=== PATIENT | male | born 1955 | race Caucasian/White ===

== ENCOUNTER → 2016-05-23 | Outpatient (CLI) | payer OTHER ==
[~2016-05-23] MED LIST: /ARTH50TA PO; /DULO30CA PO; /GLIP10TAB OR; /GLIP10TAB PO; /LOR25TA PO; ACTO15TA OR; ACTO30TA6 PO; AMLO10TA2 PO; AMRI15CA PO; AMRIX PO; ARTHROTEC PO; ASPI81TA7 PO; ASPI81TA83 OR; ASPI81TA85 PO; BUTR5DIS2 TOP; CINN500C9 PO; COLA50CA3 PO; CORE12.5 PO; CYMB60CA3 PO; DOCU10CA PO; FLECTOR1.3 TOP; FURO20TA2 PO; GEMF600T OR; GEMF600T PO; GLUC1000 OR; INSUH10VL SUBQ; LASI20TA OR; LASI20TA PO; LEVEMIR INSULIN SC; LIMBREL PO; LOPR50TA OR; LOPR50TA PO; LORTAB OR; LYRI150C OR; LYRI150C PO; LYRI200C PO; METF500T PO; MS CONTIN OR; NOVOINJ3 SC; OXYC1TAB15 PO; REGL10TA6 PO; RYZOLT PO; SENO8.6T9 OR; SIMV80TA OR; SPIR25TA2 PO; SPIR50TA2 PO; TPS CREAM TOP; ULTR300T OR; ULTR50TA PO; VITA200015 PO; VITA500046 PO; VOLT1GEL2 TOP; ZANA4CAP OR; ZANA4CAP PO; [UNRECOGNIZED DRUG - CODE] PO; [UNRECOGNIZED DRUG - CODE] PO; [UNRECOGNIZED DRUG - CODE] PO; colace PO; norco PO; vitamin b SC
--- NOTE | 2016-06-11 23:27 | ECWPNPC ---
PATIENT NAME: CASH AYERS : 1955 GENDER: MALE VISIT DATE: 05/23/2016 DISCHARGE DATE: 05/23/16 1522 VISIT LOCKED DATE TIME: PHYSICIAN: ESTELA CONNOLLY RESOURCE: ESTELA CONNOLLY HISTORY OF PRESENT ILLNESS HISTORY OF PRESENT ILLNESS: PAIN THE PATIENT DESCRIBES THE PAIN... FALL RISK SCREENING: SCREENING :NO FALLS IN THE PAST YEAR TODAY'S VISIT: CONTINUES W LBP R>L W RADIATION INTO RIGHT LEG. THIS IS A WORK RELATED INJURY DOI :Mar. VAS 9.5/10 PAIN SCORE. PAIN AGGREVATED W WALKING OR PROLONGED SITTING. REPORTS GOOD EFFECT AT REDUCING PAIN AND KEEPING FUNCTIONAL W USE OF CURRENT PAIN MEDICATION . CURRENT CHRONIC PAIN MEDICATION:PERCOCET 7.5/325 Q4 HR PRN AND CYMBALTA 60MG DAILY.DENIES ADVERSE EFFECT W MEDICATION. CURRENT MEDICATIONS TAKING ASPIR-81 81 MG TABLET DELAYED RELEASE 1 TABLET ORALLY DAILY TAKING COREG 12.5 MG TABLET ORALLY BID TAKING CHOLECALCIFEROL 5000 UNIT CAPSULE ORALLY DAILY TAKING CINNAMON 500 MG CAPSULE ORALLY BID TAKING FUROSEMIDE 20 MG TABLET 1 TABLET ORALLY DAILY TAKING INSULIN NPH (HUMAN) (ISOPHANE) 100 UNIT/ML SUSPENSION SUBCUTANEOUS 40U AM 70U PM TAKING CYMBALTA 60 MG CAPSULE DELAYED RELEASE PARTICLES 1 CAPSULE ORALLY ONCE A DAY TAKING OXYCODONE-ACETAMINOPHEN 7.5-325 MG TABLET 1-2 ORALLY TID PRN MDD 6 NOT-TAKING GLIPIZIDE 10 MG TABLET 1 TABLET ORALLY BID NOT-TAKING METFORMIN HCL 500 MG TABLET 1 TABLET WITH MEALS ORALLY TWICE A DAY NOT-TAKING COLACE 100 MG CAPSULE 1 CAPSULE NEEDED ORALLY ONCE A DAY MEDICATION LIST REVIEWED AND RECONCILED WITH THE PATIENT PAST MEDICAL HISTORY IDDM HTN CHRONIC LOW BACK PAIN DIABETIC NEUROPATHY ALLERGIES FENTANYL: NAUSEA AND VOMITING: ALLERGY SULFA (FOR ALLERGY USE ONLY): HIVES: ALLERGY ALEX INHIBITOR (FOR ALLERGIES USE ONLY): THROAT CLOSES: ALLERGY PREGABALIN: EDEMA SOB: ALLERGY BUPRENORPHINE: UPSET STOMACH: ALLERGY CELEBREX: SKIN BLISTERS: ALLERGY SOCIAL HISTORY GENERAL: TOBACCO USE ARE YOU A:NONSMOKER LEARNING BARRIERS / SPECIAL NEEDS ORIENTED TO PLAN OF CARE: PATIENT, PAIN MANAGEMENT PATIENT, ORIENTED TO PLAN OF CARE: PATIENT, PAIN MANAGEMENT PATIENT. NEW PATIENT PAIN DIARY TODAY'S VISITNOTES FROM 0-10, WHAT LEVEL IS YOUR PAIN TODAY?0 PAIN CLINIC PFS, CLERGY, PUBLIC HEALTH REFERRALS PFS REFERRAL NEEDED?NO CLERGY REFERRAL NEEDED?NO PUBLIC HEALTH REFERRAL NEEDED?NO WAS THE PROVIDER NOTIFIED OF ANY PERTINENT INFO?NO PFS REFERRAL NEEDED?NO CLERGY REFERRAL NEEDED?NO PUBLIC HEALTH REFERRAL NEEDED?NO WAS THE PROVIDER NOTIFIED OF ANY PERTINENT INFO?NO REVIEW OF SYSTEMS CONSTITUTIONAL: ANY CHANGE IN YOUR MEDICAL CONDITION? NO . CHILLS NO . FEVER NO . INFECTION: DO YOU HAVE NEW INFECTIONS? NO . DO YOU HAVE HISTORY OF MRSA? NO . MUSCULOSKELETAL: ANY NEW PATTERNS OF PAIN OR NUMBNESS? NO . GASTROENTEROLOGY: ANY NEW CHANGE IN BOWEL CONTROL? NO . GENITOURINARY: ANY NEW CHANGE IN BLADDER CONTROL? NO . IS THERE A CHANCE YOU COULD BE ? NO . HEMATOLOGY/LYMPH: DO YOU TAKE ANY BLOOD THINNERS? (FOR EXAMPLE- COUMADIN, PLAVIX, AGGRENOX, PLATEL, PRADAXA, OR XARELTO) NO . WHEN WAS YOUR LAST DOSE? DATE: TIME: . NEUROLOGY: HAVE YOU FALLEN IN THE PAST 6 MONTHS? FELL SEVERAL TIMES SINCE WE LAST SAW &QUOT;7&QUOT; . ANY NEW EXTREMITY NUMBNESS OR WEAKNESS? NO . CARDIOLOGY: DO YOU HAVE A PACEMAKER OR DEFIBRILLATOR? NO . RESPIRATORY: HAVE YOU BEEN SICK IN THE PAST WEEK? NO . FEVER NO . FLU LIKE SYMPTOMS? NO . COUGH NO . INTEGUMENTARY: DO YOU HAVE ANY RASHES OR OPEN SORES? NO . ALLERGIC/IMMUNO: ARE YOU ALLERGIC TO SHELLFISH OR IV DYE? NO . ANY NEW ALLERGIES? NO . PSYCHIATRIC: DO YOU HAVE THOUGHTS OF HURTING YOURSELF OR SOMEONE ELSE? NO . ARE YOU ABUSED, NEGLECTED, OR IN AN UNSAFE ENVIRONMENT? NO . ENDOCRINOLOGY: ARE YOU DIABETIC? NO . OTHER: DO YOU NEED ANY PRESCRIPTIONS? YES . IF YES, PLEASE LIST: ____ . ANY NEW PROBLEMS WITH YOUR MEDICATIONS? NO . WHEN DID YOU LAST EAT? ____ . WHEN DID YOU LAST DRINK? ____ . WHAT DID YOU LAST DRINK? ____ . NAME OF PERSON DRIVING YOU HOME? ____ . DO YOU HAVE ANY OTHER QUESTIONS OR CONCERNS NO . REVIEWED BY: PROVIDER: ESTELA ANGULO . VITAL SIGNS WT 232 LBS, HT 68 IN, BMI 35.27 INDEX, BP 160/98 MM HG, HR 75 /MIN, RR 18 /MIN, TEMP 96.9 F, OXYGEN SAT % 96%, NA INITIALS SC 14:13, REVIEWED BY: KG. EXAMINATION GENERAL EXAMINATION: LUNGS:LUNG SOUNDS ARE CLEAR. HEART:HEART RATE REGULAR. MUSCULOSKELETAL:*, MUSCLE STRENGTH TESTING 3/5 RIGHT LEG 2/5 LEFT, PALPATION: POSITIVE FOR PAIN OVER L/S SPINE. POSITIVE FOR PAIN OVER L/S PARSPINALS. DIAGNOSTIC: . ASSESSMENTS POST LAMINECTOMY SYNDROME - M96.1 (PRIMARY) CHRONIC PRESCRIPTION OPIATE USE - Z79.899 SACROILIAC JOINT PAIN - M53.3 TREATMENT POST LAMINECTOMY SYNDROME REFILL CYMBALTA CAPSULE DELAYED RELEASE PARTICLES, 60 MG, 1 CAPSULE, ORALLY, ONCE A DAY, 30 DAY(S), 30 CAPSULE, REFILLS 2 REFILL OXYCODONE-ACETAMINOPHEN TABLET, 7.5-325 MG, 1-2, ORALLY, TID PRN MDD 6, 30 DAY(S), 180, REFILLS 0 START CYCLOBENZAPRINE HCL TABLET, 10 MG, 1 TABLET, ORALLY, THREE TIMES A DAY, 30 DAY(S), 30, REFILLS 1 INJECTION ANESTHETIC SACROILIAC JOINT NOTES: ISTOP REGISTRY REVIEWED AND DEMNOSTRATES COMPLLIANCE. BRINGS IN MEDICATIONS WHICH IS APPROPRIATE FOR WHAT WAS DISPENSED. RECENT URINE TOXICOLOGY REVIEWED. NO UNAUTHORIZED MEDICATIONS. NO ILLICIT SUBSTANCES AND PRESCRIBED MEDICATIONS WERE PRESENT. , RISKS AND BENEFITS OF NARCOTIC/OPIOD MEDICATIONS WERE REVIEWED WITH PATIENT - THIS INCLUDES BUT IS NOT LIMITED TO RISK OF DEPENDANCE/DEVELOPMENT OF ADDICTION, MOOD DISTURBANCE AND DEPRESSION, OSTEOPOROSIS, HORMONAL AND LABIDAL CHANGES, RESPIRATORY DEPRESSION AND . PATIENT IS ADVISED NOT TO DRIVE WHILE ON THESE MEDICATIONS.URINE TOX TODAY. PROCEDURES PN WORKMANS' COMP OPINION IN YOUR OPINION, WAS THE INCIDENT THAT THE PATIENT DESCRIBED THE COMPETENT MEDICAL CAUSE OF THIS INJURY/ILLNESS? YES ARE THE PATIENT'S COMPLAINTS CONSISTENT WITH HIS/HER HISTORY OF THE INJURY/ILLNESS? YES IS THE PATIENT'S HISTORY OF THE INJURY/ILLNESS CONSISTENT WITH YOUR OBJECTIVE FINDING? YES WHAT IS THE PERCENTAGE OF TEMPORARY IMPAIRMENT? MODERATE TO MARKED = 66.7% IS THE PATIENT WORKING? NO DOCTOR ON SITE: ONUR BIRMINGHAM MD FOLLOW UP 2WK POST W DR LAFLEUR (REASON: RSIJ W/C) ELECTRONICALLY SIGNED BY ADELE DUMONT ON 06/09/2016 AT 11:36 AM EST DISCLAIMER : THIS IS A VISIT SUMMARY EXTRACTED FROM THE [employer] CHART. IT IS NOT A COPY OF THE [employer] PROGRESS NOTE. REGULO
== END ==
LOC: M PAIN 14:00
PROVIDERS: ATTEND Nurse Practitioner Family
DX: Z09 Encounter for follow-up examination after completed treatment for conditions other than malignant neoplasm (principal); G89.29 Other chronic pain; M96.1 Postlaminectomy syndrome, not elsewhere classified; M53.3 Sacrococcygeal disorders, not elsewhere classified; E11.40 Type 2 diabetes mellitus with diabetic neuropathy, unspecified; Z79.4 Long term (current) use of insulin; I10 Essential (primary) hypertension; Z79.82 Long term (current) use of aspirin; Z79.891 Long term (current) use of opiate analgesic; Z79.899 Other long term (current) drug therapy; Z88.5 Allergy status to narcotic agent; Z88.2 Allergy status to sulfonamides; Z88.8 Allergy status to other drugs, medicaments and biological substances

== ENCOUNTER → 2016-06-30 | Outpatient (CLI) | payer OTHER ==
[~2016-06-30] MED LIST changes: +BUPIVACAINE HCL 0.25% 30 ML VIAL As Ordered ONE; +ISOVUE-M 300 61% 15ML VIAL (Q9967) As Ordered ONE; +LIDOCAINE 1% SDV INJ 30 ML VIAL As Ordered ONE; +TRIAMCINOLONE ACETONIDE SUSP 40 MG/ML VIAL (J3301) As Ordered ONE
--- NOTE | 2016-06-30 12:13 | REP ---
SI joint series: Limited study five views. History: Right-sided SI joint block for pain. 18 seconds of fluoroscopy time is reported. Findings: A sequence of five fluoroscopically obtained intraprocedural spot radiographs of the right SI joint document various needle positions and contrast injections associated with right SI joint injection procedure. Signed by Todd Barrios MD 06/30/2016 01:31 P
--- NOTE | 2016-07-07 01:07 | ECWPNPC ---
PATIENT NAME: CASH AYERS : 1955 GENDER: MALE VISIT DATE: 06/30/2016 DISCHARGE DATE: 06/30/16 1056 VISIT LOCKED DATE TIME: PHYSICIAN: ONUR LAFLEUR RESOURCE: ONUR LAFLEUR REASON FOR APPOINTMENT 1. SIJ RIGHT HISTORY OF PRESENT ILLNESS HISTORY OF PRESENT ILLNESS: PAIN THE PATIENT DESCRIBES THE PAIN... FALL RISK SCREENING: SCREENING :NO FALLS IN THE PAST YEAR CURRENT MEDICATIONS TAKING ASPIR-81 81 MG TABLET DELAYED RELEASE 1 TABLET ORALLY DAILY, NOTES: 06/30/16729 TAKING COREG 12.5 MG TABLET ORALLY BID, NOTES: 06/30/16729 TAKING CHOLECALCIFEROL 5000 UNIT CAPSULE ORALLY DAILY, NOTES: 06/30/16729 TAKING CINNAMON 500 MG CAPSULE ORALLY BID, NOTES: 06/30/1606/17/729 TAKING FUROSEMIDE 20 MG TABLET 1 TABLET ORALLY DAILY, NOTES: 06/30/16729 TAKING INSULIN NPH (HUMAN) (ISOPHANE) 100 UNIT/ML SUSPENSION SUBCUTANEOUS 40U AM 70U PM, NOTES: 06/29/16 2300 TAKING CYMBALTA 60 MG CAPSULE DELAYED RELEASE PARTICLES 1 CAPSULE ORALLY ONCE A DAY, NOTES: 06/29/162099 TAKING OXYCODONE-ACETAMINOPHEN 7.5-325 MG TABLET 1-2 ORALLY TID PRN MDD 6, NOTES: 06/29/162099 TAKING CYCLOBENZAPRINE HCL 10 MG TABLET 1 TABLET ORALLY THREE TIMES A DAY, NOTES: 06/29/162099 NOT-TAKING GLIPIZIDE 10 MG TABLET 1 TABLET ORALLY BID NOT-TAKING METFORMIN HCL 500 MG TABLET 1 TABLET WITH MEALS ORALLY TWICE A DAY NOT-TAKING COLACE 100 MG CAPSULE 1 CAPSULE NEEDED ORALLY ONCE A DAY MEDICATION LIST REVIEWED AND RECONCILED WITH THE PATIENT PAST MEDICAL HISTORY IDDM HTN CHRONIC LOW BACK PAIN DIABETIC NEUROPATHY ALLERGIES FENTANYL: NAUSEA AND VOMITING: ALLERGY SULFA (FOR ALLERGY USE ONLY): HIVES: ALLERGY ALEX INHIBITOR (FOR ALLERGIES USE ONLY): THROAT CLOSES: ALLERGY PREGABALIN: EDEMA SOB: ALLERGY BUPRENORPHINE: UPSET STOMACH: ALLERGY CELEBREX: SKIN BLISTERS: ALLERGY SOCIAL HISTORY GENERAL: TOBACCO USE ARE YOU A:NONSMOKER LEARNING BARRIERS / SPECIAL NEEDS ORIENTED TO PLAN OF CARE: PATIENT, PAIN MANAGEMENT PATIENT, ORIENTED TO PLAN OF CARE: PATIENT, PAIN MANAGEMENT PATIENT. NEW PATIENT PAIN DIARY TODAY'S VISITNOTES FROM 0-10, WHAT LEVEL IS YOUR PAIN TODAY?0 PAIN CLINIC PFS, CLERGY, PUBLIC HEALTH REFERRALS PFS REFERRAL NEEDED?NO CLERGY REFERRAL NEEDED?NO PUBLIC HEALTH REFERRAL NEEDED?NO WAS THE PROVIDER NOTIFIED OF ANY PERTINENT INFO?NO PFS REFERRAL NEEDED?NO CLERGY REFERRAL NEEDED?NO PUBLIC HEALTH REFERRAL NEEDED?NO WAS THE PROVIDER NOTIFIED OF ANY PERTINENT INFO?NO REVIEW OF SYSTEMS CONSTITUTIONAL: ANY CHANGE IN YOUR MEDICAL CONDITION? NO . CHILLS NO . FEVER NO . INFECTION: DO YOU HAVE NEW INFECTIONS? NO . DO YOU HAVE HISTORY OF MRSA? NO . MUSCULOSKELETAL: ANY NEW PATTERNS OF PAIN OR NUMBNESS? NO . GASTROENTEROLOGY: ANY NEW CHANGE IN BOWEL CONTROL? NO . GENITOURINARY: ANY NEW CHANGE IN BLADDER CONTROL? NO . IS THERE A CHANCE YOU COULD BE ? NO . HEMATOLOGY/LYMPH: DO YOU TAKE ANY BLOOD THINNERS? (FOR EXAMPLE- COUMADIN, PLAVIX, AGGRENOX, PLATEL, PRADAXA, OR XARELTO) NO . WHEN WAS YOUR LAST DOSE? DATE: TIME: . NEUROLOGY: HAVE YOU FALLEN IN THE PAST 6 MONTHS? NO . ANY NEW EXTREMITY NUMBNESS OR WEAKNESS? NO . CARDIOLOGY: DO YOU HAVE A PACEMAKER OR DEFIBRILLATOR? NO . RESPIRATORY: HAVE YOU BEEN SICK IN THE PAST WEEK? NO . FEVER NO . FLU LIKE SYMPTOMS? NO . COUGH NO . INTEGUMENTARY: DO YOU HAVE ANY RASHES OR OPEN SORES? NO . ALLERGIC/IMMUNO: ARE YOU ALLERGIC TO SHELLFISH OR IV DYE? NO . ANY NEW ALLERGIES? NO . PSYCHIATRIC: DO YOU HAVE THOUGHTS OF HURTING YOURSELF OR SOMEONE ELSE? NO . ARE YOU ABUSED, NEGLECTED, OR IN AN UNSAFE ENVIRONMENT? NO . ENDOCRINOLOGY: ARE YOU DIABETIC? NO . OTHER: DO YOU NEED ANY PRESCRIPTIONS? YES CYCLOBENZAPRINE, OXYCODONE . IF YES, PLEASE LIST: ____ . ANY NEW PROBLEMS WITH YOUR MEDICATIONS? NO . WHEN DID YOU LAST EAT? ____06/29/16 1730 . WHEN DID YOU LAST DRINK? ____06/30/16 0800 . WHAT DID YOU LAST DRINK? ____BLACK COFFEE . NAME OF PERSON DRIVING YOU HOME? ____WIFE DOLORES . DO YOU HAVE ANY OTHER QUESTIONS OR CONCERNS NO . REVIEWED BY: PROVIDER: . VITAL SIGNS WT 230 LBS, HT 68 IN, BMI 34.97 INDEX, BP 130/80 MANUAL, HR 75 /MIN, RR 18 /MIN, TEMP 96.5 F, OXYGEN SAT % 96%, NA INITIALS SC 09:14, REVIEWED BY: ASSESSMENTS SACROILIITIS, NOT ELSEWHERE CLASSIFIED - M46.1 (PRIMARY) PROCEDURES PN SI PRE PROCEDURE DIAGNOSIS SACROILIITIS, SACROILIAC JOINT DYSFUNCTION POST PROCEDURE DIAGNOSIS SACROILIITIS, SACROILIAC JOINT DYSFUNCTION PROCEDURE RIGHT SACROILIAC JOINT BLOCK SURGEON DR. 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 I EVALUATED THE PATIENT AND REVIEWED THE CHART. I WENT OVER THE RISKS, ALTERNATIVES, AND BENEFITS ASSOCIATED WITH THIS PROCEDURE. THE PATIENT WOULD LIKE TO PROCEED AND GAVE CONSENT TO PERFORM THE PROCEDURE. THE PATIENT DENIES UNEXPLAINABLE WEIGHT LOSS, FEVER, CHILLS, OR NEW CHANGES IN URINARY OR BOWEL CONTROL. DESCRIPTION OF PROCEDURE THE PATIENT WAS BROUGHT TO THE PROCEDURE ROOM AND PLACED IN THE PRONE POSITION. THE LUMBOSACRAL AREA WAS CLEANED WITH CHLORAPREP SOLUTION AND DRAPED ASEPTICALLY. THE PROCEDURE WAS DONE UNDER STERILE CONDITIONS. I CHECKED LATERALITY AND THE LEVEL WHERE THE PROCEDURE WAS GOING TO BE PERFORMED WITH THE PATIENT AND THE SUPPORTING STAFF AT THE MOMENT OF THE TIME OUT IN THE PROCEDURE ROOM. UNDER FLUOROSCOPIC GUIDANCE, TARGET POINT WAS SELECTED AT THE LOWER BORDER OF THE RIGHT SACROILIAC JOINT. TARGET POINT WAS SELECTED AFTER MEDIAL ROTATION AND TILT OF THE MAGNIFIER OF THE C-ARM. LIDOCAINE WAS USED TO NUMB THE SKIN AND SUBCUTANEOUS TISSUE BELOW IT. A SPINAL NEEDLE, 22-GAUGE, WAS ADVANCED UNDER FLUOROSCOPIC GUIDANCE AND FOLLOWING PATIENT FEEDBACK UNTIL THE TARGET AREA WAS TOUCHED. THE POSITION OF THE NEEDLE WAS VERIFIED WITH AP AND LATERAL VIEWS. AFTER PROPER POSITION OF THE NEEDLE WAS ACHIEVED, ISOVUE M DYE 30%, 0.25 ML, WAS INJECTED SHOWING SPREAD OF THE DYE. THEN, A SOLUTION OF 20 MG OF KENALOG WAS INJECTED IN RIGHT JOINT WITH 3 ML OF BUPIVACAINE 0.125%. THERE WAS NO EVIDENCE OF BLOOD, PARESTHESIA OR CEREBROSPINAL FLUID DURING THE PROCEDURE. THE PATIENT WAS SENT TO THE RECOVERY ROOM. THE PATIENT WAS MOVING THE EXTREMITIES AND DOING WELL. THERE WAS NO COMPLICATION DURING THE PROCEDURE. FLUOROSCOPY TIME WAS 18 SECONDS. POST PROCEDURE NOTE THE PATIENT WILL BE SEEN IN A FOLLOW UP IN THE NEXT FEW WEEKS. INSTRUCTIONS WERE GIVEN, QUESTIONS WERE ANSWERED, AND THE PATIENT EXPRESSED UNDERSTANDING AND AGREED WITH THE PLAN. INSTRUCTIONS WERE GIVEN, QUESTIONS WERE ANSWERED, PATIENT REPORTS UNDERSTANDING AND AGREES WITH THE PLAN. I, JOSE MANUEL MORRIS, DOCUMENTED THE ABOVE INFORMATION ACTING A SCRIBE FOR DR. LAFLEUR. I HAVE REVIEWED THE ABOVE DOCUMENT, WRITTEN BY JOSE MANUEL MORRIS SCRIBE AND I VERIFY THAT IT IS ACCURATE. PN WORKMANS' COMP OPINION IN YOUR OPINION, WAS THE INCIDENT THAT THE PATIENT DESCRIBED THE COMPETENT MEDICAL CAUSE OF THIS INJURY/ILLNESS? YES ARE THE PATIENT'S COMPLAINTS CONSISTENT WITH HIS/HER HISTORY OF THE INJURY/ILLNESS? YES IS THE PATIENT'S HISTORY OF THE INJURY/ILLNESS CONSISTENT WITH YOUR OBJECTIVE FINDING? YES WHAT IS THE PERCENTAGE OF TEMPORARY IMPAIRMENT? MODERATE TO MARKED = 66.7% IS THE PATIENT WORKING? NO DOCTOR ON SITE: ONUR BIRMINGHAM MD DIAGNOSTIC IMAGING [facility] FLUORO GUIDANCE (PAIN)[id number] PROCEDURE CODES 46296 INJECT SACROILIAC JOINT 6045F RADXPS IN END [id number] PXD DISPOSITION & COMMUNICATION FOLLOW UP 3 WEEKS ELECTRONICALLY SIGNED BY ONUR LAFLEUR MD ON 07/06/2016 AT 06:50 AM EST DISCLAIMER : THIS IS A VISIT SUMMARY EXTRACTED FROM THE [employer] CHART. IT IS NOT A COPY OF THE [employer] PROGRESS NOTE. MTDD
== END ==
LOC: M PAIN 09:10
PROVIDERS: ATTEND Anesthesiology
DX: G89.29 Other chronic pain (principal); M46.1 Sacroiliitis, not elsewhere classified; M53.88 Other specified dorsopathies, sacral and sacrococcygeal region; E11.9 Type 2 diabetes mellitus without complications; I10 Essential (primary) hypertension; Z79.82 Long term (current) use of aspirin; Z79.4 Long term (current) use of insulin; Z79.891 Long term (current) use of opiate analgesic; Z79.899 Other long term (current) drug therapy
CPT/HCPCS: G0260; J3301; Q9967

== ENCOUNTER → 2016-08-03 | Outpatient (CLI) | payer OTHER ==
[~2016-08-03] MED LIST changes: -BUPIVACAINE HCL 0.25% 30 ML VIAL As Ordered ONE; -ISOVUE-M 300 61% 15ML VIAL (Q9967) As Ordered ONE; -LIDOCAINE 1% SDV INJ 30 ML VIAL As Ordered ONE; -TRIAMCINOLONE ACETONIDE SUSP 40 MG/ML VIAL (J3301) As Ordered ONE
--- NOTE | 2016-08-17 00:37 | ECWPNPC ---
PATIENT NAME: CASH AYERS : 1955 GENDER: MALE VISIT DATE: 08/03/2016 DISCHARGE DATE: 08/03/16 1513 VISIT LOCKED DATE TIME: PHYSICIAN: ONUR LAFLEUR RESOURCE: ONUR LAFLEUR REASON FOR APPOINTMENT 1. W/C POST PROCEDURE HISTORY OF PRESENT ILLNESS HISTORY OF PRESENT ILLNESS: PAIN THE PATIENT DESCRIBES THE PAIN... 61 YEAR OLD MALE PATIENT WITH HISTORY OF CHRONIC BACK AND LEG PAIN. PATIENT DESCRIBES THE PAIN ACHING, BURNING, SHARP, STABBING, TENDER, THROBBING, SORE, SHOOTING, AND HAVING IT ALL THE TIME WITH A PAIN SCORE OF 9/10 ON TODAY'S VISIT. 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 PATIENT REPORTS OF HAVING BACK SURGERY IN 2004 AND 1996. PATIENT REPORTS THAT HE HAD A DCS PUT IN 3 YEARS AGO IN NOVEMBER. PATIENT REPORTS OF HAVING TRIED PHYSICAL THERAPY IN THE PAST HE WOULD SEE AND FEEL IMPROVEMENTS IN HIS PAIN AND RANGE OF MOTION THEN COMP WOULD STOP PAYING FOR IT. PATIENT RECEIVED AN SIJ ON 06/30/2016 AND STATES THAT HE SAW OVER 50% DECREASE IN HIS PAIN FOR ABOUT 3 WEEKS, AND THEN THE PAIN STARTED TO COME BACK SLOWLY .PATIENT REPORTS OF PAIN IN BOTH LEGS BUT THE RIGHT LEG IS MORE PAINFUL THAN THE LEFT LEG. PATIENT REPORTS OF TAKING LYRICA IN THE PAST AND IT WORKED GOOD FOR HIS PAIN RELIEF, BUT IT CAUSED HIM TO GAIN WEIGHT SIGNIFICANTLY. PATIENT DENIES UNEXPLAINABLE WEIGHT LOSS, FEVER, CHILLS, NEW CHANGES ON HIS URINARY OR BOWEL CONTROL. FALL RISK SCREENING: SCREENING :NO FALLS IN THE PAST YEAR CURRENT MEDICATIONS TAKING ASPIR-81 81 MG TABLET DELAYED RELEASE 1 TABLET ORALLY DAILY, NOTES: 06/30/16729 TAKING COREG 12.5 MG TABLET ORALLY BID, NOTES: 06/30/16729 TAKING CHOLECALCIFEROL 5000 UNIT CAPSULE ORALLY DAILY, NOTES: 06/30/16729 TAKING CINNAMON 500 MG CAPSULE ORALLY BID, NOTES: 06/30/1606/17/729 TAKING FUROSEMIDE 20 MG TABLET 1 TABLET ORALLY DAILY, NOTES: 06/30/16729 TAKING INSULIN NPH (HUMAN) (ISOPHANE) 100 UNIT/ML SUSPENSION SUBCUTANEOUS 70U AM 70U PM, NOTES: 06/29/16 2300 TAKING CYMBALTA 60 MG CAPSULE DELAYED RELEASE PARTICLES 1 CAPSULE ORALLY ONCE A DAY, NOTES: 06/29/16 2100 TAKING OXYCODONE-ACETAMINOPHEN 7.5-325 MG TABLET 1-2 ORALLY TID PRN MDD 6, NOTES: 06/29/162099 TAKING CYCLOBENZAPRINE HCL 10 MG TABLET 1 TABLET ORALLY THREE TIMES A DAY, NOTES: 06/29/162099 TAKING NOVOLOG FLEXPEN 100 UNIT/ML SOLUTION SUBCUTANEOUS SLIDING SCALE WITH MEALS NOT-TAKING COLACE 100 MG CAPSULE 1 CAPSULE NEEDED ORALLY ONCE A DAY DISCONTINUED GLIPIZIDE 10 MG TABLET 1 TABLET ORALLY BID DISCONTINUED METFORMIN HCL 500 MG TABLET 1 TABLET WITH MEALS ORALLY TWICE A DAY MEDICATION LIST REVIEWED AND RECONCILED WITH THE PATIENT PAST MEDICAL HISTORY IDDM HTN CHRONIC LOW BACK PAIN DIABETIC NEUROPATHY ALLERGIES FENTANYL: NAUSEA AND VOMITING: ALLERGY SULFA (FOR ALLERGY USE ONLY): HIVES: ALLERGY ALEX INHIBITOR (FOR ALLERGIES USE ONLY): THROAT CLOSES: ALLERGY PREGABALIN: EDEMA SOB: ALLERGY BUPRENORPHINE: UPSET STOMACH: ALLERGY CELEBREX: SKIN BLISTERS: ALLERGY SURGICAL HISTORY DOUBLE INGUINAL HERNIA 1984 EYE SURGERY 1960 EYE SURGERY 1985 BILATERAL CATERACATS 2014 BACK SURGERY 1996 BACK SURGERY 2004 DCS 2012 FAMILY HISTORY NO FAMILY HISTORY DOCUMENTED. SOCIAL HISTORY GENERAL: PAIN CLINIC PFS, CLERGY, PUBLIC HEALTH REFERRALS CLERGY REFERRAL NEEDED?NO WAS THE PROVIDER NOTIFIED OF ANY PERTINENT INFO?NO PFS REFERRAL NEEDED?NO PUBLIC HEALTH REFERRAL NEEDED?NO PATIENT: ____. HOSPITALIZATION/MAJOR DIAGNOSTIC PROCEDURE NO HOSPITALIZATION HISTORY. REVIEW OF SYSTEMS CONSTITUTIONAL: ANY CHANGE IN YOUR MEDICAL CONDITION? NO . CHILLS NO . FEVER NO . INFECTION: DO YOU HAVE NEW INFECTIONS? NO . DO YOU HAVE HISTORY OF MRSA? NO . MUSCULOSKELETAL: ANY NEW PATTERNS OF PAIN OR NUMBNESS? NO . GASTROENTEROLOGY: ANY NEW CHANGE IN BOWEL CONTROL? NO . GENITOURINARY: ANY NEW CHANGE IN BLADDER CONTROL? NO . IS THERE A CHANCE YOU COULD BE ? NO . HEMATOLOGY/LYMPH: DO YOU TAKE ANY BLOOD THINNERS? (FOR EXAMPLE- COUMADIN, PLAVIX, AGGRENOX, PLATEL, PRADAXA, OR XARELTO) NO . WHEN WAS YOUR LAST DOSE? DATE: TIME: . NEUROLOGY: HAVE YOU FALLEN IN THE PAST 6 MONTHS? NO . ANY NEW EXTREMITY NUMBNESS OR WEAKNESS? NO . CARDIOLOGY: DO YOU HAVE A PACEMAKER OR DEFIBRILLATOR? NO . RESPIRATORY: HAVE YOU BEEN SICK IN THE PAST WEEK? NO . FEVER NO . FLU LIKE SYMPTOMS? NO . COUGH NO . INTEGUMENTARY: DO YOU HAVE ANY RASHES OR OPEN SORES? NO . ALLERGIC/IMMUNO: ARE YOU ALLERGIC TO SHELLFISH OR IV DYE? NO . ANY NEW ALLERGIES? NO . PSYCHIATRIC: DO YOU HAVE THOUGHTS OF HURTING YOURSELF OR SOMEONE ELSE? NO . ARE YOU ABUSED, NEGLECTED, OR IN AN UNSAFE ENVIRONMENT? NO . ENDOCRINOLOGY: ARE YOU DIABETIC? YES . OTHER: DO YOU NEED ANY PRESCRIPTIONS? YES . IF YES, PLEASE LIST: OXYCODONE . ANY NEW PROBLEMS WITH YOUR MEDICATIONS? NO . WHEN DID YOU LAST EAT? ____ . WHEN DID YOU LAST DRINK? ____ . WHAT DID YOU LAST DRINK? ____ . NAME OF PERSON DRIVING YOU HOME? ____ . DO YOU HAVE ANY OTHER QUESTIONS OR CONCERNS NO . REVIEWED BY: PROVIDER: ONUR LAFLEUR MD . VITAL SIGNS WT 228.0 LBS, HT 68 IN, BMI 34.66 INDEX, BP 146/80 MANUAL, HR 98 /MIN, RR 18 /MIN, TEMP 98.8 F, OXYGEN SAT % 96%, NA INITIALS TL 1324, REVIEWED BY: CM. EXAMINATION : PATIENT IS ALERT O X 3 AND COOPERATIVE. PATIENT AMBULATES WITH HOLDING A CANE ON THE LEFT HAND. PATIENT LEFT LEG IS WEAKER AT FLEXION AND EXTENSION THAN THE RIGHT LEG. THERE IS TENDERNESS IN THE LOW BACK PARASPINAL MUSCLE GROUP ESPECIALLY WITH TENDERNESS IN THE FACET JOINTS. CT OF THE LUMBAR SPINE DONE ON 06/25/2012 SHOWS FACET ARTHROPATHY CHANGES AND DISC BULGES AT MULTIPLE LEVELS. 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, LUMBAR REGION - M47.816 SPONDYLOSIS WITHOUT MYELOPATHY OR RADICULOPATHY, LUMBOSACRAL REGION - M47.817 TREATMENT POST LAMINECTOMY SYNDROME REFILL CYMBALTA CAPSULE DELAYED RELEASE PARTICLES, 60 MG, 1 CAPSULE, ORALLY, BID FOR PAIN, 30 DAY(S), 60, REFILLS 2, NOTES: 06/29/16 2100 REFILL OXYCODONE-ACETAMINOPHEN TABLET, 7.5-325 MG, 1-2, ORALLY, TID PRN MDD 6, 30 DAY(S), 180, REFILLS 0, NOTES: 06/29/162099 REFILL CYCLOBENZAPRINE HCL TABLET, 10 MG, 1 TABLET, ORALLY FOR SPASMS, THREE TIMES A DAY NEEDED, 30 DAY(S), 75, REFILLS 1, NOTES: 06/29/162099 NOTES: FACET JOINT INJECTION MATERIAL WAS PRINTED,FACET JOINT INJECTION: YOUR EXPERIENCE MATERIAL WAS PRINTED. CLINICAL NOTES: WE DISCUSSED SEVERAL ISSUES WITH MR. AYERS'S PAIN MANAGEMENT CASE. AT THIS TIME THE PATIENT WILL CONTINUE WITH THE SAME MEDICATION REGIMEN BEFORE WITH THE EXCEPTION OF CYMBALTA I WILL HAVE THE PATIENT INCREASE TO TAKING IT TWICE A DAY.. I ADVISED THE PATIENT TO CONTACT GITA ODELL FOR REPROGRAMMING OF HIS DCS. AFTER REVIEWING THE CT AND EXAMINING THE PATIENT HE IS A GOOD CANDIDATE FOR A RIGHT LFBT AT L4-S1. WE DISCUSSED THE RISK, BENEFITS, AND ALTERNATIVES AND THE PATIENT WOULD LIKE TO PROCEED. PATIENT WILL BE BOOKED PENDING APPROVAL. I DISCUSSED WITH THE PATIENT ABOUT THE POSSIBILITY OF DECREASING HIS OXYCODONE INTAKE AFTER A PROCEDURE TO HELP GIVE HIS BODY A BREAK. INSTRUCTIONS WERE GIVEN, QUESTIONS WERE ANSWERED, PATIENT REPORTS UNDERSTANDING AND AGREES WITH THE PLAN. I, JOSE MANUEL MORRIS, DOCUMENTED THE ABOVE INFORMATION ACTING A SCRIBE FOR DR. LAFLEUR. I HAVE REVIEWED THE ABOVE DOCUMENT, WRITTEN BY JOSE MANUEL ALEMAN AND I VERIFY THAT IT IS ACCURATE. PROCEDURES PN WORKMANS' COMP OPINION IN YOUR OPINION, WAS THE INCIDENT THAT THE PATIENT DESCRIBED THE COMPETENT MEDICAL CAUSE OF THIS INJURY/ILLNESS? YES ARE THE PATIENT'S COMPLAINTS CONSISTENT WITH HIS/HER HISTORY OF THE INJURY/ILLNESS? YES IS THE PATIENT'S HISTORY OF THE INJURY/ILLNESS CONSISTENT WITH YOUR OBJECTIVE FINDING? YES WHAT IS THE PERCENTAGE OF TEMPORARY IMPAIRMENT? MODERATE TO MARKED = 66.7% IS THE PATIENT WORKING? NO DOCTOR ON SITE: ONUR [place] MD PROCEDURE CODES FA211 ESTABILISHED PATIENT [facility] CHARGE G8730 PAIN ASSESS POS TOOL F/U PLAN DOC G8427 DOC MEDS VERIFIED W/PT OR RE DISPOSITION & COMMUNICATION FOLLOW UP LFBT PENDING APPROVAL ELECTRONICALLY SIGNED BY ONUR LAFLEUR MD ON 08/15/2016 AT 08:14 AM EDT DISCLAIMER : THIS IS A VISIT SUMMARY EXTRACTED FROM THE [employer] CHART. IT IS NOT A COPY OF THE [employer] PROGRESS NOTE. MTDD
== END ==
LOC: M PAIN 13:20
PROVIDERS: ATTEND Anesthesiology
DX: Z09 Encounter for follow-up examination after completed treatment for conditions other than malignant neoplasm (principal); M96.1 Postlaminectomy syndrome, not elsewhere classified; G89.29 Other chronic pain; M47.816 Spondylosis without myelopathy or radiculopathy, lumbar region; M47.817 Spondylosis without myelopathy or radiculopathy, lumbosacral region; E11.40 Type 2 diabetes mellitus with diabetic neuropathy, unspecified; I10 Essential (primary) hypertension; Z88.5 Allergy status to narcotic agent; Z88.2 Allergy status to sulfonamides; Z88.8 Allergy status to other drugs, medicaments and biological substances; Z79.82 Long term (current) use of aspirin; Z79.4 Long term (current) use of insulin; Z79.891 Long term (current) use of opiate analgesic; Z79.899 Other long term (current) drug therapy

== ENCOUNTER → 2016-08-15 | Outpatient (CLI) | payer OTHER ==
--- NOTE | 2016-08-23 01:22 | ECWPNPC ---
PATIENT NAME: CASH AYERS : 1955 GENDER: MALE VISIT DATE: 08/15/2016 DISCHARGE DATE: 08/15/16 1726 VISIT LOCKED DATE TIME: PHYSICIAN: ONUR LAFLEUR RESOURCE: ONUR LAFLEUR REASON FOR APPOINTMENT 1. W/C BACK AND LEG HISTORY OF PRESENT ILLNESS HISTORY OF PRESENT ILLNESS: PAIN THE PATIENT DESCRIBES THE PAIN... 61 YEAR OLD MALE PATIENT WITH HISTORY OF CHRONIC BACK AND LEG PAIN. PATIENT DESCRIBES THE PAIN ACHING, BURNING, SHARP, STABBING, TENDER, THROBBING, SORE, SHOOTING, IT COMES AND GOES, AND HAVING IT ALL THE TIME WITH A PAIN SCORE OF 9/10 ON TODAY'S VISIT. 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 PATIENT REPORTS OF HAVING BACK SURGERY IN 2004 AND 1996. PATIENT REPORTS THAT HE HAD A DCS PUT IN 3 YEARS AGO IN NOVEMBER. PATIENT REPORTS OF HAVING TRIED PHYSICAL THERAPY IN THE PAST HE WOULD SEE AND FEEL IMPROVEMENTS IN HIS PAIN AND RANGE OF MOTION THEN COMP WOULD STOP PAYING FOR IT. PATIENT REPORTS OF PAIN IN BOTH LEGS BUT THE RIGHT LEG IS MORE PAINFUL THAN THE LEFT LEG. PATIENT STATES THAT HIS KNEE BRACE IS NO LONGER SUPPORTING HIS KNEE LIKE BEFORE AND IS LOOKING TO GET IT REPLACED. PATIENT STATES THAT HE HAS SOME MUSCLE SPASMS. PATIENT REPORTS OF TAKING LYRICA IN THE PAST AND IT WORKED GOOD FOR HIS PAIN RELIEF, BUT IT CAUSED HIM TO GAIN WEIGHT SIGNIFICANTLY. PATIENT DENIES UNEXPLAINABLE WEIGHT LOSS, FEVER, CHILLS, NEW CHANGES ON HIS URINARY OR BOWEL CONTROL. FALL RISK SCREENING: SCREENING :NO FALLS IN THE PAST YEAR CURRENT MEDICATIONS TAKING CYMBALTA 60 MG CAPSULE DELAYED RELEASE PARTICLES 1 CAPSULE ORALLY TWICE A DAY, NOTES: 06/29/162099 TAKING OXYCODONE-ACETAMINOPHEN 7.5-325 MG TABLET 1-2 ORALLY TID PRN MDD 6, NOTES: 06/29/162099 TAKING CYCLOBENZAPRINE HCL 10 MG TABLET 1 TABLET ORALLY FOR SPASMS THREE TIMES A DAY NEEDED, NOTES: 06/29/162099 TAKING ASPIR-81 81 MG TABLET DELAYED RELEASE 1 TABLET ORALLY DAILY, NOTES: 06/30/16 0730 TAKING COREG 12.5 MG TABLET ORALLY BID, NOTES: 06/30/16729 TAKING CHOLECALCIFEROL 5000 UNIT CAPSULE ORALLY DAILY, NOTES: 06/30/16729 TAKING CINNAMON 500 MG CAPSULE ORALLY BID, NOTES: 06/30/1606/17/729 TAKING FUROSEMIDE 20 MG TABLET 1 TABLET ORALLY DAILY, NOTES: 06/30/16729 TAKING INSULIN NPH (HUMAN) (ISOPHANE) 100 UNIT/ML SUSPENSION SUBCUTANEOUS 70U AM 70U PM, NOTES: 06/29/16 2300 TAKING NOVOLOG FLEXPEN 100 UNIT/ML SOLUTION SUBCUTANEOUS SLIDING SCALE WITH MEALS NOT-TAKING COLACE 100 MG CAPSULE 1 CAPSULE NEEDED ORALLY ONCE A DAY MEDICATION LIST REVIEWED AND RECONCILED WITH THE PATIENT PAST MEDICAL HISTORY IDDM HTN CHRONIC LOW BACK PAIN DIABETIC NEUROPATHY ALLERGIES FENTANYL: NAUSEA AND VOMITING: ALLERGY SULFA (FOR ALLERGY USE ONLY): HIVES: ALLERGY ALEX INHIBITOR (FOR ALLERGIES USE ONLY): THROAT CLOSES: ALLERGY PREGABALIN: EDEMA SOB: ALLERGY BUPRENORPHINE: UPSET STOMACH: ALLERGY CELEBREX: SKIN BLISTERS: ALLERGY SURGICAL HISTORY DOUBLE INGUINAL HERNIA 1984 EYE SURGERY 1960 EYE SURGERY 1985 BILATERAL CATERACATS 2014 BACK SURGERY 1996 BACK SURGERY 2004 DCS 2012 FAMILY HISTORY NO FAMILY HISTORY DOCUMENTED. SOCIAL HISTORY GENERAL: PAIN CLINIC PFS, CLERGY, PUBLIC HEALTH REFERRALS CLERGY REFERRAL NEEDED?NO WAS THE PROVIDER NOTIFIED OF ANY PERTINENT INFO?NO PFS REFERRAL NEEDED?NO PUBLIC HEALTH REFERRAL NEEDED?NO PATIENT: ____. HOSPITALIZATION/MAJOR DIAGNOSTIC PROCEDURE NO HOSPITALIZATION HISTORY. REVIEW OF SYSTEMS CONSTITUTIONAL: ANY CHANGE IN YOUR MEDICAL CONDITION? NO . CHILLS NO . FEVER NO . INFECTION: DO YOU HAVE NEW INFECTIONS? NO . DO YOU HAVE HISTORY OF MRSA? NO . MUSCULOSKELETAL: ANY NEW PATTERNS OF PAIN OR NUMBNESS? NO . GASTROENTEROLOGY: ANY NEW CHANGE IN BOWEL CONTROL? NO . GENITOURINARY: ANY NEW CHANGE IN BLADDER CONTROL? NO . IS THERE A CHANCE YOU COULD BE ? NO . HEMATOLOGY/LYMPH: DO YOU TAKE ANY BLOOD THINNERS? (FOR EXAMPLE- COUMADIN, PLAVIX, AGGRENOX, PLATEL, PRADAXA, OR XARELTO) NO . WHEN WAS YOUR LAST DOSE? DATE: TIME: . NEUROLOGY: HAVE YOU FALLEN IN THE PAST 6 MONTHS? YES . ANY NEW EXTREMITY NUMBNESS OR WEAKNESS? NO . CARDIOLOGY: DO YOU HAVE A PACEMAKER OR DEFIBRILLATOR? NO . RESPIRATORY: HAVE YOU BEEN SICK IN THE PAST WEEK? NO . FEVER NO . FLU LIKE SYMPTOMS? NO . COUGH NO . INTEGUMENTARY: DO YOU HAVE ANY RASHES OR OPEN SORES? NO . ALLERGIC/IMMUNO: ARE YOU ALLERGIC TO SHELLFISH OR IV DYE? NO . ANY NEW ALLERGIES? NO . PSYCHIATRIC: DO YOU HAVE THOUGHTS OF HURTING YOURSELF OR SOMEONE ELSE? NO . ARE YOU ABUSED, NEGLECTED, OR IN AN UNSAFE ENVIRONMENT? NO . ENDOCRINOLOGY: ARE YOU DIABETIC? YES . OTHER: DO YOU NEED ANY PRESCRIPTIONS? NO . IF YES, PLEASE LIST: ____ . ANY NEW PROBLEMS WITH YOUR MEDICATIONS? NO . WHEN DID YOU LAST EAT? ____ . WHEN DID YOU LAST DRINK? ____ . WHAT DID YOU LAST DRINK? ____ . NAME OF PERSON DRIVING YOU HOME? ____ . DO YOU HAVE ANY OTHER QUESTIONS OR CONCERNS YES, SOME IMPROVEMENT WITH CYMBALTA INCREASE. . REVIEWED BY: PROVIDER: ONUR LAFLEUR MD . VITAL SIGNS WT 242.6 LBS, HT 68 IN, BMI 36.88 INDEX, BP 140/80 MANUAL, HR 93 /MIN, RR 18 /MIN, TEMP 99.2 F, OXYGEN SAT % 96%, NA INITIALS AW 1554, REVIEWED BY: CM. EXAMINATION : PATIENT IS ALERT O X 3 AND COOPERATIVE. PATIENT'S RIGHT LEG IS WEAKER AT FLEXION AND EXTENSION COMPARED TO THE LEFT LEG. THERE IS TENDERNESS IN THE LOW BACK PARASPINAL MUSCLE GROUP ESPECIALLY WITH TENDERNESS IN THE FACET JOINTS. CT OF THE LUMBAR SPINE DONE ON 06/25/2012 SHOWS FACET ARTHROPATHY CHANGES AND DISC BULGES AT MULTIPLE LEVELS. 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 AYERS'S PAIN MANAGEMENT CASE. AT THIS TIME THE PATIENT WILL REDUCE CYCLOBENZAPRINE SLOWLY UNTIL HE IS OUT, ADVISED PATIENT NOT TO STOP IT COMPLETELY. I WILL HAVE THE PATIENT START ON GABAPENTIN AND TIZANIDINE AND TO TAKE THESE MEDICATIONS AT NIGHT. PATIENT DID NOT BRING HIS MEDICATIONS TODAY, AND WAS ADVISED TO BRING THEM FOR EVERY FOLLOW UP. UTOX SHOWS CONSISTENT RESULTS. AFTER REVIEWING THE CT AND EXAMINING THE PATIENT HE IS A GOOD CANDIDATE FOR A RIGHT LFBT AT L4-S1. WE DISCUSSED THE RISK, BENEFITS, AND ALTERNATIVES AND THE PATIENT WOULD LIKE TO PROCEED. PATIENT WILL BE BOOKED PENDING APPROVAL. I DISCUSSED WITH THE PATIENT I WILL LOOK INTO THE KNEE BRACE REPLACEMENT FOR HIM. INSTRUCTIONS WERE GIVEN, QUESTIONS WERE ANSWERED, PATIENT REPORTS UNDERSTANDING AND AGREES WITH THE PLAN. I, JOSE MANUEL MORRIS, DOCUMENTED THE ABOVE INFORMATION ACTING A SCRIBE FOR DR. LAFLEUR. I HAVE REVIEWED THE ABOVE DOCUMENT, WRITTEN BY JOSE MANUEL MORRIS SCRIBE AND I VERIFY THAT IT IS ACCURATE. OTHERS START GABAPENTIN CAPSULE, 300 MG, 1 CAPSULE, ORALLY FOR PAIN, THREE TIMES A DAY, 30 DAY(S), 90, REFILLS 1 START TIZANIDINE HCL TABLET, 2 MG, 1 TABLET NEEDED, ORALLY FOR SPASMS AND PAIN, BEFORE BEDTIME MAY REPEAT IN 4 HRS MDD2, 30 DAY(S), 50, REFILLS 2 PROCEDURES PN WORKMANS' COMP OPINION IN YOUR OPINION, WAS THE INCIDENT THAT THE PATIENT DESCRIBED THE COMPETENT MEDICAL CAUSE OF THIS INJURY/ILLNESS? YES ARE THE PATIENT'S COMPLAINTS CONSISTENT WITH HIS/HER HISTORY OF THE INJURY/ILLNESS? YES IS THE PATIENT'S HISTORY OF THE INJURY/ILLNESS CONSISTENT WITH YOUR OBJECTIVE FINDING? YES WHAT IS THE PERCENTAGE OF TEMPORARY IMPAIRMENT? MODERATE TO MARKED = 66.7% IS THE PATIENT WORKING? NO DOCTOR ON SITE: ONUR BIRMINGHAM MD PREVENTIVE MEDICINE PAIN CLINIC TEACHING: MEDICATIONS TIZANIDINE AND GABAPENTIN INSTRUCTIONS REVIEWED WITH PT. VERBALIZED UNDERSTANDNG.. PROCEDURE TEACHING LUMBAR FACET BLOCK PRE-PROCEDURE INSTRUCTIONS REVIEWED WITH PT. VERBALIZED UNDERSTANDING.. PROCEDURE CODES FA211 ESTABILISHED PATIENT [facility] FACILITY CHARGE [id number] PAIN ASSESS POS TOOL F/U PLAN DOC G8427 DOC MEDS VERIFIED W/PT OR RE DISPOSITION & COMMUNICATION FOLLOW UP LFBT PENDING APPROVAL ELECTRONICALLY SIGNED BY ONUR LAFLEUR MD ON 08/22/2016 AT 08:32 PM EDT DISCLAIMER : THIS IS A VISIT SUMMARY EXTRACTED FROM THE [employer] CHART. IT IS NOT A COPY OF THE [employer] PROGRESS NOTE. REGULO
== END ==
LOC: M PAIN 15:45
PROVIDERS: ATTEND Anesthesiology
DX: M96.1 Postlaminectomy syndrome, not elsewhere classified (principal); M47.816 Spondylosis without myelopathy or radiculopathy, lumbar region; M47.817 Spondylosis without myelopathy or radiculopathy, lumbosacral region; E11.9 Type 2 diabetes mellitus without complications; I10 Essential (primary) hypertension; Z88.0 Allergy status to penicillin; Z88.2 Allergy status to sulfonamides; Z79.891 Long term (current) use of opiate analgesic; Z79.82 Long term (current) use of aspirin; Z79.4 Long term (current) use of insulin; Z79.899 Other long term (current) drug therapy

== ENCOUNTER → 2016-09-29 | Outpatient (CLI) | payer OTHER ==
--- NOTE | 2016-10-10 00:23 | ECWPNPC ---
PATIENT NAME: CASH AYERS : 1955 GENDER: MALE VISIT DATE: 09/29/2016 DISCHARGE DATE: 09/29/16 1507 VISIT LOCKED DATE TIME: PHYSICIAN: ONUR LAFLEUR RESOURCE: ONUR LAFLEUR REASON FOR APPOINTMENT 1. W/C BACK HISTORY OF PRESENT ILLNESS HISTORY OF PRESENT ILLNESS: PAIN THE PATIENT DESCRIBES THE PAIN... 61 YEAR OLD MALE PATIENT WITH HISTORY OF CHRONIC BACK AND LEG PAIN. PATIENT DESCRIBES THE PAIN ACHING, BURNING, SHARP, STABBING, TENDER, THROBBING, SORE, SHOOTING, AND HAVING IT ALL THE TIME WITH A PAIN SCORE OF 9/10 ON TODAY'S VISIT. 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 PATIENT REPORTS OF HAVING BACK SURGERY IN 2004 AND 1996. PATIENT REPORTS THAT HE HAD A DCS PUT IN 3 YEARS AGO IN NOVEMBER. PATIENT REPORTS OF HAVING TRIED PHYSICAL THERAPY IN THE PAST HE WOULD SEE AND FEEL IMPROVEMENTS IN HIS PAIN AND RANGE OF MOTION THEN COMP WOULD STOP PAYING FOR IT. PATIENT REPORTS OF RADIATING PAIN DOWN BOTH LEGS FROM THE BACK WITH THE RIGHT LEG HURTING THE MOST ALONG WITH THE RIGHT LOW BACK TODAY. PATIENT REPORTS THAT [employer] FROM [employer] DID THE ADJUSTMENTS ON HIS DCS AND IT IS WORKING BETTER THAN IT DID BEFORE, BUT THE PAIN IS STILL THERE. PATIENT REPORTS THAT HE RECEIVED A LETTER IN THE MAIL THAT INDICATES THAT WORKER COMP APPROVED THE REQUESTED PROCEDURE. PATIENT REPORTS THAT HE NOW HAS HIS NEW KNEE BRACE AND IT IS HELPING HIM A LOT. PATIENT DENIES UNEXPLAINABLE WEIGHT LOSS, FEVER, CHILLS, NEW CHANGES ON HIS URINARY OR BOWEL CONTROL. FALL RISK SCREENING: SCREENING :NO FALLS IN THE PAST YEAR CURRENT MEDICATIONS TAKING CYMBALTA 60 MG CAPSULE DELAYED RELEASE PARTICLES 1 CAPSULE ORALLY WITH FOOD TWICE A DAY FOR PAIN MDD2, NOTES: 06/29/16 2100 TAKING OXYCODONE-ACETAMINOPHEN 7.5-325 MG TABLET 1-2 ORALLY TID PRN MDD 6, NOTES: 06/29/16 2100 TAKING CYCLOBENZAPRINE HCL 10 MG TABLET 1 TABLET ORALLY FOR SPASMS THREE TIMES A DAY NEEDED, NOTES: 06/29/162099 TAKING ASPIR-81 81 MG TABLET DELAYED RELEASE 1 TABLET ORALLY DAILY, NOTES: 06/30/16729 TAKING COREG 12.5 MG TABLET ORALLY BID, NOTES: 06/30/16729 TAKING CHOLECALCIFEROL 5000 UNIT CAPSULE ORALLY DAILY, NOTES: 06/30/16729 TAKING CINNAMON 500 MG CAPSULE ORALLY BID, NOTES: 06/30/1606/17/729 TAKING FUROSEMIDE 20 MG TABLET 1 TABLET ORALLY BID, NOTES: 06/30/16729 TAKING INSULIN NPH (HUMAN) (ISOPHANE) 100 UNIT/ML SUSPENSION SUBCUTANEOUS 70U AM 70U PM, NOTES: 06/29/16 230 TAKING NOVOLOG FLEXPEN 100 UNIT/ML SOLUTION SUBCUTANEOUS SLIDING SCALE WITH MEALS NOT-TAKING GABAPENTIN 300 MG CAPSULE 1 CAPSULE ORALLY FOR PAIN THREE TIMES A DAY NOT-TAKING TIZANIDINE HCL 2 MG TABLET 1 TABLET NEEDED ORALLY FOR SPASMS AND PAIN BEFORE BEDTIME MAY REPEAT IN 4 HRS MDD2 NOT-TAKING COLACE 100 MG CAPSULE 1 CAPSULE NEEDED ORALLY ONCE A DAY MEDICATION LIST REVIEWED AND RECONCILED WITH THE PATIENT PAST MEDICAL HISTORY IDDM HTN CHRONIC LOW BACK PAIN DIABETIC NEUROPATHY ALLERGIES FENTANYL: NAUSEA AND VOMITING: ALLERGY SULFA (FOR ALLERGY USE ONLY): HIVES: ALLERGY ALEX INHIBITOR (FOR ALLERGIES USE ONLY): THROAT CLOSES: ALLERGY PREGABALIN: EDEMA SOB: ALLERGY BUPRENORPHINE: UPSET STOMACH: ALLERGY CELEBREX: SKIN BLISTERS: ALLERGY SURGICAL HISTORY DOUBLE INGUINAL HERNIA 1984 EYE SURGERY 1960 EYE SURGERY 1985 BILATERAL CATERACATS 2014 BACK SURGERY 1996 BACK SURGERY 2004 DCS 2012 FAMILY HISTORY NO FAMILY HISTORY DOCUMENTED. SOCIAL HISTORY GENERAL: PAIN CLINIC PFS, CLERGY, PUBLIC HEALTH REFERRALS CLERGY REFERRAL NEEDED?NO WAS THE PROVIDER NOTIFIED OF ANY PERTINENT INFO?NO PFS REFERRAL NEEDED?NO PUBLIC HEALTH REFERRAL NEEDED?NO PATIENT: ____. HOSPITALIZATION/MAJOR DIAGNOSTIC PROCEDURE NO HOSPITALIZATION HISTORY. REVIEW OF SYSTEMS CONSTITUTIONAL: ANY CHANGE IN YOUR MEDICAL CONDITION? NO . CHILLS NO . FEVER NO . INFECTION: DO YOU HAVE NEW INFECTIONS? NO . DO YOU HAVE HISTORY OF MRSA? NO . MUSCULOSKELETAL: ANY NEW PATTERNS OF PAIN OR NUMBNESS? NO . GASTROENTEROLOGY: ANY NEW CHANGE IN BOWEL CONTROL? NO . GENITOURINARY: ANY NEW CHANGE IN BLADDER CONTROL? NO . IS THERE A CHANCE YOU COULD BE ? NO . HEMATOLOGY/LYMPH: DO YOU TAKE ANY BLOOD THINNERS? (FOR EXAMPLE- COUMADIN, PLAVIX, AGGRENOX, PLATEL, PRADAXA, OR XARELTO) NO . WHEN WAS YOUR LAST DOSE? DATE: TIME: . NEUROLOGY: HAVE YOU FALLEN IN THE PAST 6 MONTHS? NO . ANY NEW EXTREMITY NUMBNESS OR WEAKNESS? NO . CARDIOLOGY: DO YOU HAVE A PACEMAKER OR DEFIBRILLATOR? NO . RESPIRATORY: HAVE YOU BEEN SICK IN THE PAST WEEK? NO . FEVER NO . FLU LIKE SYMPTOMS? NO . COUGH NO . INTEGUMENTARY: DO YOU HAVE ANY RASHES OR OPEN SORES? NO . ALLERGIC/IMMUNO: ARE YOU ALLERGIC TO SHELLFISH OR IV DYE? NO . ANY NEW ALLERGIES? NO . PSYCHIATRIC: DO YOU HAVE THOUGHTS OF HURTING YOURSELF OR SOMEONE ELSE? NO . ARE YOU ABUSED, NEGLECTED, OR IN AN UNSAFE ENVIRONMENT? NO . ENDOCRINOLOGY: ARE YOU DIABETIC? NO . OTHER: DO YOU NEED ANY PRESCRIPTIONS? YES . IF YES, PLEASE LIST: ____OXYCODONE . ANY NEW PROBLEMS WITH YOUR MEDICATIONS? YES GABAPENTIN AND TIZANIDINE BOTH CAUSED INCREASE IN BLOOD SUGAR . WHEN DID YOU LAST EAT? ____ . WHEN DID YOU LAST DRINK? ____ . WHAT DID YOU LAST DRINK? ____ . NAME OF PERSON DRIVING YOU HOME? ____ . DO YOU HAVE ANY OTHER QUESTIONS OR CONCERNS NO . REVIEWED BY: PROVIDER: ONUR LAFLEUR MD . VITAL SIGNS WT 249.2 LBS, HT 68 IN, BMI 37.89 INDEX, BP 160/103 MM HG, HR 83 /MIN, RR 18 /MIN, TEMP 99.1 F, OXYGEN SAT % 96%, SAFE IN ENV? (Y/N) YES, NA INITIALS SC 13:44, REVIEWED BY: CHYNA IS AWARE OF PT BP. EXAMINATION : PATIENT IS ALERT O X 3 AND COOPERATIVE. PATIENT'S RIGHT LEG IS WEAKER AT FLEXION AND EXTENSION COMPARED TO THE LEFT LEG. THERE IS TENDERNESS IN THE LOW BACK PARASPINAL MUSCLE GROUP ESPECIALLY WITH TENDERNESS IN THE FACET JOINTS. CT OF THE LUMBAR SPINE DONE ON 06/25/2012 SHOWS FACET ARTHROPATHY CHANGES AND DISC BULGES AT MULTIPLE LEVELS. 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 AYERS'S PAIN MANAGEMENT CASE. AT THIS TIME THE PATIENT WILL RECEIVE A REFILL OF CYMBALTA AND OXYCODONE. PATIENT IS TAKING CYMBALTA FOR NEUROPATHIC PAIN AND OXYCODONE FOR SOMATIC PAIN. I WILL HAVE THE PATIENT START ON METHOCARBAMOL FOR THE SPASTICITY. UTOX ORDERED ON 05/27/2016 SHOWS CONSISTENT RESULTS WITH WHAT IS PRESCRIBED. AFTER REVIEWING THE CT AND EXAMINING THE PATIENT HE IS A GOOD CANDIDATE FOR A RIGHT LFBT AT L4-S1. WE DISCUSSED THE RISK, BENEFITS, AND ALTERNATIVES AND THE PATIENT WOULD LIKE TO PROCEED. PATIENT WILL BE BOOKED. OTHERS START METHOCARBAMOL TABLET, 750 MG, 1 TABLET, ORALLY, EVERY 8 HRS PRN FOR SPASMS AND PAIN MDD3, 30 DAY(S), 60, REFILLS 2 PROCEDURES PN WORKMANS' COMP OPINION IN YOUR OPINION, WAS THE INCIDENT THAT THE PATIENT DESCRIBED THE COMPETENT MEDICAL CAUSE OF THIS INJURY/ILLNESS? YES ARE THE PATIENT'S COMPLAINTS CONSISTENT WITH HIS/HER HISTORY OF THE INJURY/ILLNESS? YES IS THE PATIENT'S HISTORY OF THE INJURY/ILLNESS CONSISTENT WITH YOUR OBJECTIVE FINDING? YES WHAT IS THE PERCENTAGE OF TEMPORARY IMPAIRMENT? MODERATE TO MARKED = 66.7% IS THE PATIENT WORKING? NO DOCTOR ON SITE: ONUR BIRMINGHAM MD PROCEDURE CODES FA211 ESTABILISHED PATIENT [facility] FACILITY CHARGE G8730 PAIN ASSESS POS TOOL F/U PLAN DOC G8427 DOC MEDS VERIFIED W/PT OR RE DISPOSITION & COMMUNICATION FOLLOW UP 7 WEEKS ELECTRONICALLY SIGNED BY ONUR LAFLEUR MD ON 10/09/2016 AT 07:01 PM EDT DISCLAIMER : THIS IS A VISIT SUMMARY EXTRACTED FROM THE [employer] CHART. IT IS NOT A COPY OF THE [employer] PROGRESS NOTE. MTDD
== END ==
LOC: M PAIN 13:20
PROVIDERS: ATTEND Anesthesiology
DX: M96.1 Postlaminectomy syndrome, not elsewhere classified (principal); M47.816 Spondylosis without myelopathy or radiculopathy, lumbar region; M47.817 Spondylosis without myelopathy or radiculopathy, lumbosacral region; E11.40 Type 2 diabetes mellitus with diabetic neuropathy, unspecified; I10 Essential (primary) hypertension; Z88.5 Allergy status to narcotic agent; Z88.2 Allergy status to sulfonamides; Z88.8 Allergy status to other drugs, medicaments and biological substances; Z79.891 Long term (current) use of opiate analgesic; Z79.82 Long term (current) use of aspirin; Z79.899 Other long term (current) drug therapy; Z79.4 Long term (current) use of insulin

== ENCOUNTER → 2016-10-07 | Outpatient (CLI) | payer OTHER ==
[~2016-10-07] MED LIST changes: +BUPIVACAINE HCL 0.25% 30 ML VIAL As Ordered ONE; +ISOVUE-M 300 61% 15ML VIAL (Q9967) As Ordered ONE; +LIDOCAINE 1% SDV INJ 30 ML VIAL As Ordered ONE; +TRIAMCINOLONE ACETONIDE SUSP 40 MG/ML VIAL (J3301) As Ordered ONE
--- NOTE | 2016-10-07 11:14 | REP ---
Partial lumbar spine series: Single view. History: Facet block for pain. 23 seconds of fluoroscopy time is reported. Findings: A fluoroscopically obtained last image hold spot radiograph of the lumbar spine documents needle position for facet injection procedure. Signed by oTdd Barrios MD 10/07/2016 01:19 P
--- NOTE | 2016-10-16 23:31 | ECWPNPC ---
PATIENT NAME: CASH AYERS : 1955 GENDER: MALE VISIT DATE: 10/07/2016 DISCHARGE DATE: 10/07/16 1012 VISIT LOCKED DATE TIME: PHYSICIAN: ONUR LAFLEUR RESOURCE: ONUR LAFLEUR REASON FOR APPOINTMENT 1. RIGHT L4-L5 AND L5-S1 LFBT APPROVED HISTORY OF PRESENT ILLNESS HISTORY OF PRESENT ILLNESS: PAIN THE PATIENT DESCRIBES THE PAIN... FALL RISK SCREENING: SCREENING :NO FALLS IN THE PAST YEAR CURRENT MEDICATIONS TAKING CYMBALTA 60 MG CAPSULE DELAYED RELEASE PARTICLES 1 CAPSULE ORALLY WITH FOOD TWICE A DAY FOR PAIN MDD2, NOTES: 10-07-16599 TAKING OXYCODONE-ACETAMINOPHEN 7.5-325 MG TABLET 1-2 ORALLY TID PRN MDD 6, NOTES: 10-06-16 TAKING METHOCARBAMOL 750 MG TABLET 1 TABLET ORALLY EVERY 8 HRS PRN FOR SPASMS AND PAIN MDD3, NOTES: NOT TAKING YET TAKING ASPIR-81 81 MG TABLET DELAYED RELEASE 1 TABLET ORALLY DAILY, NOTES: 10-07-16599 TAKING COREG 12.5 MG TABLET ORALLY BID, NOTES: 599 TAKING CHOLECALCIFEROL 5000 UNIT CAPSULE ORALLY DAILY, NOTES: 10-06-162099 TAKING CINNAMON 500 MG CAPSULE ORALLY BID, NOTES: 10-07-16899 TAKING FUROSEMIDE 20 MG TABLET 1 TABLET ORALLY BID, NOTES: 10-07-16 TAKING INSULIN NPH (HUMAN) (ISOPHANE) 100 UNIT/ML SUSPENSION SUBCUTANEOUS 70U AM 70U PM, NOTES: 10-06-16 0730 TAKING NOVOLOG FLEXPEN 100 UNIT/ML SOLUTION SUBCUTANEOUS SLIDING SCALE WITH MEALS NOT-TAKING CYCLOBENZAPRINE HCL 10 MG TABLET 1 TABLET ORALLY FOR SPASMS THREE TIMES A DAY NEEDED NOT-TAKING GABAPENTIN 300 MG CAPSULE 1 CAPSULE ORALLY FOR PAIN THREE TIMES A DAY NOT-TAKING TIZANIDINE HCL 2 MG TABLET 1 TABLET NEEDED ORALLY FOR SPASMS AND PAIN BEFORE BEDTIME MAY REPEAT IN 4 HRS MDD2 NOT-TAKING COLACE 100 MG CAPSULE 1 CAPSULE NEEDED ORALLY ONCE A DAY MEDICATION LIST REVIEWED AND RECONCILED WITH THE PATIENT PAST MEDICAL HISTORY IDDM HTN CHRONIC LOW BACK PAIN DIABETIC NEUROPATHY ALLERGIES FENTANYL: NAUSEA AND VOMITING: ALLERGY SULFA (FOR ALLERGY USE ONLY): HIVES: ALLERGY ALEX INHIBITOR (FOR ALLERGIES USE ONLY): THROAT CLOSES: ALLERGY PREGABALIN: EDEMA SOB: ALLERGY BUPRENORPHINE: UPSET STOMACH: ALLERGY CELEBREX: SKIN BLISTERS: ALLERGY REVIEW OF SYSTEMS CONSTITUTIONAL: ANY CHANGE IN YOUR MEDICAL CONDITION? NO . CHILLS NO . FEVER NO . INFECTION: DO YOU HAVE NEW INFECTIONS? NO . DO YOU HAVE HISTORY OF MRSA? NO . MUSCULOSKELETAL: ANY NEW PATTERNS OF PAIN OR NUMBNESS? NO . GASTROENTEROLOGY: ANY NEW CHANGE IN BOWEL CONTROL? NO . GENITOURINARY: ANY NEW CHANGE IN BLADDER CONTROL? NO . IS THERE A CHANCE YOU COULD BE ? NO . HEMATOLOGY/LYMPH: DO YOU TAKE ANY BLOOD THINNERS? (FOR EXAMPLE- COUMADIN, PLAVIX, AGGRENOX, PLATEL, PRADAXA, OR XARELTO) NO . WHEN WAS YOUR LAST DOSE? DATE: TIME: . NEUROLOGY: HAVE YOU FALLEN IN THE PAST 6 MONTHS? YES 130 IN THE AM .FELL INBATHROOM..DOES NOT RECAL MUCH . ANY NEW EXTREMITY NUMBNESS OR WEAKNESS? NO . CARDIOLOGY: DO YOU HAVE A PACEMAKER OR DEFIBRILLATOR? NO . RESPIRATORY: HAVE YOU BEEN SICK IN THE PAST WEEK? NO . FEVER NO . FLU LIKE SYMPTOMS? NO . COUGH NO . INTEGUMENTARY: DO YOU HAVE ANY RASHES OR OPEN SORES? NO . ALLERGIC/IMMUNO: ARE YOU ALLERGIC TO SHELLFISH OR IV DYE? NO . ANY NEW ALLERGIES? NO . PSYCHIATRIC: DO YOU HAVE THOUGHTS OF HURTING YOURSELF OR SOMEONE ELSE? NO . ARE YOU ABUSED, NEGLECTED, OR IN AN UNSAFE ENVIRONMENT? NO . ENDOCRINOLOGY: ARE YOU DIABETIC? NO . OTHER: DO YOU NEED ANY PRESCRIPTIONS? NO . IF YES, PLEASE LIST: ____ . ANY NEW PROBLEMS WITH YOUR MEDICATIONS? NO . WHEN DID YOU LAST EAT? ____20-30 N7 . WHEN DID YOU LAST DRINK? ____[place] [place] . WHAT DID YOU LAST DRINK? ____ . NAME OF PERSON DRIVING YOU HOME? ____ . DO YOU HAVE ANY OTHER QUESTIONS OR CONCERNS NO . REVIEWED BY: PROVIDER: . VITAL SIGNS WT 249.2 LBS, HT 68 IN, BMI 37.89 INDEX, BP 166/84 MANUAL, HR 84 /MIN, RR 16 /MIN, TEMP 97.8 F, OXYGEN SAT % 96%, NA INITIALS TL 0857. ASSESSMENTS SPONDYLOSIS WITHOUT MYELOPATHY OR RADICULOPATHY, LUMBOSACRAL REGION - M47.817 (PRIMARY) PROCEDURES PN LUMBAR FACET BLOCK THERAPEUTIC PRE PROCEDURE DIAGNOSIS LUMBOSACRAL SPONDYLOSIS POST PROCEDURE DIAGNOSIS LUMBOSACRAL SPONDYLOSIS PROCEDURE RIGHT L5-S1 LUMBAR FACET THERAPEUTIC BLOCK SURGEON DR. ONUR LAFLEUR EMBEDDED SOFTWARE DEVELOPMENT ENGINEER NONE ANESTHESIA LOCAL PRE PROCEDURE NOTE THE PATIENT HAS A HISTORY OF CHRONIC LOW BACK PAIN. I EVALUATE THE PATIENT AND REVIEWED THE CHART. I WENT OVER THE RISKS, ALTERNATIVES, AND BENEFITS ASSOCIATED WITH THIS PROCEDURE. THE PATIENT WOULD LIKE TO PROCEED AND GIVE CONSENT TO PERFORMED THE PROCEDURE. THE PATIENT DENIES UNEXPLAINABLE WEIGHT LOSS, FEVER, CHILLS, OR NEW CHANGES IN URINARY OR BOWEL CONTROL DESCRIPTION OF PROCEDURE THE PATIENT WAS BROUGHT TO THE PROCEDURE ROOM AND PLACED IN THE PRONE POSITION. THE LUMBOSACRAL AREA WAS CLEANED WITH CHLORAPREP SOLUTION AND DRAPED ASEPTICALLY. THE PROCEDURE WAS DONE UNDER STERILE CONDITIONS. I CHECKED LATERALITY AND THE LEVEL WHERE THE PROCEDURE WAS GOING TO BE PERFORMED WITH THE PATIENT AND THE SUPPORTING STAFF AT THE MOMENT OF THE TIME OUT IN THE PROCEDURE ROOM. UNDER FLUOROSCOPIC GUIDANCE, THE TARGET POINT WAS SELECTED AT THE RIGHT L5-S1 FACET JOINT. TARGET POINT WAS SELECTED AFTER LATERAL ROTATION AND TILT OF THE MAGNIFIER OF THE C-ARM. LIDOCAINE 0.5% WAS USED TO NUMB THE SKIN AND THE SUBCUTANEOUS TISSUE BELOW IT. SPINAL NEEDLES, 22-GAUGE, WERE ADVANCED UNDER FLUOROSCOPIC GUIDANCE AND FOLLOWING PATIENT FEEDBACK UNTIL THE TARGETS WERE TOUCHED. THE POSITION OF THE NEEDLES WAS VERIFIED WITH AP AND LATERAL VIEWS. AFTER PROPER POSITION OF THE NEEDLES WAS ACHIEVED, ISOVUE-M DYE 30% 0.1 ML WAS INJECTED SHOWING ADEQUATE SPREAD OF THE DYE. THEN A SOLUTION OF 1.9 ML OF BUPIVACAINE 0.125% OF KENALOG 10 MG WAS INJECTED AT EACH SITE. THERE WAS NO EVIDENCE OF BLOOD, PARESTHESIA OR CEREBROSPINAL FLUID DURING THE PROCEDURE. THE PATIENT WAS SENT TO THE RECOVERY ROOM. THE PATIENT WAS MOVING THE EXTREMITIES AND DOING WELL. THERE WAS NO COMPLICATION DURING THE PROCEDURE. FLUOROSCOPY TIME WAS 9 SECONDS POST PROCEDURE NOTE THE PATIENT WILL BE SEEN IN A FOLLOW UP IN THE NEXT FEW WEEKS. INSTRUCTIONS WERE GIVEN, QUESTIONS WERE ANSWERED, AND THE PATIENT EXPRESSED UNDERSTANDING AND AGREES WITH THE PLAN. I, JOSE MANUEL MORRIS, DOCUMENTED THE ABOVE INFORMATION ACTING A SCRIBE FOR DR. LAFLEUR. I HAVE REVIEWED THE ABOVE DOCUMENT, WRITTEN BY JOSE MANUEL MORRIS SCRIBNorman AND I VERIFY THAT IT IS ACCURATE PN WORKMANS' COMP OPINION IN YOUR OPINION, WAS THE INCIDENT THAT THE PATIENT DESCRIBED THE COMPETENT MEDICAL CAUSE OF THIS INJURY/ILLNESS? YES ARE THE PATIENT'S COMPLAINTS CONSISTENT WITH HIS/HER HISTORY OF THE INJURY/ILLNESS? YES IS THE PATIENT'S HISTORY OF THE INJURY/ILLNESS CONSISTENT WITH YOUR OBJECTIVE FINDING? YES WHAT IS THE PERCENTAGE OF TEMPORARY IMPAIRMENT? MODERATE TO MARKED = 66.7% IS THE PATIENT WORKING? NO DOCTOR ON SITE: ONUR BIRMINGHAM MD DIAGNOSTIC IMAGING [facility] FACET BLOCK (PAIN)[id number] PROCEDURE CODES 67991 INJ PARAVERT F JNT L/S 1 LEV 6045F RADXPS IN END [id number] PXD DISPOSITION & COMMUNICATION FOLLOW UP 3 WEEKS ELECTRONICALLY SIGNED BY ONUR LAFLEUR MD ON 10/16/2016 AT 03:16 PM EDT DISCLAIMER : THIS IS A VISIT SUMMARY EXTRACTED FROM THE [employer] CHART. IT IS NOT A COPY OF THE [employer] PROGRESS NOTE. REGULO
== END ==
LOC: M PAIN 08:40
PROVIDERS: ATTEND Anesthesiology
DX: G89.29 Other chronic pain (principal); M47.817 Spondylosis without myelopathy or radiculopathy, lumbosacral region; E11.40 Type 2 diabetes mellitus with diabetic neuropathy, unspecified; I10 Essential (primary) hypertension; Z88.5 Allergy status to narcotic agent; Z88.2 Allergy status to sulfonamides; Z88.8 Allergy status to other drugs, medicaments and biological substances; Z79.4 Long term (current) use of insulin; Z79.891 Long term (current) use of opiate analgesic; Z79.82 Long term (current) use of aspirin; Z79.899 Other long term (current) drug therapy
CPT/HCPCS: 64493; J3301; Q9967

== ENCOUNTER → 2016-10-21 | Outpatient (CLI) | payer OTHER ==
[~2016-10-21] MED LIST changes: -BUPIVACAINE HCL 0.25% 30 ML VIAL As Ordered ONE; -ISOVUE-M 300 61% 15ML VIAL (Q9967) As Ordered ONE; -LIDOCAINE 1% SDV INJ 30 ML VIAL As Ordered ONE; -TRIAMCINOLONE ACETONIDE SUSP 40 MG/ML VIAL (J3301) As Ordered ONE
--- NOTE | 2016-11-01 23:25 | ECWPNPC ---
PATIENT NAME: CAHS AYERS : 1955 GENDER: MALE VISIT DATE: 10/21/2016 DISCHARGE DATE: 10/21/16 1501 VISIT LOCKED DATE TIME: PHYSICIAN: ONUR LAFLEUR RESOURCE: ONUR LAFLEUR REASON FOR APPOINTMENT 1. LOW BACK PAIN HISTORY OF PRESENT ILLNESS HISTORY OF PRESENT ILLNESS: PAIN THE PATIENT DESCRIBES THE PAIN... 61 YEAR OLD MALE PATIENT WITH HISTORY OF CHRONIC BACK AND LEG PAIN. PATIENT DESCRIBES THE PAIN ACHING, BURNING, SHARP, STABBING, TENDER, THROBBING, SORE, SHOOTING, AND HAVING IT ALL THE TIME WITH A PAIN SCORE OF 9/10 ON TODAY'S VISIT. 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 PATIENT RECEIVED A LUMBAR FACET BLOCK ON 10/07/16 AND STATES IT HELPED REDUCE THE PAIN IN HIS BACK UP TO 50% FOR SEVERAL WEEKS BUT THE PAIN IS STARTING TO RETURN. PATIENT REPORTS OF HAVING BACK SURGERY IN 2004 AND 1996. PATIENT REPORTS THAT HE HAD A DCS PUT IN 3 YEARS AGO IN NOVEMBER. PATIENT REPORTS OF HAVING TRIED PHYSICAL THERAPY IN THE PAST HE WOULD SEE AND FEEL IMPROVEMENTS IN HIS PAIN AND RANGE OF MOTION THEN COMP WOULD STOP PAYING FOR IT. PATIENT REPORTS OF RADIATING PAIN DOWN BOTH LEGS FROM THE BACK WITH THE RIGHT LEG HURTING THE MOST ALONG WITH THE RIGHT LOW BACK TODAY. PATIENT DENIES UNEXPLAINABLE WEIGHT LOSS, FEVER, CHILLS, NEW CHANGES ON HIS URINARY OR BOWEL CONTROL. FALL RISK SCREENING: SCREENING :NO FALLS IN THE PAST YEAR CURRENT MEDICATIONS TAKING CYMBALTA 60 MG CAPSULE DELAYED RELEASE PARTICLES 1 CAPSULE ORALLY WITH FOOD TWICE A DAY FOR PAIN MDD2 TAKING OXYCODONE-ACETAMINOPHEN 7.5-325 MG TABLET 1-2 ORALLY TID PRN MDD 6 TAKING METHOCARBAMOL 750 MG TABLET 1 TABLET ORALLY EVERY 8 HRS PRN FOR SPASMS AND PAIN MDD3 TAKING ASPIR-81 81 MG TABLET DELAYED RELEASE 1 TABLET ORALLY DAILY TAKING COREG 12.5 MG TABLET ORALLY BID TAKING CHOLECALCIFEROL 5000 UNIT CAPSULE ORALLY DAILY TAKING CINNAMON 500 MG CAPSULE ORALLY BID TAKING FUROSEMIDE 20 MG TABLET 1 TABLET ORALLY BID TAKING INSULIN NPH (HUMAN) (ISOPHANE) 100 UNIT/ML SUSPENSION SUBCUTANEOUS 70U AM 70U PM TAKING NOVOLOG FLEXPEN 100 UNIT/ML SOLUTION SUBCUTANEOUS SLIDING SCALE WITH MEALS NOT-TAKING CYCLOBENZAPRINE HCL 10 MG TABLET 1 TABLET ORALLY FOR SPASMS THREE TIMES A DAY NEEDED NOT-TAKING GABAPENTIN 300 MG CAPSULE 1 CAPSULE ORALLY FOR PAIN THREE TIMES A DAY NOT-TAKING TIZANIDINE HCL 2 MG TABLET 1 TABLET NEEDED ORALLY FOR SPASMS AND PAIN BEFORE BEDTIME MAY REPEAT IN 4 HRS MDD2 NOT-TAKING COLACE 100 MG CAPSULE 1 CAPSULE NEEDED ORALLY ONCE A DAY MEDICATION LIST REVIEWED AND RECONCILED WITH THE PATIENT PAST MEDICAL HISTORY IDDM HTN CHRONIC LOW BACK PAIN DIABETIC NEUROPATHY ALLERGIES FENTANYL: NAUSEA AND VOMITING: ALLERGY SULFA (FOR ALLERGY USE ONLY): HIVES: ALLERGY ALEX INHIBITOR (FOR ALLERGIES USE ONLY): THROAT CLOSES: ALLERGY PREGABALIN: EDEMA SOB: ALLERGY BUPRENORPHINE: UPSET STOMACH: ALLERGY CELEBREX: SKIN BLISTERS: ALLERGY SURGICAL HISTORY DOUBLE INGUINAL HERNIA 1984 EYE SURGERY 1960 EYE SURGERY 1985 BILATERAL CATERACATS 2014 BACK SURGERY 1996 BACK SURGERY 2004 DCS 2012 FAMILY HISTORY NO FAMILY HISTORY DOCUMENTED. SOCIAL HISTORY GENERAL: PAIN CLINIC PFS, CLERGY, PUBLIC HEALTH REFERRALS CLERGY REFERRAL NEEDED?NO WAS THE PROVIDER NOTIFIED OF ANY PERTINENT INFO?NO PFS REFERRAL NEEDED?NO PUBLIC HEALTH REFERRAL NEEDED?NO PATIENT: ____. HOSPITALIZATION/MAJOR DIAGNOSTIC PROCEDURE NO HOSPITALIZATION HISTORY. REVIEW OF SYSTEMS REVIEWED BY: PROVIDER: . CONSTITUTIONAL: ANY CHANGE IN YOUR MEDICAL CONDITION? NO . CHILLS NO . FEVER NO . INFECTION: DO YOU HAVE NEW INFECTIONS? NO . DO YOU HAVE HISTORY OF MRSA? NO . MUSCULOSKELETAL: ANY NEW PATTERNS OF PAIN OR NUMBNESS? NO . GASTROENTEROLOGY: ANY NEW CHANGE IN BOWEL CONTROL? NO . GENITOURINARY: ANY NEW CHANGE IN BLADDER CONTROL? NO . IS THERE A CHANCE YOU COULD BE ? NO . HEMATOLOGY/LYMPH: DO YOU TAKE ANY BLOOD THINNERS? (FOR EXAMPLE- COUMADIN, PLAVIX, AGGRENOX, PLATEL, PRADAXA, OR XARELTO) NO . WHEN WAS YOUR LAST DOSE? DATE: TIME: . NEUROLOGY: HAVE YOU FALLEN IN THE PAST 6 MONTHS? YES, PT STATES HE FALLS ON REGULAR BASIS FROM PAIN AND LOSS OF BALANCE . ANY NEW EXTREMITY NUMBNESS OR WEAKNESS? NO . CARDIOLOGY: DO YOU HAVE A PACEMAKER OR DEFIBRILLATOR? NO . RESPIRATORY: HAVE YOU BEEN SICK IN THE PAST WEEK? NO . FEVER NO . FLU LIKE SYMPTOMS? NO . COUGH NO . INTEGUMENTARY: DO YOU HAVE ANY RASHES OR OPEN SORES? YES, RASH TO ARMS AND LEGS . ALLERGIC/IMMUNO: ARE YOU ALLERGIC TO SHELLFISH OR IV DYE? NO . ANY NEW ALLERGIES? NO . PSYCHIATRIC: DO YOU HAVE THOUGHTS OF HURTING YOURSELF OR SOMEONE ELSE? NO . ARE YOU ABUSED, NEGLECTED, OR IN AN UNSAFE ENVIRONMENT? NO . ENDOCRINOLOGY: ARE YOU DIABETIC? YES . OTHER: DO YOU NEED ANY PRESCRIPTIONS? NO . IF YES, PLEASE LIST: ____ . ANY NEW PROBLEMS WITH YOUR MEDICATIONS? NO . WHEN DID YOU LAST EAT? ____ . WHEN DID YOU LAST DRINK? ____ . WHAT DID YOU LAST DRINK? ____ . NAME OF PERSON DRIVING YOU HOME? ____ . DO YOU HAVE ANY OTHER QUESTIONS OR CONCERNS NO . VITAL SIGNS WT 244.6 LBS, HT 68 IN, BMI 37.19 INDEX, BP 155/88 MM HG, HR 82 /MIN, RR 18 /MIN, TEMP 98.4 F, OXYGEN SAT % 97%, NA INITIALS TR 1334. EXAMINATION : PATIENT IS ALERT O X 3 AND COOPERATIVE. PATIENT'S RIGHT LEG IS WEAKER AT FLEXION AND EXTENSION COMPARED TO THE LEFT LEG. THERE IS TENDERNESS IN THE LOW BACK PARASPINAL MUSCLE GROUP ESPECIALLY WITH TENDERNESS IN THE FACET JOINTS. CT OF THE LUMBAR SPINE DONE ON 06/25/2012 SHOWS FACET ARTHROPATHY CHANGES AND DISC BULGES AT MULTIPLE LEVELS. 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 AYERS'S PAIN MANAGEMENT CASE. AT THIS TIME THE PATIENT WILL RECEIVE A REFILL OF CYMBALTA AND OXYCODONE. PATIENT IS TAKING CYMBALTA FOR NEUROPATHIC PAIN, METHOCARBAMOL FOR THE MUSCLE SPASMS AND OXYCODONE FOR SOMATIC PAIN. PATIENT DENIES ABUSE OF ANY MEDICATION, DENIES USE OF ILLEGAL SUBSTANCES, AND STATES THAT HE IS ONLY USING THE MEDICATION FOR PAIN MANAGEMENT. URINE TOXICOLOGY REPORT DONE ON 05/27/2016 SHOWS CONSISTENT RESULTS WITH THE PATIENT'S MEDICATION LIST. AFTER VIEWING THE PATIENT'S MRI AND DUE TO HIS LEG PAIN I WOULD LIKE TO MOVE FORWARD WITH A TRANSFORAMINAL. WE DISCUSSED THE RISKS, BENENFITS, AND ALTNERATIVES OF THE INJECTION AND THE PATIENT WOULD LIKE TO PROCEED AT THIS TIME. INSTRUCTIONS WERE GIVEN, QUESTIONS WERE ANSWERED, PATIENT REPORTS UNDERSTANDING AND AGREES WITH THE PLAN. I, ADIN ERAZO, DOCUMENTED THE ABOVE INFORMATION ACTING A SCRIBE FOR DR. LAFLEUR. I HAVE REVIEWED THE ABOVE DOCUMENT, WRITTEN BY ADIN ALEMAN AND I VERIFY THAT IT IS ACCURATE. OTHERS REFILL METHOCARBAMOL TABLET, 750 MG, 1 TABLET, ORALLY, EVERY 8 HRS PRN FOR SPASMS AND PAIN MDD3, 30 DAY(S), 60, REFILLS 2 PROCEDURES PN WORKMANS' COMP OPINION IN YOUR OPINION, WAS THE INCIDENT THAT THE PATIENT DESCRIBED THE COMPETENT MEDICAL CAUSE OF THIS INJURY/ILLNESS? YES ARE THE PATIENT'S COMPLAINTS CONSISTENT WITH HIS/HER HISTORY OF THE INJURY/ILLNESS? YES IS THE PATIENT'S HISTORY OF THE INJURY/ILLNESS CONSISTENT WITH YOUR OBJECTIVE FINDING? YES WHAT IS THE PERCENTAGE OF TEMPORARY IMPAIRMENT? MODERATE TO MARKED = 66.7% IS THE PATIENT WORKING? NO DOCTOR ON SITE: ONUR BIRMINGHAM MD PROCEDURE CODES FA211 ESTABILISHED PATIENT [facility] FACILITY CHARGE G8427 DOC MEDS VERIFIED W/PT OR RE G8730 PAIN ASSESS POS TOOL F/U PLAN DOC DISPOSITION & COMMUNICATION FOLLOW UP 3 WEEKS ELECTRONICALLY SIGNED BY ONUR LAFLEUR MD ON 11/01/2016 AT 09:41 PM EDT DISCLAIMER : THIS IS A VISIT SUMMARY EXTRACTED FROM THE [employer] CHART. IT IS NOT A COPY OF THE [employer] PROGRESS NOTE. REGULO
== END ==
LOC: M PAIN 13:20
PROVIDERS: ATTEND Anesthesiology
DX: M96.1 Postlaminectomy syndrome, not elsewhere classified (principal); M47.816 Spondylosis without myelopathy or radiculopathy, lumbar region; M47.817 Spondylosis without myelopathy or radiculopathy, lumbosacral region; G89.29 Other chronic pain; Z79.891 Long term (current) use of opiate analgesic; Z79.899 Other long term (current) drug therapy; Z79.82 Long term (current) use of aspirin; Z79.4 Long term (current) use of insulin; Z88.8 Allergy status to other drugs, medicaments and biological substances; Z88.2 Allergy status to sulfonamides

== ENCOUNTER → 2016-11-17 | Outpatient (CLI) | payer OTHER ==
--- NOTE | 2016-12-01 01:58 | ECWPNPC ---
PATIENT NAME: CASH AYERS : 1955 GENDER: MALE VISIT DATE: 11/17/2016 DISCHARGE DATE: 11/17/16 0948 VISIT LOCKED DATE TIME: PHYSICIAN: ONUR LAFLEUR RESOURCE: ONUR LAFLEUR REASON FOR APPOINTMENT 1. W/C BACK PAIN HISTORY OF PRESENT ILLNESS HISTORY OF PRESENT ILLNESS: PAIN THE PATIENT DESCRIBES THE PAIN... 61 YEAR OLD MALE PATIENT WITH HISTORY OF CHRONIC BACK AND LEG PAIN. PATIENT DESCRIBES THE PAIN ACHING, BURNING, SHARP, STABBING, TENDER, THROBBING, SORE, SHOOTING, AND HAVING IT ALL THE TIME WITH A PAIN SCORE OF 9/10 ON TODAY'S VISIT. 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 PATIENT REPORTS OF HAVING BACK SURGERY IN 2004 AND 1996. PATIENT REPORTS THAT HE HAD A DCS PUT IN 3 YEARS AGO IN NOVEMBER. PATIENT REPORTS OF HAVING TRIED PHYSICAL THERAPY IN THE PAST HE WOULD SEE AND FEEL IMPROVEMENTS IN HIS PAIN AND RANGE OF MOTION THEN COMP WOULD STOP PAYING FOR IT. MR. AYERS REPORTS OF RADIATING PAIN DOWN BOTH LEGS FROM THE BACK WITH THE RIGHT LEG HURTING THE MOST ALONG WITH THE RIGHT LOW BACK TODAY. PATIENT DENIES UNEXPLAINABLE WEIGHT LOSS, FEVER, CHILLS, NEW CHANGES ON HIS URINARY OR BOWEL CONTROL. FALL RISK SCREENING: SCREENING :NO FALLS IN THE PAST YEAR CURRENT MEDICATIONS TAKING ASPIR-81 81 MG TABLET DELAYED RELEASE 1 TABLET ORALLY DAILY TAKING COREG 12.5 MG TABLET ORALLY BID TAKING CHOLECALCIFEROL 5000 UNIT CAPSULE ORALLY DAILY TAKING CINNAMON 500 MG CAPSULE ORALLY BID TAKING INSULIN NPH (HUMAN) (ISOPHANE) 100 UNIT/ML SUSPENSION SUBCUTANEOUS 70U AM 70U PM TAKING NOVOLOG FLEXPEN 100 UNIT/ML SOLUTION SUBCUTANEOUS SLIDING SCALE WITH MEALS TAKING CYMBALTA 60 MG CAPSULE DELAYED RELEASE PARTICLES 1 CAPSULE ORALLY WITH FOOD TWICE A DAY FOR PAIN MDD2 TAKING OXYCODONE-ACETAMINOPHEN 7.5-325 MG TABLET 1-2 ORALLY TID PRN MDD 6 TAKING METHOCARBAMOL 750 MG TABLET 1 TABLET ORALLY EVERY 8 HRS PRN FOR SPASMS AND PAIN MDD3 TAKING HYDROCHLOROTHIAZIDE 25 MG TABLET 1 TABLET ORALLY BID NOT-TAKING CYCLOBENZAPRINE HCL 10 MG TABLET 1 TABLET ORALLY FOR SPASMS THREE TIMES A DAY NEEDED NOT-TAKING GABAPENTIN 300 MG CAPSULE 1 CAPSULE ORALLY FOR PAIN THREE TIMES A DAY NOT-TAKING TIZANIDINE HCL 2 MG TABLET 1 TABLET NEEDED ORALLY FOR SPASMS AND PAIN BEFORE BEDTIME MAY REPEAT IN 4 HRS MDD2 NOT-TAKING COLACE 100 MG CAPSULE 1 CAPSULE NEEDED ORALLY ONCE A DAY DISCONTINUED FUROSEMIDE 20 MG TABLET 1 TABLET ORALLY BID MEDICATION LIST REVIEWED AND RECONCILED WITH THE PATIENT PAST MEDICAL HISTORY IDDM HTN CHRONIC LOW BACK PAIN DIABETIC NEUROPATHY ALLERGIES FENTANYL: NAUSEA AND VOMITING: ALLERGY SULFA (FOR ALLERGY USE ONLY): HIVES: ALLERGY ALEX INHIBITOR (FOR ALLERGIES USE ONLY): THROAT CLOSES: ALLERGY PREGABALIN: EDEMA SOB: ALLERGY BUPRENORPHINE: UPSET STOMACH: ALLERGY CELEBREX: SKIN BLISTERS: ALLERGY SURGICAL HISTORY DOUBLE INGUINAL HERNIA 1984 EYE SURGERY 1960 EYE SURGERY 1985 BILATERAL CATERACATS 2014 BACK SURGERY 1996 BACK SURGERY 2004 DCS 2012 FAMILY HISTORY NO FAMILY HISTORY DOCUMENTED. SOCIAL HISTORY GENERAL: PAIN CLINIC PFS, CLERGY, PUBLIC HEALTH REFERRALS CLERGY REFERRAL NEEDED?NO WAS THE PROVIDER NOTIFIED OF ANY PERTINENT INFO?NO PFS REFERRAL NEEDED?NO PUBLIC HEALTH REFERRAL NEEDED?NO PATIENT: ____. HOSPITALIZATION/MAJOR DIAGNOSTIC PROCEDURE NO HOSPITALIZATION HISTORY. REVIEW OF SYSTEMS REVIEWED BY: PROVIDER: ONUR LAFLEUR MD . CONSTITUTIONAL: ANY CHANGE IN YOUR MEDICAL CONDITION? NO . CHILLS NO . FEVER NO . INFECTION: DO YOU HAVE NEW INFECTIONS? NO . DO YOU HAVE HISTORY OF MRSA? NO . MUSCULOSKELETAL: ANY NEW PATTERNS OF PAIN OR NUMBNESS? NO . GASTROENTEROLOGY: ANY NEW CHANGE IN BOWEL CONTROL? NO . GENITOURINARY: ANY NEW CHANGE IN BLADDER CONTROL? NO . IS THERE A CHANCE YOU COULD BE ? NO . HEMATOLOGY/LYMPH: DO YOU TAKE ANY BLOOD THINNERS? (FOR EXAMPLE- COUMADIN, PLAVIX, AGGRENOX, PLATEL, PRADAXA, OR XARELTO) NO . WHEN WAS YOUR LAST DOSE? DATE: TIME: . NEUROLOGY: HAVE YOU FALLEN IN THE PAST 6 MONTHS? YES, FALLS FREQUENTLY DUE TO LOSING HIS BALANCE . ANY NEW EXTREMITY NUMBNESS OR WEAKNESS? NO . CARDIOLOGY: DO YOU HAVE A PACEMAKER OR DEFIBRILLATOR? NO . RESPIRATORY: HAVE YOU BEEN SICK IN THE PAST WEEK? NO . FEVER NO . FLU LIKE SYMPTOMS? NO . COUGH NO . INTEGUMENTARY: DO YOU HAVE ANY RASHES OR OPEN SORES? YES, HEAT RASH . ALLERGIC/IMMUNO: ARE YOU ALLERGIC TO SHELLFISH OR IV DYE? NO . ANY NEW ALLERGIES? NO . PSYCHIATRIC: DO YOU HAVE THOUGHTS OF HURTING YOURSELF OR SOMEONE ELSE? NO . ARE YOU ABUSED, NEGLECTED, OR IN AN UNSAFE ENVIRONMENT? NO . ENDOCRINOLOGY: ARE YOU DIABETIC? YES . OTHER: DO YOU NEED ANY PRESCRIPTIONS? YES . IF YES, PLEASE LIST: OXYCODONE/ACETOMINOPHINE,CYMBALTA . ANY NEW PROBLEMS WITH YOUR MEDICATIONS? NO . WHEN DID YOU LAST EAT? ____ . WHEN DID YOU LAST DRINK? ____ . WHAT DID YOU LAST DRINK? ____ . NAME OF PERSON DRIVING YOU HOME? ____ . DO YOU HAVE ANY OTHER QUESTIONS OR CONCERNS WANTS TO DISCUSS INJECTIONS . VITAL SIGNS WT 246 LBS, HT 68 IN, BMI 37.40 INDEX, BP 162/94 MM HG, HR 82 /MIN, RR 16 /MIN, TEMP 98.6 F, OXYGEN SAT % 97, REVIEWED BY: AD. EXAMINATION : PATIENT IS ALERT O X 3 AND COOPERATIVE. PATIENT'S RIGHT LEG IS WEAKER AT FLEXION AND EXTENSION COMPARED TO THE LEFT LEG. THERE IS TENDERNESS IN THE LOW BACK PARASPINAL MUSCLE GROUP ESPECIALLY WITH TENDERNESS IN THE FACET JOINTS. CT OF THE LUMBAR SPINE DONE ON 06/25/2012 SHOWS FACET ARTHROPATHY CHANGES AND DISC BULGES AT MULTIPLE LEVELS. ASSESSMENTS POSTLAMINECTOMY SYNDROME, NOT ELSEWHERE CLASSIFIED - M96.1 (PRIMARY) SPONDYLOSIS WITHOUT MYELOPATHY OR RADICULOPATHY, LUMBAR REGION - M47.816 SPONDYLOSIS WITHOUT MYELOPATHY OR RADICULOPATHY, LUMBOSACRAL REGION - M47.817 TREATMENT POSTLAMINECTOMY SYNDROME, NOT ELSEWHERE CLASSIFIED REFILL CYMBALTA CAPSULE DELAYED RELEASE PARTICLES, 60 MG, 1 CAPSULE, ORALLY WITH FOOD, TWICE A DAY FOR PAIN MDD2, 30 DAY(S), 60, REFILLS 2 REFILL OXYCODONE-ACETAMINOPHEN TABLET, 7.5-325 MG, 1-2, ORALLY, TID PRN MDD 6, 30 DAY(S), 180, REFILLS 0 REFILL METHOCARBAMOL TABLET, 750 MG, 1 TABLET, ORALLY, EVERY 8 HRS PRN FOR SPASMS AND PAIN MDD3, 30 DAY(S), 60, REFILLS 2 NOTES: WE DISCUSSED SEVERAL ISSUES WITH MR. AYERS'S PAIN MANAGEMENT CASE. AT THIS TIME THE PATIENT WILL CONTINUE WITH THE SAME MEDICATION REGIME BEFORE. PATIENT USES THE CYMBALTA FOR THE NEUROPATHIC PAIN, OXYCODONE FOR THE SOMATIC PAIN, AND METHOCARBAMOL FOR THE MUSCLE SPASMS. PATIENT DENIES ABUSE OF ANY MEDICATION, DENIES USE OF ILLEGAL SUBSTANCES, AND STATES HE IS ONLY USING THE MEDICATION FOR PAIN MANAGEMENT. URINE TOXICOLOGY REPORT DONE ON 05/23/16 SHOWS CONSISTENT RESULTS WITH THE PATIENTS MEDICATION LIST. EVENTUALLY I WOULD LIKE THE PATIENT TO HAVE AN UPDATED CT OF THE LUMBAR SPINE BUT WE AGREED ON DOING IT AFTER THE INJECTION. PATIENT WOULD LIKE TO MORE FORWARD WITH THE TRANSFORAMINAL DUE TO THE RADICULAR PAIN. WE DISCUSSED THE RISKS, BENENFITS, AND ALTNERATIVES OF THE INJECTION AND THE PATIENT WOULD LIKE TO PROCEED AT THIS TIME. INSTRUCTIONS WERE GIVEN, QUESTIONS WERE ANSWERED, PATIENT REPORTS UNDERSTANDING AND AGREES WITH THE PLAN. I, ADIN ERAZO, DOCUMENTED THE ABOVE INFORMATION ACTING A SCRIBE FOR DR. LAFLEUR. I HAVE REVIEWED THE ABOVE DOCUMENT, WRITTEN BY ADIN ALEMAN AND I VERIFY THAT IT IS ACCURATE. PROCEDURES PN WORKMANS' COMP OPINION IN YOUR OPINION, WAS THE INCIDENT THAT THE PATIENT DESCRIBED THE COMPETENT MEDICAL CAUSE OF THIS INJURY/ILLNESS? YES ARE THE PATIENT'S COMPLAINTS CONSISTENT WITH HIS/HER HISTORY OF THE INJURY/ILLNESS? YES IS THE PATIENT'S HISTORY OF THE INJURY/ILLNESS CONSISTENT WITH YOUR OBJECTIVE FINDING? YES WHAT IS THE PERCENTAGE OF TEMPORARY IMPAIRMENT? MODERATE TO MARKED = 66.7% IS THE PATIENT WORKING? NO DOCTOR ON SITE: [place] [place] MD PROCEDURE CODES FA211 ESTABILISHED PATIENT [facility] FACILITY CHARGE G8427 DOC MEDS VERIFIED W/PT OR RE G8730 PAIN ASSESS POS TOOL F/U PLAN DOC DISPOSITION & COMMUNICATION FOLLOW UP 3 WEEKS ELECTRONICALLY SIGNED BY ONUR LAFLEUR MD ON 11/28/2016 AT 11:30 AM EDT DISCLAIMER : THIS IS A VISIT SUMMARY EXTRACTED FROM THE [employer] CHART. IT IS NOT A COPY OF THE [employer] PROGRESS NOTE. MTDD
== END ==
LOC: M PAIN 08:30
PROVIDERS: ATTEND Anesthesiology
DX: M96.1 Postlaminectomy syndrome, not elsewhere classified (principal); M47.816 Spondylosis without myelopathy or radiculopathy, lumbar region; M47.817 Spondylosis without myelopathy or radiculopathy, lumbosacral region; E11.9 Type 2 diabetes mellitus without complications; I10 Essential (primary) hypertension; R21 Rash and other nonspecific skin eruption; Z88.5 Allergy status to narcotic agent; Z88.2 Allergy status to sulfonamides; Z88.8 Allergy status to other drugs, medicaments and biological substances; Z79.82 Long term (current) use of aspirin; Z79.4 Long term (current) use of insulin; Z79.891 Long term (current) use of opiate analgesic; Z79.899 Other long term (current) drug therapy

== ENCOUNTER → 2016-12-01 | Outpatient (CLI) | payer OTHER ==
[~2016-12-01] MED LIST changes: +BUPIVACAINE HCL 0.25% 30 ML VIAL As Ordered ONE; +ISOVUE-M 300 61% 15ML VIAL (Q9967) As Ordered ONE; +LIDOCAINE 1% SDV INJ 30 ML VIAL As Ordered ONE; +dexameTHASONE 10 MG/1 ML VIAL PRES.FREE (J1100) As Ordered ONE; +diazePAM 5 MG TAB As Ordered ONE; +oxyCODONE 5MG TAB As Ordered ONE
--- NOTE | 2016-12-01 17:56 | REP ---
FLUOROSCOPIC GUIDED SPINAL INJECTION: The films were reviewed with Dr. Mathew. The patient has a history of low back pain. The portable C-ARM was provided in the OR by Dr. Yap for fluoroscopic guidance. 135 intraoperative fluoroscopic spot films were obtained for needle placement verification for right lumbar transforaminal injection. The films are on the PACS system and are available for review. 1 minute and 3 seconds of fluoroscopic time was utilized for this procedure. Reviewed by SCOTT Alston 12/02/2016 03:29 PEdited and Signed by Elfego Mathew MD 12/02/2016 10:09 P
--- NOTE | 2016-12-11 23:33 | ECWPNPC ---
PATIENT NAME: CASH AYERS : 1955 GENDER: MALE VISIT DATE: 12/01/2016 DISCHARGE DATE: 12/01/16 1451 VISIT LOCKED DATE TIME: PHYSICIAN: ONUR LAFLEUR RESOURCE: ONUR LAFLEUR REASON FOR APPOINTMENT 1. TRANSFORAMINAL HISTORY OF PRESENT ILLNESS HISTORY OF PRESENT ILLNESS: PAIN THE PATIENT DESCRIBES THE PAIN... FALL RISK SCREENING: SCREENING :NO FALLS IN THE PAST YEAR CURRENT MEDICATIONS TAKING ASPIR-81 81 MG TABLET DELAYED RELEASE 1 TABLET ORALLY DAILY, NOTES: 12/01/16@829 TAKING COREG 12.5 MG TABLET ORALLY BID, NOTES: 12/01/16 TAKING CHOLECALCIFEROL 5000 UNIT CAPSULE ORALLY DAILY, NOTES: 11/30/16 TAKING CINNAMON 500 MG CAPSULE ORALLY BID, NOTES: 12/01/16 TAKING INSULIN NPH (HUMAN) (ISOPHANE) 100 UNIT/ML SUSPENSION SUBCUTANEOUS 70U AM 70U PM, NOTES: 11/30/16@170 TAKING NOVOLOG FLEXPEN 100 UNIT/ML SOLUTION SUBCUTANEOUS SLIDING SCALE WITH MEALS, NOTES: 11/30/16@1699 TAKING HYDROCHLOROTHIAZIDE 25 MG TABLET 1 TABLET ORALLY BID, NOTES: 12/01/16 TAKING CYMBALTA 60 MG CAPSULE DELAYED RELEASE PARTICLES 1 CAPSULE ORALLY WITH FOOD TWICE A DAY FOR PAIN MDD2, NOTES: 12/01/16 TAKING OXYCODONE-ACETAMINOPHEN 7.5-325 MG TABLET 1-2 ORALLY TID PRN MDD 6, NOTES: 11/30/16@1830 TAKING METHOCARBAMOL 750 MG TABLET 1 TABLET ORALLY EVERY 8 HRS PRN FOR SPASMS AND PAIN MDD3, NOTES: 11/30/16@1729 NOT-TAKING CYCLOBENZAPRINE HCL 10 MG TABLET 1 TABLET ORALLY FOR SPASMS THREE TIMES A DAY NEEDED NOT-TAKING GABAPENTIN 300 MG CAPSULE 1 CAPSULE ORALLY FOR PAIN THREE TIMES A DAY NOT-TAKING TIZANIDINE HCL 2 MG TABLET 1 TABLET NEEDED ORALLY FOR SPASMS AND PAIN BEFORE BEDTIME MAY REPEAT IN 4 HRS MDD2 NOT-TAKING COLACE 100 MG CAPSULE 1 CAPSULE NEEDED ORALLY ONCE A DAY MEDICATION LIST REVIEWED AND RECONCILED WITH THE PATIENT PAST MEDICAL HISTORY IDDM HTN CHRONIC LOW BACK PAIN DIABETIC NEUROPATHY ALLERGIES FENTANYL: NAUSEA AND VOMITING: ALLERGY SULFA (FOR ALLERGY USE ONLY): HIVES: ALLERGY ALEX INHIBITOR (FOR ALLERGIES USE ONLY): THROAT CLOSES: ALLERGY PREGABALIN: EDEMA SOB: ALLERGY BUPRENORPHINE: UPSET STOMACH: ALLERGY CELEBREX: SKIN BLISTERS: ALLERGY REVIEW OF SYSTEMS REVIEWED BY: PROVIDER: . CONSTITUTIONAL: ANY CHANGE IN YOUR MEDICAL CONDITION? NO . CHILLS NO . FEVER NO . INFECTION: DO YOU HAVE NEW INFECTIONS? NO . DO YOU HAVE HISTORY OF MRSA? NO . MUSCULOSKELETAL: ANY NEW PATTERNS OF PAIN OR NUMBNESS? NO . GASTROENTEROLOGY: ANY NEW CHANGE IN BOWEL CONTROL? NO . GENITOURINARY: ANY NEW CHANGE IN BLADDER CONTROL? NO . IS THERE A CHANCE YOU COULD BE ? NO . HEMATOLOGY/LYMPH: DO YOU TAKE ANY BLOOD THINNERS? (FOR EXAMPLE- COUMADIN, PLAVIX, AGGRENOX, PLATEL, PRADAXA, OR XARELTO) NO . WHEN WAS YOUR LAST DOSE? DATE: TIME: . NEUROLOGY: HAVE YOU FALLEN IN THE PAST 6 MONTHS? YES . ANY NEW EXTREMITY NUMBNESS OR WEAKNESS? NO . CARDIOLOGY: DO YOU HAVE A PACEMAKER OR DEFIBRILLATOR? NO . RESPIRATORY: HAVE YOU BEEN SICK IN THE PAST WEEK? NO . FEVER NO . FLU LIKE SYMPTOMS? NO . COUGH NO . INTEGUMENTARY: DO YOU HAVE ANY RASHES OR OPEN SORES? NO . ALLERGIC/IMMUNO: ARE YOU ALLERGIC TO SHELLFISH OR IV DYE? NO . ANY NEW ALLERGIES? NO . PSYCHIATRIC: DO YOU HAVE THOUGHTS OF HURTING YOURSELF OR SOMEONE ELSE? NO . ARE YOU ABUSED, NEGLECTED, OR IN AN UNSAFE ENVIRONMENT? NO . ENDOCRINOLOGY: ARE YOU DIABETIC? NO . OTHER: DO YOU NEED ANY PRESCRIPTIONS? NO . IF YES, PLEASE LIST: ____ . ANY NEW PROBLEMS WITH YOUR MEDICATIONS? NO . WHEN DID YOU LAST EAT? ____11/30/16 . WHEN DID YOU LAST DRINK? ____11/30/16 . WHAT DID YOU LAST DRINK? ____ICE TEA . NAME OF PERSON DRIVING YOU HOME? ____WIFE . DO YOU HAVE ANY OTHER QUESTIONS OR CONCERNS NO . VITAL SIGNS WT 247.6 LBS, HT 68 IN, BMI 37.64 INDEX, BP 124/93 MANUAL, HR 84 /MIN, RR 16 /MIN, TEMP 97.5 F, OXYGEN SAT % 98, SAFE IN ENV? (Y/N) YES, NA INITIALS MP 1050, REVIEWED BY: VD. ASSESSMENTS INTERVERTEBRAL DISC DISORDERS WITH RADICULOPATHY, LUMBAR REGION - M51.16 (PRIMARY) PROCEDURES PN LUMBAR TRANSFORAMINAL BLOCKS PRE PROCEDURE DIAGNOSIS LUMBAR POST LAMINECTOMY PAIN SYNDROME POST PROCEDURE DIAGNOSIS LUMBAR POST LAMINECTOMY PAIN SYNDROME PROCEDURE RIGHT L3, L4, AND L5 TRANSFORAMINAL EPIDURAL STEROID INJECTION UNDER FLUOROSCOPIC GUIDANCE SURGEON DR ONUR LAFLEUR CHIEF ENGINEER RESEARCH NONE ANESTHESIA LOCAL PRE PROCEDURE NOTE PATIENT WITH HISTORY OF CHRONIC LOW BACK PAIN. I EVALUATE THE PATIENT AND REVIEWED THE CHART. I WENT OVER THE RISKS, ALTERNATIVES, AND BENEFITS ASSOCIATED WITH THIS PROCEDURE. THE PATIENT WOULD LIKE TO PROCEED AND GIVE CONSENT TO PERFORMED THE PROCEDURE. THE PATIENT DENIES UNEXPLAINABLE WEIGHT LOSS, FEVER, CHILLS, OR CHANGES IN URINARY OR BOWEL CONTROL DESCRIPTION OF PROCEDURE THE PATIENT WAS BROUGHT TO THE PROCEDURE ROOM AND PLACED IN THE PRONE POSITION. THE LUMBOSACRAL AREA WAS CLEANED WITH BETADINE SOLUTION AND DRAPED ASEPTICALLY. THE PROCEDURE WAS DONE UNDER STERILE CONDITIONS. I CHECKED LATERALITY AND THE LEVEL WHERE THE PROCEDURE WAS GOING TO BE PERFORMED WITH THE PATIENT AND THE SUPPORTING STAFF AT THE MOMENT OF THE TIME OUT IN THE PROCEDURE ROOM. UNDER FLUOROSCOPIC GUIDANCE, TARGETS WERE SELECTED AT THE RIGHT TRANSFORAMINAL OPENING OF L3, RIGHT TRANSFORAMINAL OPENING OF L4, AND RIGHT TRANSFORAMINAL OPENING OF L5. TARGET POINT WAS SELECTED AFTER LATERAL ROTATION AND TILT OF THE MAGNIFIER OF THE C-ARM. LIDOCAINE 0.5% WAS USED TO NUMB THE SKIN AND THE SUBCUTANEOUS TISSUE BELOW IT. AN EPIMED INTRODUCER 18-GAUGE WAS ADVANCED UNTIL WE WENT CLOSE TO THE SELECTED TRANSFORAMINAL OPENINGS. AFTER PROPER POSITION OF THE NEEDLES WAS ACHIEVED, A 22-GAUGE EPIMED NEEDLE WAS PLACED INSIDE OF THE INTRODUCER AND ADVANCED TO THE TRANSFORAMINAL OPENING OF THE SELECTED SITES. WHEN PROPER POSITION OF THE NEEDLE WAS ACHIEVED, ISOVUE M DYE 30%, 0.25 ML, WAS INJECTED SHOWING ADEQUATE SPREAD OF THE DYE. THIS WAS DONE UNDER DIGITAL SUBTRACTION AND ANGIOGRAPHY. THERE WAS NO VASCULAR UPDATE. THEN, A SOLUTION OF 2 ML OF BUPIVACAINE 0.25% AND DEXAMETHASONE 10 MG WAS INJECTED AT EACH SITE. THERE WAS NO EVIDENCE OF BLOOD, PARESTHESIA OR CEREBROSPINAL FLUID DURING THE PROCEDURE. THE PATIENT WAS SENT TO THE RECOVERY ROOM. THE PATIENT WAS MOVING THE EXTREMITIES AND DOING WELL. THERE WAS NO COMPLICATION DURING THE PROCEDURE. FLUOROSCOPY TIME WAS I MIN 3 SECONDS POST PROCEDURE NOTE THE PROCEDURE DONE WAS DISCUSSED WITH THE PATIENT. THE PATIENT WILL BE SEEN IN A FOLLOW UP IN THE NEXT FEW WEEKS. INSTRUCTIONS WERE GIVEN, QUESTIONS WERE ANSWERED, AND THE PATIENT EXPRESSED UNDERSTANDING AND AGREES WITH THE PLAN. I, ADIN ERAZO, DOCUMENTED THE ABOVE INFORMATION ACTING A SCRIBE FOR DR. LAFLEUR. I HAVE REVIEWED THE ABOVE DOCUMENT, WRITTEN BY ADIN ALEMAN AND I VERIFY THAT IT IS ACCURATE PN WORKMANS' COMP OPINION IN YOUR OPINION, WAS THE INCIDENT THAT THE PATIENT DESCRIBED THE COMPETENT MEDICAL CAUSE OF THIS INJURY/ILLNESS? YES ARE THE PATIENT'S COMPLAINTS CONSISTENT WITH HIS/HER HISTORY OF THE INJURY/ILLNESS? YES IS THE PATIENT'S HISTORY OF THE INJURY/ILLNESS CONSISTENT WITH YOUR OBJECTIVE FINDING? YES WHAT IS THE PERCENTAGE OF TEMPORARY IMPAIRMENT? MODERATE TO MARKED = 66.7% IS THE PATIENT WORKING? NO DOCTOR ON SITE: ONUR BIRMINGHAM MD DIAGNOSTIC IMAGING [facility] FLUORO GUIDE SPINE INJECTION (PAIN)[id number] PROCEDURE CODES 63355 DESTROY LUMB/SAC [place]ACET JNT 79443 DESTROY L/S FACET JNT ADDL 6045F RADXPS IN END [id number] PXD DISPOSITION & COMMUNICATION FOLLOW UP 3 WEEKS ELECTRONICALLY SIGNED BY ONUR LAFLEUR MD ON 12/11/2016 AT 07:41 AM EDT DISCLAIMER : THIS IS A VISIT SUMMARY EXTRACTED FROM THE [employer] CHART. IT IS NOT A COPY OF THE [employer] PROGRESS NOTE. MTDAnnette
== END ==
LOC: M PAIN 11:00
PROVIDERS: ATTEND Anesthesiology
DX: M96.1 Postlaminectomy syndrome, not elsewhere classified (principal); M51.16 Intervertebral disc disorders with radiculopathy, lumbar region; E11.9 Type 2 diabetes mellitus without complications; I10 Essential (primary) hypertension; Z88.5 Allergy status to narcotic agent; Z88.2 Allergy status to sulfonamides; Z88.8 Allergy status to other drugs, medicaments and biological substances; Z79.82 Long term (current) use of aspirin; Z79.4 Long term (current) use of insulin; Z79.891 Long term (current) use of opiate analgesic; Z79.899 Other long term (current) drug therapy
CPT/HCPCS: 64635; 64636; J1100; Q9967

== ENCOUNTER → 2017-02-03 | Outpatient (CLI) | payer OTHER ==
[~2017-02-03] MED LIST changes: -BUPIVACAINE HCL 0.25% 30 ML VIAL As Ordered ONE; -ISOVUE-M 300 61% 15ML VIAL (Q9967) As Ordered ONE; -LIDOCAINE 1% SDV INJ 30 ML VIAL As Ordered ONE; -dexameTHASONE 10 MG/1 ML VIAL PRES.FREE (J1100) As Ordered ONE; -diazePAM 5 MG TAB As Ordered ONE; -oxyCODONE 5MG TAB As Ordered ONE
--- NOTE | 2017-02-21 02:42 | ECWPNPC ---
PATIENT NAME: CASH AYERS : 1955 GENDER: MALE VISIT DATE: 02/03/2017 DISCHARGE DATE: 02/03/17 1450 VISIT LOCKED DATE TIME: PHYSICIAN: ESTELA CONNOLLY RESOURCE: ESTELA CONNOLLY REASON FOR APPOINTMENT 1. W/C HISTORY OF PRESENT ILLNESS HISTORY OF PRESENT ILLNESS: PAIN THE PATIENT DESCRIBES THE PAIN... FALL RISK SCREENING: SCREENING :NO FALLS IN THE PAST YEAR TODAY'S VISIT: CONTINUES W LBP R>L W RADIATION INTO RIGHT LEG. THIS IS A WORK RELATED INJURY DOI :Mar. VAS 9.5/10 PAIN SCORE. PAIN AGGREVATED W WALKING OR PROLONGED SITTING. CURRENT CHRONIC PAIN MEDICATION:PERCOCET 7.5/325 Q4 HR PRN,ROBAXIN 750MG QHS AND CYMBALTA 60MG DAILY.DENIES ADVERSE EFFECT W MEDICATION.RATING PAIN 9/10.RECIEVED 4 DAYS IMPROVEMENT POST RIGHT TRANSFORAMINAL STEROID INJECTION L3/4/5 ON 12-01-16.HE IS NO LONGER GETTING BENEFIT FROM PERCOCET AND WE WILL BE SLOWLY DECREASING AND DISCONTINUING. CURRENT MEDICATIONS TAKING TRESIBA FLEXTOUCH 100 UNIT/ML SOLUTION PEN-INJECTOR 130 UNITS SUBCUTANEOUS DAILY TAKING ASPIR-81 81 MG TABLET DELAYED RELEASE 1 TABLET ORALLY DAILY TAKING COREG 12.5 MG TABLET ORALLY BID TAKING CHOLECALCIFEROL 5000 UNIT CAPSULE ORALLY DAILY TAKING CINNAMON 500 MG CAPSULE ORALLY BID TAKING NOVOLOG FLEXPEN 100 UNIT/ML SOLUTION SUBCUTANEOUS SLIDING SCALE WITH MEALS TAKING HYDROCHLOROTHIAZIDE 25 MG TABLET 1 TABLET ORALLY BID TAKING CYMBALTA 60 MG CAPSULE DELAYED RELEASE PARTICLES 1 CAPSULE ORALLY WITH FOOD TWICE A DAY FOR PAIN MDD2 TAKING OXYCODONE-ACETAMINOPHEN 7.5-325 MG TABLET 1-2 ORALLY TID PRN MDD 6 TAKING METHOCARBAMOL 750 MG TABLET 1 TABLET ORALLY EVERY 8 HRS PRN FOR SPASMS AND PAIN MDD3 TAKING COLACE 100 MG CAPSULE 1 CAPSULE NEEDED ORALLY ONCE A DAY NOT-TAKING PERCOCET 7.5-325 MG TABLET 1 TABLET NEEDED ORALLY EVERY 4-6 HORS PRN PAIN MDD=6 DISCONTINUED INSULIN NPH (HUMAN) (ISOPHANE) 100 UNIT/ML SUSPENSION SUBCUTANEOUS 70U AM 70U PM DISCONTINUED CYCLOBENZAPRINE HCL 10 MG TABLET 1 TABLET ORALLY FOR SPASMS THREE TIMES A DAY NEEDED DISCONTINUED GABAPENTIN 300 MG CAPSULE 1 CAPSULE ORALLY FOR PAIN THREE TIMES A DAY DISCONTINUED TIZANIDINE HCL 2 MG TABLET 1 TABLET NEEDED ORALLY FOR SPASMS AND PAIN BEFORE BEDTIME MAY REPEAT IN 4 HRS MDD2 MEDICATION LIST REVIEWED AND RECONCILED WITH THE PATIENT PAST MEDICAL HISTORY IDDM HTN CHRONIC LOW BACK PAIN DIABETIC NEUROPATHY ALLERGIES FENTANYL: NAUSEA AND VOMITING: ALLERGY SULFA (FOR ALLERGY USE ONLY): HIVES: ALLERGY ALEX INHIBITOR (FOR ALLERGIES USE ONLY): THROAT CLOSES: ALLERGY PREGABALIN: EDEMA SOB: ALLERGY BUPRENORPHINE: UPSET STOMACH: ALLERGY CELEBREX: SKIN BLISTERS: ALLERGY SOCIAL HISTORY GENERAL: TOBACCO USE ARE YOU A:NONSMOKER ALCOHOL SCREENING POINTS0 INTERPRETATIONNEGATIVE RECREATIONAL DRUG USE DRUG USE?NO CAFFEINE CAFFEINE USE?YES 2-3 CUPS COFFEE/DAY, SEVERAL ICE TEA/DAY OCCUPATION: DISABLED. DIET: REGULAR. EXERCISE: NO REGULAR EXERCISE DUE TO PAIN. MARITAL STATUS: . TAOIST [id number] JAINISM LANGUAGE LANGUAGES SPOKEN:JAPANESE EDUCATION LEVEL OF EDUCATION:HIGH SCHOOL LEARNING BARRIERS / SPECIAL NEEDS BARRIERS TO LEARNING?NO HEARING IMPAIRED?NO VISION IMPAIRED?YES :CORRECTIVE LENSES COGNITIVELY IMPAIRED?NO READINESS TO LEARN?YES LEARNING PREFERENCES?NO LEARNING CAPABILITIES PRESENT?YES EMOTIONAL BARRIERS?NO SPECIAL DEVICES?YES :CANE, BRACE LEFT KNEE BRACE CLERICAL ORDER FILLER NEEDED?NO PAIN CLINIC PFS, CLERGY, PUBLIC HEALTH REFERRALS PFS REFERRAL NEEDED?NO CLERGY REFERRAL NEEDED?NO PUBLIC HEALTH REFERRAL NEEDED?NO WAS THE PROVIDER NOTIFIED OF ANY PERTINENT INFO?YES HAS THE PATIENT BEEN EDUCATED REGARDING HIS/HER PLAN OF CARE?YES HAS THE PATIENT BEEN EDUCATED REGARDING PAIN, THE RISK FOR PAIN, THE IMPORTANCE OF EFFECTIVE PAIN MANAGEMENT, AND THE PAIN ASSESSMENT PROCESS?YES PATIENT: ____. ADVANCE DIRECTIVES HEALTH CARE PROXY?NO WOULD YOU LIKE MORE INFORMATION?NO DO YOU HAVE A DNR?NO WOULD YOU LIKE MORE INFORMATION?NO LIVING WILL?NO WOULD YOU LIKE MORE INFORMATION?NO POWER OF JAR CAPPER?NO WOULD YOU LIKE MORE INFORMATION?NO DOMESTIC VIOLENCE DO YOU FEEL SAFE IN YOUR ENVIRONMENT?YES 02/03/17 1410 REVIEWED. AD. REVIEW OF SYSTEMS REVIEWED BY: PROVIDER: ESTELA ANGULO . CONSTITUTIONAL: ANY CHANGE IN YOUR MEDICAL CONDITION? NO . CHILLS NO . FEVER NO . INFECTION: DO YOU HAVE NEW INFECTIONS? NO . DO YOU HAVE HISTORY OF MRSA? NO . MUSCULOSKELETAL: ANY NEW PATTERNS OF PAIN OR NUMBNESS? NO . GASTROENTEROLOGY: ANY NEW CHANGE IN BOWEL CONTROL? NO . GENITOURINARY: ANY NEW CHANGE IN BLADDER CONTROL? NO . IS THERE A CHANCE YOU COULD BE ? NO . HEMATOLOGY/LYMPH: DO YOU TAKE ANY BLOOD THINNERS? (FOR EXAMPLE- COUMADIN, PLAVIX, AGGRENOX, PLATEL, PRADAXA, OR XARELTO) NO . WHEN WAS YOUR LAST DOSE? DATE: TIME: . NEUROLOGY: HAVE YOU FALLEN IN THE PAST 6 MONTHS? YES, STATES HE FALLS ALL THE TIME. HIS LEFT LEG GIVES OUT ON HIM. NO ER VISITS AND NO INJURIES . ANY NEW EXTREMITY NUMBNESS OR WEAKNESS? NO . CARDIOLOGY: DO YOU HAVE A PACEMAKER OR DEFIBRILLATOR? NO . RESPIRATORY: HAVE YOU BEEN SICK IN THE PAST WEEK? NO . FEVER NO . FLU LIKE SYMPTOMS? NO . COUGH NO . INTEGUMENTARY: DO YOU HAVE ANY RASHES OR OPEN SORES? NO . ALLERGIC/IMMUNO: ARE YOU ALLERGIC TO SHELLFISH OR IV DYE? NO . ANY NEW ALLERGIES? NO . PSYCHIATRIC: DO YOU HAVE THOUGHTS OF HURTING YOURSELF OR SOMEONE ELSE? NO . ARE YOU ABUSED, NEGLECTED, OR IN AN UNSAFE ENVIRONMENT? NO . ENDOCRINOLOGY: ARE YOU DIABETIC? YES, FSBS 223 THIS A.M . OTHER: DO YOU NEED ANY PRESCRIPTIONS? YES . IF YES, PLEASE LIST: OXYCOCONE, CYMBALTA,METHOCARBAMOL . ANY NEW PROBLEMS WITH YOUR MEDICATIONS? NO . WHEN DID YOU LAST EAT? ____ . WHEN DID YOU LAST DRINK? ____ . WHAT DID YOU LAST DRINK? ____ . NAME OF PERSON DRIVING YOU HOME? ____ . DO YOU HAVE ANY OTHER QUESTIONS OR CONCERNS NO . VITAL SIGNS WT 240 LBS, HT 68 IN, BMI 36.49 INDEX, BP 145/95 MM HG, HR 102 /MIN, RR 16 /MIN, TEMP 98.2 F, OXYGEN SAT % 94, NA INITIALS LC 1348, REVIEWED BY: AD. EXAMINATION GENERAL EXAMINATION: LUNGS:LUNG SOUNDS ARE CLEAR. HEART:HEART RATE REGULAR. MUSCULOSKELETAL:*, MUSCLE STRENGTH TESTING 3/5 RIGHT LEG 2/5 LEFT, PALPATION: POSITIVE FOR PAIN OVER L/S SPINE. POSITIVE FOR PAIN OVER L/S PARASPINALS.SPECIFIC POINT TENDERNESS RIGHT UPPER LUMBAR FACET.. DIAGNOSTIC: . ASSESSMENTS POST LAMINECTOMY SYNDROME - M96.1 (PRIMARY) CHRONIC PRESCRIPTION OPIATE USE - Z79.899 SACROILIAC JOINT PAIN - M53.3 TREATMENT POST LAMINECTOMY SYNDROME REFILL CYMBALTA CAPSULE DELAYED RELEASE PARTICLES, 60 MG, 1 CAPSULE, ORALLY WITH FOOD, TWICE A DAY FOR PAIN MDD2, 30 DAY(S), 60, REFILLS 2 REFILL OXYCODONE-ACETAMINOPHEN TABLET, 7.5-325 MG, 1-2, ORALLY, TID PRN MDD 5, 30 DAY(S), 150, REFILLS 0 REFILL METHOCARBAMOL TABLET, 750 MG, 1 TABLET, ORALLY, BEFORE BEDTIME, 30 DAY(S), 30, REFILLS 2 NOTES: [employer] REGISTRY REVIEWED [id number] RISKS AND BENEFITS OF NARCOTIC/OPIOD MEDICATIONS WERE REVIEWED WITH PATIENT - THIS INCLUDES BUT IS NOT LIMITED TO RISK OF DEPENDANCE/DEVELOPMENT OF ADDICTION, MOOD DISTURBANCE AND DEPRESSION, OSTEOPOROSIS, HORMONAL AND LABIDAL CHANGES, RESPIRATORY DEPRESSION AND . PATIENT IS ADVISED NOT TO DRIVE WHILE ON THESE MEDICATIONS, AND DEMNOSTRATES COMPLLIANCE. BRINGS IN MEDICATIONS WHICH IS APPROPRIATE FOR WHAT WAS DISPENSED. RECENT URINE TOXICOLOGY REVIEWED. NO UNAUTHORIZED MEDICATIONS. NO ILLICIT SUBSTANCES AND PRESCRIBED MEDICATIONS WERE PRESENT. PROCEDURES PN WORKMANS' COMP OPINION IN YOUR OPINION, WAS THE INCIDENT THAT THE PATIENT DESCRIBED THE COMPETENT MEDICAL CAUSE OF THIS INJURY/ILLNESS? YES ARE THE PATIENT'S COMPLAINTS CONSISTENT WITH HIS/HER HISTORY OF THE INJURY/ILLNESS? YES IS THE PATIENT'S HISTORY OF THE INJURY/ILLNESS CONSISTENT WITH YOUR OBJECTIVE FINDING? YES WHAT IS THE PERCENTAGE OF TEMPORARY IMPAIRMENT? MODERATE TO MARKED = 66.7% IS THE PATIENT WORKING? NO DOCTOR ON SITE: ONUR BIRMINGHAM MD PROCEDURE CODES FA211 ESTABILISHED PATIENT [facility] CHARGE DISPOSITION & COMMUNICATION FOLLOW UP 4 WEEKS ELECTRONICALLY SIGNED BY ADELE DUMONT ON 02/20/2017 AT 09:19 PM EDT DISCLAIMER : THIS IS A VISIT SUMMARY EXTRACTED FROM THE [employer] CHART. IT IS NOT A COPY OF THE [employer] PROGRESS NOTE. REGULO
== END ==
LOC: M PAIN 14:15
PROVIDERS: ATTEND Nurse Practitioner Family
DX: M96.1 Postlaminectomy syndrome, not elsewhere classified (principal); M53.3 Sacrococcygeal disorders, not elsewhere classified; E11.9 Type 2 diabetes mellitus without complications; I10 Essential (primary) hypertension; Z88.5 Allergy status to narcotic agent; Z88.2 Allergy status to sulfonamides; Z88.8 Allergy status to other drugs, medicaments and biological substances; Z79.82 Long term (current) use of aspirin; Z79.4 Long term (current) use of insulin; Z79.891 Long term (current) use of opiate analgesic; Z79.899 Other long term (current) drug therapy

== ENCOUNTER → 2017-03-16 | Outpatient (CLI) | payer OTHER | LOC: M PAIN 13:30 | PROVIDERS: ATTEND Nurse Practitioner Family | DX: M96.1 Postlaminectomy syndrome, not elsewhere classified (principal); M53.3 Sacrococcygeal disorders, not elsewhere classified; E11.9 Type 2 diabetes mellitus without complications; I10 Essential (primary) hypertension; Z79.4 Long term (current) use of insulin; Z79.82 Long term (current) use of aspirin; Z79.891 Long term (current) use of opiate analgesic; Z79.899 Other long term (current) drug therapy; Z88.8 Allergy status to other drugs, medicaments and biological substances; Z88.2 Allergy status to sulfonamides ==

== ENCOUNTER → 2017-05-16 | Outpatient (CLI) | payer OTHER | LOC: M PAIN 13:00 | DX: M96.1 Postlaminectomy syndrome, not elsewhere classified (principal); M53.3 Sacrococcygeal disorders, not elsewhere classified; E11.9 Type 2 diabetes mellitus without complications; I10 Essential (primary) hypertension; Z79.82 Long term (current) use of aspirin; Z79.4 Long term (current) use of insulin; Z79.899 Other long term (current) drug therapy; Z88.8 Allergy status to other drugs, medicaments and biological substances | CPT/HCPCS: G0463 ==

== ENCOUNTER → 2017-07-18 | Outpatient (CLI) | payer OTHER | LOC: M PAIN 13:15 | DX: M96.1 Postlaminectomy syndrome, not elsewhere classified (principal); M53.3 Sacrococcygeal disorders, not elsewhere classified; E11.9 Type 2 diabetes mellitus without complications; I10 Essential (primary) hypertension; Z79.82 Long term (current) use of aspirin; Z79.4 Long term (current) use of insulin; Z79.891 Long term (current) use of opiate analgesic; Z79.899 Other long term (current) drug therapy; Z88.8 Allergy status to other drugs, medicaments and biological substances | CPT/HCPCS: G0463 ==

== ENCOUNTER → 2017-10-17 | Outpatient (CLI) | payer OTHER | LOC: M PAIN 15:00 | DX: M96.1 Postlaminectomy syndrome, not elsewhere classified (principal); E11.9 Type 2 diabetes mellitus without complications; I10 Essential (primary) hypertension; Z79.899 Other long term (current) drug therapy; M53.3 Sacrococcygeal disorders, not elsewhere classified; Z79.4 Long term (current) use of insulin; Z79.82 Long term (current) use of aspirin; Z79.891 Long term (current) use of opiate analgesic; Z88.8 Allergy status to other drugs, medicaments and biological substances | CPT/HCPCS: G0463 ==

== ENCOUNTER → 2018-03-20 | Outpatient (CLI) | payer OTHER | LOC: M PAIN 13:00 | DX: M96.1 Postlaminectomy syndrome, not elsewhere classified (principal); M53.3 Sacrococcygeal disorders, not elsewhere classified; E11.40 Type 2 diabetes mellitus with diabetic neuropathy, unspecified; I10 Essential (primary) hypertension; E66.01 Morbid (severe) obesity due to excess calories; Z68.39 Body mass index [BMI] 39.0-39.9, adult; Z79.82 Long term (current) use of aspirin; Z79.4 Long term (current) use of insulin; Z79.899 Other long term (current) drug therapy; Z88.2 Allergy status to sulfonamides; Z88.5 Allergy status to narcotic agent; Z88.8 Allergy status to other drugs, medicaments and biological substances | CPT/HCPCS: G0463 ==

== ENCOUNTER → 2018-07-18 | Outpatient (CLI) | payer OTHER ==
[~2018-07-18] MED LIST changes: +SPIR-10 PO; -SPIR25TA2 PO; -SPIR50TA2 PO; +SPIR50TA4 PO
--- NOTE | 2018-08-02 01:30 | ECWPNPC ---
PATIENT NAME: CASH AYERS : 1955 GENDER: MALE VISIT DATE: 07/18/2018 DISCHARGE DATE: 07/18/18 1411 VISIT LOCKED DATE TIME: PHYSICIAN: ESTELA CONNOLLY RESOURCE: ESTELA CONNOLLY REASON FOR APPOINTMENT 1. W/C BACK HISTORY OF PRESENT ILLNESS HISTORY OF PRESENT ILLNESS: PAIN THE PATIENT DESCRIBES THE PAIN... FALL RISK SCREENING: SCREENING : NO FALLS IN THE PAST YEAR. TODAY'S VISIT: CONTINUES W LBP R>L W RADIATION INTO RIGHT LEG. THIS IS A WORK RELATED INJURY DOI :Mar. VAS 8/10 PAIN SCORE. PAIN AGGREVATED W WALKING OR PROLONGED SITTING.HE REPORTS LOWER EXTREMITY WEAKNESS THAT CAUSES FREQUENT FALLS WHICH IS RELATED TO LUMBAR RADICULOPATHY ASSOCIATED WITH HIS WORK RELATED INJURY. CURRENT CHRONIC PAIN MEDICATION: CYMBALTA 60MG BID.DENIES ADVERSE EFFECT W MEDICATION.ATTENDING ACCUPUNCTURE AND INFORMS ME THAT HE IS GETTING THE BEST PAIN CONTROL HE HAS HAD IN YEARS. USING DCS WITH SIGNIFICANT IMPROVEMENT IN L>R LEG SYMPTOMS.HE WOULD LIKE TO TALK TO GITA TO SEE IF HE CAN ADJUST COVERAGE FOR IMPROVED RIGHT LEG PAIN CONTROL. CURRENT MEDICATIONS TAKING TRESIBA FLEXTOUCH 100 UNIT/ML SOLUTION PEN-INJECTOR 130 UNITS SUBCUTANEOUS DAILY TAKING ASPIR-81 81 MG TABLET DELAYED RELEASE 1 TABLET ORALLY DAILY TAKING COREG 12.5 MG TABLET ORALLY BID TAKING CHOLECALCIFEROL 5000 UNIT CAPSULE ORALLY DAILY TAKING CINNAMON 500 MG CAPSULE ORALLY BID TAKING NOVOLOG FLEXPEN 100 UNIT/ML SOLUTION SUBCUTANEOUS SLIDING SCALE WITH MEALS TAKING COLACE 100 MG CAPSULE 1 CAPSULE NEEDED ORALLY ONCE A DAY TAKING FUROSEMIDE 20 MG TABLET 1 TABLET ORALLY BID TAKING TURMERIC 500 MG CAPSULE ORALLY TAKING CYMBALTA 60 MG CAPSULE DELAYED RELEASE PARTICLES 1 CAPSULE ORALLY BID NOT-TAKING HYDROCHLOROTHIAZIDE 25 MG TABLET 1 TABLET ORALLY BID NOT-TAKING PERCOCET 7.5-325 MG TABLET 1 TABLET NEEDED ORALLY EVERY 4-6 HORS PRN PAIN MDD=6 MEDICATION LIST REVIEWED AND RECONCILED WITH THE PATIENT PAST MEDICAL HISTORY IDDM HTN CHRONIC LOW BACK PAIN DIABETIC NEUROPATHY PNEUMONIA KIDNEY STONES ALLERGIES FENTANYL: NAUSEA AND VOMITING - ALLERGY SULFA (FOR ALLERGY USE ONLY): HIVES - ALLERGY ALEX INHIBITOR (FOR ALLERGIES USE ONLY): THROAT CLOSES - ALLERGY PREGABALIN: EDEMA SOB - ALLERGY BUPRENORPHINE: UPSET STOMACH - ALLERGY CELEBREX: SKIN BLISTERS - ALLERGY SURGICAL HISTORY DOUBLE INGUINAL HERNIA 1984 EYE SURGERY 1960 EYE SURGERY 1985 BILATERAL CATERACATS 2014 BACK SURGERY 1996 BACK SURGERY 2004 DCS 2013 SOCIAL HISTORY GENERAL: TOBACCO USE ARE YOU A:NONSMOKER ALCOHOL SCREENING DID YOU HAVE A DRINK CONTAINING ALCOHOL IN THE PAST YEAR?NO POINTS0 INTERPRETATIONNEGATIVE RECREATIONAL DRUG USE DRUG USE?NO CAFFEINE CAFFEINE USE?YES 2-3 CUPS COFFEE/DAY, SEVERAL ICE TEA/DAY CAODAISM [id number] YARSANI LANGUAGE LANGUAGES SPOKEN:INDONESIAN EDUCATION LEVEL OF EDUCATION:HIGH SCHOOL LEARNING BARRIERS / SPECIAL NEEDS BARRIERS TO LEARNING?NO HEARING IMPAIRED?NO VISION IMPAIRED?YES :CORRECTIVE LENSES COGNITIVELY IMPAIRED?NO READINESS TO LEARN?YES LEARNING PREFERENCES?NO LEARNING CAPABILITIES PRESENT?YES EMOTIONAL BARRIERS?NO SPECIAL DEVICES?YES :CANE, BRACE LEFT KNEE BRACE HOME 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 DIET: REGULAR. EXERCISE: NO REGULAR EXERCISE DUE TO PAIN. MARITAL STATUS: . PAIN CLINIC PFS, CLERGY, PUBLIC HEALTH REFERRALS PFS REFERRAL NEEDED?NO CLERGY REFERRAL NEEDED?NO PUBLIC HEALTH REFERRAL NEEDED?NO WAS THE PROVIDER NOTIFIED OF ANY PERTINENT INFO?YES HAS THE PATIENT BEEN EDUCATED REGARDING HIS/HER PLAN OF CARE?YES HAS THE PATIENT BEEN EDUCATED REGARDING PAIN, THE RISK FOR PAIN, THE IMPORTANCE OF EFFECTIVE PAIN MANAGEMENT, AND THE PAIN ASSESSMENT PROCESS?YES ADVANCE DIRECTIVE ADVANCE DIRECTIVE DISCUSSED WITH PATIENT:YES DECLINED 02/03/17 1410 REVIEWED. [id number] REVIEWED WITH KAIT GALEAS. HOSPITALIZATION/MAJOR DIAGNOSTIC PROCEDURE SURGERY RELATED REVIEW OF SYSTEMS REVIEWED BY: PROVIDER: ESTELA ANGULO . CONSTITUTIONAL: ANY CHANGE IN YOUR MEDICAL CONDITION? NO . CHILLS NO . FEVER NO . INFECTION: DO YOU HAVE NEW INFECTIONS? NO . DO YOU HAVE HISTORY OF MRSA? NO . MUSCULOSKELETAL: ANY NEW PATTERNS OF PAIN OR NUMBNESS? NO . GASTROENTEROLOGY: ANY NEW CHANGE IN BOWEL CONTROL? NO . GENITOURINARY: ANY NEW CHANGE IN BLADDER CONTROL? NO . IS THERE A CHANCE YOU COULD BE ? NO . HEMATOLOGY/LYMPH: DO YOU TAKE ANY BLOOD THINNERS? (FOR EXAMPLE- COUMADIN, PLAVIX, AGGRENOX, PLATEL, PRADAXA, OR XARELTO) NO . WHEN WAS YOUR LAST DOSE? DATE: TIME: . NEUROLOGY: HAVE YOU FALLEN IN THE PAST 12 MONTHS? NO . ANY NEW EXTREMITY NUMBNESS OR WEAKNESS? NO . CARDIOLOGY: DO YOU HAVE A PACEMAKER OR DEFIBRILLATOR? YES, DCS . RESPIRATORY: HAVE YOU BEEN SICK IN THE PAST WEEK? NO . FEVER NO . FLU LIKE SYMPTOMS? NO . COUGH NO . INTEGUMENTARY: DO YOU HAVE ANY RASHES OR OPEN SORES? NO . ALLERGIC/IMMUNO: ARE YOU ALLERGIC TO IV DYE? NO . ANY NEW ALLERGIES? NO . PSYCHIATRIC: DO YOU HAVE THOUGHTS OF HURTING YOURSELF OR SOMEONE ELSE? NO . ARE YOU ABUSED, NEGLECTED, OR IN AN UNSAFE ENVIRONMENT? NO . ENDOCRINOLOGY: ARE YOU DIABETIC? YES . OTHER: DO YOU NEED ANY PRESCRIPTIONS? NO . IF YES, PLEASE LIST: ____ . ANY NEW PROBLEMS WITH YOUR MEDICATIONS? NO . WHEN DID YOU LAST EAT? ____ . WHEN DID YOU LAST DRINK? ____ . WHAT DID YOU LAST DRINK? ____ . NAME OF PERSON DRIVING YOU HOME? ____ . DO YOU HAVE ANY OTHER QUESTIONS OR CONCERNS NO . VITAL SIGNS WT 258 LBS, HT 68 IN, BMI 39.22 INDEX, BP 120/72 MANUAL, HR 89 /MIN, RR 16 /MIN, TEMP 98.8 F, OXYGEN SAT % 95%, NA INITIALS AW 1355, REVIEWED BY: EM. EXAMINATION GENERAL EXAMINATION: GENERAL APPEARANCE:AWAKE,ALERT ,PLEAASANT . PSYCHAFFECT NORMAL . LUNGS:LUNG ISSA ARE CLEAR TO AUSCULTATION BILATERALLY. GOOD MOVEMENT OF AIR . HEART:S1, S2 IN A REGULAR RATE AND RHYTHM. NO SIGNIFICANT MURMURS, RUBS OR GALLOPS NOTED . 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 YES ARE THE PATIENT'S COMPLAINTS CONSISTENT WITH HIS/HER HISTORY OF THE INJURY/ILLNESS? YES IS THE PATIENT'S HISTORY OF THE INJURY/ILLNESS CONSISTENT WITH YOUR OBJECTIVE FINDING? YES WHAT IS THE PERCENTAGE OF TEMPORARY IMPAIRMENT? MODERATE TO MARKED = 66.7% IS THE PATIENT WORKING? NO DOCTOR ON SITE: [facility] [place] MD PROCEDURE CODES FA211 ESTABILISHED PATIENT [facility] CHARGE DISPOSITION & COMMUNICATION FOLLOW UP 4 MONTHS ELECTRONICALLY SIGNED BY ADELE SANDERSON ON 08/01/2018 AT 01:54 PM EDT DISCLAIMER : THIS IS A VISIT SUMMARY EXTRACTED FROM THE [employer] CHART. IT IS NOT A COPY OF THE [employer] PROGRESS NOTE. REGULO
== END ==
LOC: M PAIN 13:00
PROVIDERS: ATTEND Nurse Practitioner Family
DX: M96.1 Postlaminectomy syndrome, not elsewhere classified (principal); M53.3 Sacrococcygeal disorders, not elsewhere classified; E11.40 Type 2 diabetes mellitus with diabetic neuropathy, unspecified; Z79.82 Long term (current) use of aspirin; Z79.4 Long term (current) use of insulin; Z79.899 Other long term (current) drug therapy; Z88.2 Allergy status to sulfonamides; Z88.5 Allergy status to narcotic agent; Z88.6 Allergy status to analgesic agent; Z88.8 Allergy status to other drugs, medicaments and biological substances

== ENCOUNTER → 2018-11-16 | Outpatient (CLI) | payer OTHER ==
[~2018-11-16] MED LIST changes: -/ARTH50TA PO; -/DULO30CA PO; +ARTH1TAB4 PO; +CYMB1CAP5 PO
--- NOTE | 2018-12-01 01:48 | ECWPNPC ---
PATIENT NAME: CASH AYERS : 1955 GENDER: MALE VISIT DATE: 11/16/2018 DISCHARGE DATE: 11/16/18 1341 VISIT LOCKED DATE TIME: PHYSICIAN: ESTELA CONNOLLY RESOURCE: ESTELA CONNOLLY REASON FOR APPOINTMENT 1. W/C BACK HISTORY OF PRESENT ILLNESS HISTORY OF PRESENT ILLNESS: PAIN THE PATIENT DESCRIBES THE PAIN... FALL RISK SCREENING: SCREENING :NO FALLS REPORTED IN THE LAST YEAR TODAY'S VISIT: CONTINUES W LBP R>L W RADIATION INTO RIGHT LEG. THIS IS A WORK RELATED INJURY DOI :Mar. VAS 9/10 PAIN SCORE. PAIN AGGREVATED W WALKING OR PROLONGED SITTING.HE REPORTS LOWER EXTREMITY WEAKNESS THAT CAUSES FREQUENT FALLS WHICH IS RELATED TO LUMBAR RADICULOPATHY ASSOCIATED WITH HIS WORK RELATED INJURY. CURRENT CHRONIC PAIN MEDICATION: CYMBALTA 60MG BID.DENIES ADVERSE EFFECT W MEDICATION.ATTENDING ACCUPUNCTURE. USING DCS WITH SIGNIFICANT IMPROVEMENT IN L>R LEG SYMPTOMS. CURRENT MEDICATIONS TAKING TRESIBA FLEXTOUCH 100 UNIT/ML SOLUTION PEN-INJECTOR 130 UNITS SUBCUTANEOUS DAILY TAKING ASPIR-81 81 MG TABLET DELAYED RELEASE 1 TABLET ORALLY DAILY TAKING COREG 12.5 MG TABLET ORALLY BID TAKING CHOLECALCIFEROL 5000 UNIT CAPSULE ORALLY DAILY TAKING CINNAMON 500 MG CAPSULE ORALLY BID TAKING NOVOLOG FLEXPEN 100 UNIT/ML SOLUTION SUBCUTANEOUS SLIDING SCALE WITH MEALS TAKING COLACE 100 MG CAPSULE 1 CAPSULE NEEDED ORALLY ONCE A DAY TAKING TURMERIC 500 MG CAPSULE ORALLY TAKING CYMBALTA 60 MG CAPSULE DELAYED RELEASE PARTICLES 1 CAPSULE ORALLY BID TAKING TRULICITY 0.75 MG/0.5ML SOLUTION PEN-INJECTOR DIRECTED SUBCUTANEOUS WEEKLY, NOTES: UNSURE OF STRENGTH NOT-TAKING FUROSEMIDE 20 MG TABLET 1 TABLET ORALLY BID NOT-TAKING HYDROCHLOROTHIAZIDE 25 MG TABLET 1 TABLET ORALLY BID NOT-TAKING PERCOCET 7.5-325 MG TABLET 1 TABLET NEEDED ORALLY EVERY 4-6 HORS PRN PAIN MDD=6 MEDICATION LIST REVIEWED AND RECONCILED WITH THE PATIENT PAST MEDICAL HISTORY IDDM HTN CHRONIC LOW BACK PAIN DIABETIC NEUROPATHY PNEUMONIA KIDNEY STONES ALLERGIES FENTANYL: NAUSEA AND VOMITING - ALLERGY SULFA (FOR ALLERGY USE ONLY): HIVES - ALLERGY ALEX INHIBITOR (FOR ALLERGIES USE ONLY): THROAT CLOSES - ALLERGY PREGABALIN: EDEMA SOB - ALLERGY BUPRENORPHINE: UPSET STOMACH - ALLERGY CELEBREX: SKIN BLISTERS - ALLERGY SURGICAL HISTORY DOUBLE INGUINAL HERNIA 1984 EYE SURGERY 1960 EYE SURGERY 1985 BILATERAL CATERACATS 2014 BACK SURGERY 1996 BACK SURGERY 2004 DCS 2012 FAMILY HISTORY FATHER: , DIAGNOSED WITH CANCER MOTHER: , CANCER 2 BROTHER(S) , 1 SISTER(S) . 1DAUGHTER(S) - HEALTHY. MOTHER - BREAST CANCERFATHER - LUNG CANCERBROTHER - DM. SOCIAL HISTORY GENERAL: TOBACCO USE ARE YOU A:NONSMOKER EDUCATION LEVEL OF EDUCATION:HIGH SCHOOL DIET: REGULAR. LANGUAGE LANGUAGES SPOKEN:[place]AL[place] DOMESTIC VIOLENCE DO YOU FEEL SAFE IN YOUR ENVIRONMENT?YES RECREATIONAL DRUG USE DRUG USE?NO EXERCISE: NO REGULAR EXERCISE DUE TO PAIN. LEARNING BARRIERS / SPECIAL NEEDS BARRIERS TO LEARNING?NO HEARING IMPAIRED?NO VISION IMPAIRED?YES :CORRECTIVE LENSES COGNITIVELY IMPAIRED?NO READINESS TO LEARN?YES LEARNING PREFERENCES?NO LEARNING CAPABILITIES PRESENT?YES EMOTIONAL BARRIERS?NO SPECIAL DEVICES?YES :CANE, BRACE LEFT KNEE BRACE INDUSTRIAL SAFETY ENGINEER NEEDED?NO PAIN CLINIC PFS, CLERGY, PUBLIC HEALTH REFERRALS PFS REFERRAL NEEDED?NO CLERGY REFERRAL NEEDED?NO PUBLIC HEALTH REFERRAL NEEDED?NO WAS THE PROVIDER NOTIFIED OF ANY PERTINENT INFO?YES HAS THE PATIENT BEEN EDUCATED REGARDING HIS/HER PLAN OF CARE?YES HAS THE PATIENT BEEN EDUCATED REGARDING PAIN, THE RISK FOR PAIN, THE IMPORTANCE OF EFFECTIVE PAIN MANAGEMENT, AND THE PAIN ASSESSMENT PROCESS?YES LATEX QUESTIONNAIRE LATEX ALLERGY : HAVE YOU EVER DEVELOPED ANY TYPE OF REACTION AFTER HANDLING LATEX PRODUCTS SUCH RUBBER GLOVES, CONDOMS, DIAPHRAGMS, BALLOONS, SOCKS, OR UNDERWEAR?NO LATEX ALLERGY : HAVE YOU EVER DEVELOPED ANY TYPE OF REACTION DURING OR AFTER DENTAL APPOINTMENT, VAGINAL/RECTAL EXAMINATION, SURGICAL PROCEDURE, OR ANY OTHER EXPOSURE?NO LATEX RISK : HAVE YOU EVER HAD ANY DIFFICULTY BREATHING OR HIVES AFTER EATING OR HANDLING ANY FRUITS, OR VEGETABLES; SUCH KIWI, BANANAS, STONE FRUITS, OR CHESTNUTSNO LATEX RISK : DO YOU HAVE A PREVIOUS PERSONAL HISTORY OF MORE THAN NINE SURGERIES, SPINA BIFIDA, OR REPEATED CATHERIZATIONS? NO LATEX RISK : ARE YOU FREQUENTLY EXPOSED TO LATEX PRODUCTS IN YOUR OCCUPATION?NO DATE ASKED : 11/16/2018 CAFFEINE CAFFEINE USE?YES 2-3 CUPS COFFEE/DAY, SEVERAL ICE TEA/DAY ADVANCE DIRECTIVE ADVANCE DIRECTIVE DISCUSSED WITH PATIENT:YES PATIENT DECLINED HCP INFORMATION AT THIS TIME. HINDU [id number] RASTAFARIAN MARITAL STATUS: . ALCOHOL SCREENING DID YOU HAVE A DRINK CONTAINING ALCOHOL IN THE PAST YEAR?NO POINTS0 INTERPRETATIONNEGATIVE OCCUPATION: DISABLED. 02/03/17 1410 REVIEWED. [id number] REVIEWED WITH PT LASREVIEWED WITH PATIENT 11/16/18 1312 JS. HOSPITALIZATION/MAJOR DIAGNOSTIC PROCEDURE SURGERY RELATED REVIEW OF SYSTEMS REVIEWED BY: PROVIDER: ESTELA ANGULO . CONSTITUTIONAL: ANY CHANGE IN YOUR MEDICAL CONDITION? NO . CHILLS NO . FEVER NO . INFECTION: DO YOU HAVE NEW INFECTIONS? NO . DO YOU HAVE HISTORY OF MRSA? NO . MUSCULOSKELETAL: ANY NEW PATTERNS OF PAIN OR NUMBNESS? NO . GASTROENTEROLOGY: ANY NEW CHANGE IN BOWEL CONTROL? NO . GENITOURINARY: ANY NEW CHANGE IN BLADDER CONTROL? NO . IS THERE A CHANCE YOU COULD BE ? NO . HEMATOLOGY/LYMPH: DO YOU TAKE ANY BLOOD THINNERS? (FOR EXAMPLE- COUMADIN, PLAVIX, AGGRENOX, PLATEL, PRADAXA, OR XARELTO) NO . WHEN WAS YOUR LAST DOSE? DATE: TIME: . NEUROLOGY: HAVE YOU FALLEN IN THE PAST 12 MONTHS? YES, STATES FALL IN AUGUST DUE TO LEGS GIVING OUT ON HIM. STATES HE FELL ON HIS BUTTOCKS, NO MAJOR INJURIES, NO ED VISIT . ANY NEW EXTREMITY NUMBNESS OR WEAKNESS? NO . CARDIOLOGY: DO YOU HAVE A PACEMAKER OR DEFIBRILLATOR? PATIENT HAS A DORSAL COLUMN STIMULATOR . RESPIRATORY: HAVE YOU BEEN SICK IN THE PAST WEEK? NO . FEVER NO . FLU LIKE SYMPTOMS? NO . COUGH NO . INTEGUMENTARY: DO YOU HAVE ANY RASHES OR OPEN SORES? NO . ALLERGIC/IMMUNO: ARE YOU ALLERGIC TO IV DYE? NO . ANY NEW ALLERGIES? NO . PSYCHIATRIC: DO YOU HAVE THOUGHTS OF HURTING YOURSELF OR SOMEONE ELSE? NO . ARE YOU ABUSED, NEGLECTED, OR IN AN UNSAFE ENVIRONMENT? NO . ENDOCRINOLOGY: ARE YOU DIABETIC? YES . OTHER: DO YOU NEED ANY PRESCRIPTIONS? YES . IF YES, PLEASE LIST: ____CYMBALTA . ANY NEW PROBLEMS WITH YOUR MEDICATIONS? NO . WHEN DID YOU LAST EAT? ____ . WHEN DID YOU LAST DRINK? ____ . WHAT DID YOU LAST DRINK? ____ . NAME OF PERSON DRIVING YOU HOME? ____ . DO YOU HAVE ANY OTHER QUESTIONS OR CONCERNS SHINGLES VACCINE APPROXIMATELY 1 MONTH AGO . VITAL SIGNS WT 246.2 LBS, HT 68 IN, BMI 37.43 INDEX, BP 140/76 MM HG, HR 90 /MIN, RR 16 /MIN, TEMP 97.5 F, OXYGEN SAT % 94%, SAFE IN ENV? (Y/N) YES, NA INITIALS SC 13:02, REVIEWED BY: AASHISH. EXAMINATION GENERAL EXAMINATION: GENERALAWAKE,ALERT ,PLEAASANT . PSYCHAFFECT NORMAL . LUNGS:LUNG ISSA ARE CLEAR TO AUSCULTATION BILATERALLY. GOOD MOVEMENT OF AIR . HEART:S1, S2 IN A REGULAR RATE AND RHYTHM. NO SIGNIFICANT MURMURS, RUBS OR GALLOPS NOTED . 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 YES ARE THE PATIENT'S COMPLAINTS CONSISTENT WITH HIS/HER HISTORY OF THE INJURY/ILLNESS? YES IS THE PATIENT'S HISTORY OF THE INJURY/ILLNESS CONSISTENT WITH YOUR OBJECTIVE FINDING? YES WHAT IS THE PERCENTAGE OF TEMPORARY IMPAIRMENT? MARKED = 75% IS THE PATIENT WORKING? NO DOCTOR ON SITE: ONUR [place] MD PROCEDURE CODES FA211 ESTABILISHED PATIENT [facility] FACILITY CHARGE DISPOSITION & COMMUNICATION FOLLOW UP 4 MONTHS ELECTRONICALLY SIGNED BY ADELE SANDERSON ON 11/30/2018 AT 09:06 AM EDT DISCLAIMER : THIS IS A VISIT SUMMARY EXTRACTED FROM THE [employer] CHART. IT IS NOT A COPY OF THE [employer] PROGRESS NOTE. REGULO
== END ==
LOC: M PAIN 13:00
PROVIDERS: ATTEND Nurse Practitioner Family
DX: M96.1 Postlaminectomy syndrome, not elsewhere classified (principal); M53.3 Sacrococcygeal disorders, not elsewhere classified; E11.40 Type 2 diabetes mellitus with diabetic neuropathy, unspecified; I10 Essential (primary) hypertension; M54.5 Low back pain; Z87.442 Personal history of urinary calculi; Z79.82 Long term (current) use of aspirin; Z79.84 Long term (current) use of oral hypoglycemic drugs; Z79.899 Other long term (current) drug therapy; Z98.41 Cataract extraction status, right eye; Z98.42 Cataract extraction status, left eye; Z88.5 Allergy status to narcotic agent; Z88.2 Allergy status to sulfonamides; Z88.8 Allergy status to other drugs, medicaments and biological substances; Z79.891 Long term (current) use of opiate analgesic

== ENCOUNTER → 2019-03-19 | Outpatient (CLI) | payer OTHER ==
--- NOTE | 2019-04-04 05:42 | ECWPNPC ---
PATIENT NAME: CASH AYERS : 1955 GENDER: MALE VISIT DATE: 03/19/2019 DISCHARGE DATE: 03/19/19 1346 VISIT LOCKED DATE TIME: PHYSICIAN: ESTELA CONNOLLY RESOURCE: ESTELA CONNOLLY REASON FOR APPOINTMENT 1. W/C BACK HISTORY OF PRESENT ILLNESS HISTORY OF PRESENT ILLNESS: PAIN THE PATIENT DESCRIBES THE PAIN... FALL RISK SCREENING: SCREENING :NO FALLS REPORTED IN THE LAST YEAR TODAY'S VISIT: CONTINUES W LBP R>L W RADIATION INTO RIGHT LEG. THIS IS A WORK RELATED INJURY DOI :Mar. VAS 9/10 PAIN SCORE. PAIN AGGREVATED W WALKING OR PROLONGED SITTING.HE REPORTS LOWER EXTREMITY WEAKNESS THAT CAUSES FREQUENT FALLS WHICH IS RELATED TO LUMBAR RADICULOPATHY ASSOCIATED WITH HIS WORK RELATED INJURY. CURRENT CHRONIC PAIN MEDICATION: CYMBALTA 60MG BID.DENIES ADVERSE EFFECT W MEDICATION.ATTENDING ACCUPUNCTURE. USING DCS WITH SIGNIFICANT IMPROVEMENT IN L>R LEG SYMPTOMS. CURRENT MEDICATIONS TAKING TRESIBA FLEXTOUCH 100 UNIT/ML SOLUTION PEN-INJECTOR 144 UNITS SUBCUTANEOUS DAILY TAKING COREG 12.5 MG TABLET ORALLY BID TAKING CHOLECALCIFEROL 5000 UNIT CAPSULE ORALLY DAILY TAKING CINNAMON 500 MG CAPSULE ORALLY BID TAKING NOVOLOG FLEXPEN 100 UNIT/ML SOLUTION SUBCUTANEOUS SLIDING SCALE WITH MEALS TAKING TURMERIC 500 MG CAPSULE ORALLY TAKING TRULICITY 0.75 MG/0.5ML SOLUTION PEN-INJECTOR 1.5 DIRECTED SUBCUTANEOUS WEEKLY, NOTES: UNSURE OF STRENGTH TAKING CYMBALTA 60 MG CAPSULE DELAYED RELEASE PARTICLES 1 CAPSULE ORALLY BID TAKING TORSEMIDE 5 MG TABLET 1 TABLET ORALLY ONCE A DAY NOT-TAKING ASPIR-81 81 MG TABLET DELAYED RELEASE 1 TABLET ORALLY DAILY NOT-TAKING COLACE 100 MG CAPSULE 1 CAPSULE NEEDED ORALLY ONCE A DAY NOT-TAKING FUROSEMIDE 20 MG TABLET 1 TABLET ORALLY BID NOT-TAKING HYDROCHLOROTHIAZIDE 25 MG TABLET 1 TABLET ORALLY BID NOT-TAKING PERCOCET 7.5-325 MG TABLET 1 TABLET NEEDED ORALLY EVERY 4-6 HORS PRN PAIN MDD=6 MEDICATION LIST REVIEWED AND RECONCILED WITH THE PATIENT PAST MEDICAL HISTORY IDDM HTN CHRONIC LOW BACK PAIN DIABETIC NEUROPATHY PNEUMONIA KIDNEY STONES ALLERGIES FENTANYL: NAUSEA AND VOMITING - ALLERGY SULFA (FOR ALLERGY USE ONLY): HIVES - ALLERGY ALEX INHIBITOR (FOR ALLERGIES USE ONLY): THROAT CLOSES - ALLERGY PREGABALIN: EDEMA SOB - ALLERGY BUPRENORPHINE: UPSET STOMACH - ALLERGY CELEBREX: SKIN BLISTERS - ALLERGY SURGICAL HISTORY DOUBLE INGUINAL HERNIA 1984 EYE SURGERY 1960 EYE SURGERY 1985 BILATERAL CATERACATS 2014 BACK SURGERY 1996 BACK SURGERY 2004 DCS 2012 FAMILY HISTORY FATHER: , DIAGNOSED WITH OTHER MALIGNANT NEOPLASM OF UNSPECIFIED SITE MOTHER: , OTHER MALIGNANT NEOPLASM OF UNSPECIFIED SITE 2 BROTHER(S) , 1 SISTER(S) . 1DAUGHTER(S) - HEALTHY. MOTHER - BREAST CANCERFATHER - LUNG CANCERBROTHER - DM. SOCIAL HISTORY GENERAL: TOBACCO USE ARE YOU A:NONSMOKER EDUCATION LEVEL OF EDUCATION:HIGH SCHOOL DIET: REGULAR. LANGUAGE LANGUAGES SPOKEN:[place] DOMESTIC VIOLENCE DO YOU FEEL SAFE IN YOUR ENVIRONMENT?YES RECREATIONAL DRUG USE DRUG USE?NO EXERCISE: NO REGULAR EXERCISE DUE TO PAIN. LEARNING BARRIERS / SPECIAL NEEDS BARRIERS TO LEARNING?NO HEARING IMPAIRED?NO VISION IMPAIRED?YES COGNITIVELY IMPAIRED?NO :CORRECTIVE LENSES READINESS TO LEARN?YES LEARNING PREFERENCES?NO LEARNING CAPABILITIES PRESENT?YES EMOTIONAL BARRIERS?NO SPECIAL DEVICES?YES :CANE, BRACE LEFT KNEE BRACE SOCIAL MEDIA DEVELOPER NEEDED?NO PAIN CLINIC PFS, CLERGY, PUBLIC HEALTH REFERRALS PFS REFERRAL NEEDED?NO CLERGY REFERRAL NEEDED?NO PUBLIC HEALTH REFERRAL NEEDED?NO WAS THE PROVIDER NOTIFIED OF ANY PERTINENT INFO?YES HAS THE PATIENT BEEN EDUCATED REGARDING HIS/HER PLAN OF CARE?YES HAS THE PATIENT BEEN EDUCATED REGARDING PAIN, THE RISK FOR PAIN, THE IMPORTANCE OF EFFECTIVE PAIN MANAGEMENT, AND THE PAIN ASSESSMENT PROCESS?YES LATEX QUESTIONNAIRE LATEX ALLERGY : HAVE YOU EVER DEVELOPED ANY TYPE OF REACTION AFTER HANDLING LATEX PRODUCTS SUCH RUBBER GLOVES, CONDOMS, DIAPHRAGMS, BALLOONS, SOCKS, OR UNDERWEAR?NO LATEX ALLERGY : HAVE YOU EVER DEVELOPED ANY TYPE OF REACTION DURING OR AFTER DENTAL APPOINTMENT, VAGINAL/RECTAL EXAMINATION, SURGICAL PROCEDURE, OR ANY OTHER EXPOSURE?NO LATEX RISK : HAVE YOU EVER HAD ANY DIFFICULTY BREATHING OR HIVES AFTER EATING OR HANDLING ANY FRUITS, OR VEGETABLES; SUCH KIWI, BANANAS, STONE FRUITS, OR CHESTNUTSNO LATEX RISK : DO YOU HAVE A PREVIOUS PERSONAL HISTORY OF MORE THAN NINE SURGERIES, SPINA BIFIDA, OR REPEATED CATHERIZATIONS? NO LATEX RISK : ARE YOU FREQUENTLY EXPOSED TO LATEX PRODUCTS IN YOUR OCCUPATION?NO DATE ASKED : 11/16/2018 CAFFEINE CAFFEINE USE?YES 2-3 CUPS COFFEE/DAY, SEVERAL ICE TEA/DAY ADVANCE DIRECTIVE ADVANCE DIRECTIVE DISCUSSED WITH PATIENT:YES PATIENT DECLINED HCP INFORMATION AT THIS TIME. MOSQUE [id number] QUAKER MARITAL STATUS: . ALCOHOL SCREENING DID YOU HAVE A DRINK CONTAINING ALCOHOL IN THE PAST YEAR?NO POINTS0 INTERPRETATIONNEGATIVE OCCUPATION: DISABLED. 02/03/17 1410 REVIEWED. [id number] REVIEWED WITH PT LASREVIEWED WITH PATIENT 11/16/18 1312 JSREVIEWED WITH PATIENT 03/19/19 1313 JS. HOSPITALIZATION/MAJOR DIAGNOSTIC PROCEDURE SURGERY RELATED REVIEW OF SYSTEMS REVIEWED BY: PROVIDER: ESTELA ANGULO . CONSTITUTIONAL: ANY CHANGE IN YOUR MEDICAL CONDITION? NO . CHILLS NO . FEVER NO . INFECTION: DO YOU HAVE NEW INFECTIONS? NO . DO YOU HAVE HISTORY OF MRSA? NO . MUSCULOSKELETAL: ANY NEW PATTERNS OF PAIN OR NUMBNESS? NO . GASTROENTEROLOGY: ANY NEW CHANGE IN BOWEL CONTROL? NO . GENITOURINARY: ANY NEW CHANGE IN BLADDER CONTROL? NO . IS THERE A CHANCE YOU COULD BE ? NO . HEMATOLOGY/LYMPH: DO YOU TAKE ANY BLOOD THINNERS? (FOR EXAMPLE- COUMADIN, PLAVIX, AGGRENOX, PLATEL, PRADAXA, OR XARELTO) NO . WHEN WAS YOUR LAST DOSE? DATE: TIME: . NEUROLOGY: HAVE YOU FALLEN IN THE PAST 12 MONTHS? YES, STATES FALL A COUPLE MONTHS AGO, LEGS WENT OUT ON HIM. NO ED VISIT, NO IMAGING . ANY NEW EXTREMITY NUMBNESS OR WEAKNESS? NO . CARDIOLOGY: DO YOU HAVE A PACEMAKER OR DEFIBRILLATOR? YES, DORSAL COLUMN STIMULATOR . RESPIRATORY: HAVE YOU BEEN SICK IN THE PAST WEEK? NO . FEVER NO . FLU LIKE SYMPTOMS? NO . COUGH NO . INTEGUMENTARY: DO YOU HAVE ANY RASHES OR OPEN SORES? NO . ALLERGIC/IMMUNO: ARE YOU ALLERGIC TO IV DYE? NO . ANY NEW ALLERGIES? NO . PSYCHIATRIC: DO YOU HAVE THOUGHTS OF HURTING YOURSELF OR SOMEONE ELSE? NO . ARE YOU ABUSED, NEGLECTED, OR IN AN UNSAFE ENVIRONMENT? NO . ENDOCRINOLOGY: ARE YOU DIABETIC? YES . OTHER: DO YOU NEED ANY PRESCRIPTIONS? YES . IF YES, PLEASE LIST: ____CYMBALTA . ANY NEW PROBLEMS WITH YOUR MEDICATIONS? NO . WHEN DID YOU LAST EAT? ____ . WHEN DID YOU LAST DRINK? ____ . WHAT DID YOU LAST DRINK? ____ . NAME OF PERSON DRIVING YOU HOME? ____ . DO YOU HAVE ANY OTHER QUESTIONS OR CONCERNS NO . VITAL SIGNS WT 248.0 LBS, HT 68 IN, BMI 37.70 INDEX, BP 119/58 MM HG, HR 92 /MIN, RR 16 /MIN, TEMP 98.4 F, OXYGEN SAT % 97%, SAFE IN ENV? (Y/N) YES, NA INITIALS AW 1308, REVIEWED BY: AASHISH. EXAMINATION GENERAL EXAMINATION: GENERALAWAKE,ALERT ,PLEAASANT . PSYCHAFFECT NORMAL . LUNGS:LUNG ISSA ARE CLEAR TO AUSCULTATION BILATERALLY. GOOD MOVEMENT OF AIR . HEART:S1, S2 IN A REGULAR RATE AND RHYTHM. NO SIGNIFICANT MURMURS, RUBS OR GALLOPS NOTED . ASSESSMENTS POST LAMINECTOMY SYNDROME - M96.1 (PRIMARY) CHRONIC PRESCRIPTION OPIATE USE - Z79.899 SACROILIAC JOINT PAIN - M53.3 TREATMENT POST LAMINECTOMY SYNDROME CONTINUE CYMBALTA CAPSULE DELAYED RELEASE PARTICLES, 60 MG, 1 CAPSULE, ORALLY, BID PROCEDURES PN WORKMANS' COMP OPINION IN YOUR OPINION, WAS THE INCIDENT THAT THE PATIENT DESCRIBED THE COMPETENT MEDICAL CAUSE OF THIS INJURY/ILLNESS? YES ARE THE PATIENT'S COMPLAINTS CONSISTENT WITH HIS/HER HISTORY OF THE INJURY/ILLNESS? YES IS THE PATIENT'S HISTORY OF THE INJURY/ILLNESS CONSISTENT WITH YOUR OBJECTIVE FINDING? YES WHAT IS THE PERCENTAGE OF TEMPORARY IMPAIRMENT? MODERATE TO MARKED = 66.7% IS THE PATIENT WORKING? NO DOCTOR ON SITE: ONUR [place] MD PROCEDURE CODES FA211 ESTABILISHED PATIENT [facility] FACILITY CHARGE DISPOSITION & COMMUNICATION FOLLOW UP 4 MONTHS (REASON: W/C LBP) ELECTRONICALLY SIGNED BY ADELE SANDERSON ON 04/03/2019 AT 08:45 AM EST DISCLAIMER : THIS IS A VISIT SUMMARY EXTRACTED FROM THE [employer] CHART. IT IS NOT A COPY OF THE [employer] PROGRESS NOTE. REGULO
== END ==
LOC: M PAIN 13:00
PROVIDERS: ATTEND Nurse Practitioner Family
DX: M96.1 Postlaminectomy syndrome, not elsewhere classified (principal); M53.3 Sacrococcygeal disorders, not elsewhere classified; E11.40 Type 2 diabetes mellitus with diabetic neuropathy, unspecified; I10 Essential (primary) hypertension; Z88.2 Allergy status to sulfonamides; Z88.5 Allergy status to narcotic agent; Z88.8 Allergy status to other drugs, medicaments and biological substances; Z79.4 Long term (current) use of insulin; Z79.899 Other long term (current) drug therapy

== ENCOUNTER → 2019-10-08 | Outpatient (CLI) | payer OTHER ==
--- NOTE | 2019-10-09 04:21 | ECWPNPC ---
PATIENT NAME: CASH AYERS : 1955 GENDER: MALE VISIT DATE: 10/08/2019 DISCHARGE DATE: 10/08/19 1354 VISIT LOCKED DATE TIME: PHYSICIAN: ESTELA CONNOLLY RESOURCE: ESTELA CONNOLLY REASON FOR APPOINTMENT 1. W/C BACK HISTORY OF PRESENT ILLNESS GENERAL: -. FALL RISK SCREENING: SCREENING :ONE FALL WITH INJURY IN THE PAST YEAR PAIN SCREENING: PATIENT HAS A COMPLAINT OF ACUTE OR CHRONIC PAIN :NO NURSING NOTE: -. PAIN CENTER INTAKE QUESTIONS: DO YOU HAVE A HISTORY OF MRSA? :NO DO YOU TAKE A BLOOD THINNERS? :NO DO YOU HAVE ANY BLEEDING DISORDERS? :NO ANY NEW NUMBNESS OR WEAKNESS IN YOUR LEGS OR ARMS? :NO ANY PACEMAKER,DEFIBRILLATOR, OR DORSAL COLUMN STIMULATOR? :YES DCS DO YOU HAVE ANY RASHES OR OPEN SORES? :YES RASH TO RIGHT KNEE S/P FALL ARE YOU ALLERGIC TO IV DYE? :NO ARE YOU DIABETIC? :YES ANY NEW PROBLEMS WITH YOUR MEDICATIONS? :NO HAVE YOU RECEIVED A VACCINE IN THE PAST 30 DAYS? :NO DO YOU PLAN TO RECEIVE A VACCINE IN THE NEXT 21 DAYS? :NO DO YOU NEED ANY PRESCRIPTION? :NO DO YOU TAKE ANY IMMUNOSUPPRESSIVE MEDICATIONS? :NO IS THERE A CHANCE YOU COULD BE ? :NO ARE YOU BREAST FEEDING? :NO TODAY'S VISIT: THIS IS A SIX-MONTH FOLLOW-UP OF CHRONIC LOW BACK PAIN WITH RIGHT LEG RADICULAR SYMPTOMS. THIS IS A WORK RELATED INJURY DOI :Mar. PAIN AGGREVATED W WALKING OR PROLONGED SITTING. CURRENT CHRONIC PAIN MEDICATION: CYMBALTA 60MG BID.DENIES ADVERSE EFFECTS WITH MEDICATION. USING DCS WITH SIGNIFICANT IMPROVEMENT IN LEG SYMPTOMS. REPORTING DORSAL COLUMN STIMULATOR INCISIONAL DISCOMFORT ON THE UPPER LUMBAR AREA. THIS AREA IS EXAMINED WITH NO REDNESS OR SWELLING NOTED. PATIENT STATES IT'S JUST SENSITIVE TO LIGHT TOUCH. DISCUSSED TREATMENT OPTIONS. CURRENT MEDICATIONS TAKING TRESIBA FLEXTOUCH 100 UNIT/ML SOLUTION PEN-INJECTOR 144 UNITS SUBCUTANEOUS DAILY TAKING COREG 12.5 MG TABLET ORALLY BID TAKING CHOLECALCIFEROL 5000 UNIT CAPSULE ORALLY DAILY TAKING CINNAMON 500 MG CAPSULE ORALLY BID TAKING NOVOLOG FLEXPEN 100 UNIT/ML SOLUTION SUBCUTANEOUS SLIDING SCALE WITH MEALS TAKING TURMERIC 500 MG CAPSULE ORALLY TAKING TRULICITY 0.75 MG/0.5ML SOLUTION PEN-INJECTOR 1.5 DIRECTED SUBCUTANEOUS WEEKLY, NOTES: UNSURE OF STRENGTH TAKING TORSEMIDE 5 MG TABLET 1 TABLET ORALLY ONCE A DAY TAKING CYMBALTA 60 MG CAPSULE DELAYED RELEASE PARTICLES 1 CAPSULE ORALLY BID NOT-TAKING ASPIR-81 81 MG TABLET DELAYED RELEASE 1 TABLET ORALLY DAILY NOT-TAKING COLACE 100 MG CAPSULE 1 CAPSULE NEEDED ORALLY ONCE A DAY NOT-TAKING FUROSEMIDE 20 MG TABLET 1 TABLET ORALLY BID NOT-TAKING HYDROCHLOROTHIAZIDE 25 MG TABLET 1 TABLET ORALLY BID NOT-TAKING PERCOCET 7.5-325 MG TABLET 1 TABLET NEEDED ORALLY EVERY 4-6 HORS PRN PAIN MDD=6 MEDICATION LIST REVIEWED AND RECONCILED WITH THE PATIENT PAST MEDICAL HISTORY IDDM HTN CHRONIC LOW BACK PAIN DIABETIC NEUROPATHY PNEUMONIA KIDNEY STONES ALLERGIES FENTANYL: NAUSEA AND VOMITING - ALLERGY SULFA (FOR ALLERGY USE ONLY): HIVES - ALLERGY ALEX INHIBITOR (FOR ALLERGIES USE ONLY): THROAT CLOSES - ALLERGY PREGABALIN: EDEMA SOB - ALLERGY BUPRENORPHINE: UPSET STOMACH - ALLERGY CELEBREX: SKIN BLISTERS - ALLERGY SURGICAL HISTORY DOUBLE INGUINAL HERNIA 1984 EYE SURGERY 1960 EYE SURGERY 1985 BILATERAL CATERACATS 2014 BACK SURGERY 1996 BACK SURGERY 2004 DCS 2012 SKIMCOAT OF EYES REMOVED 07/2019 FAMILY HISTORY FATHER: , DIAGNOSED WITH OTHER MALIGNANT NEOPLASM OF UNSPECIFIED SITE MOTHER: , OTHER MALIGNANT NEOPLASM OF UNSPECIFIED SITE 2 BROTHER(S) , 1 SISTER(S) . 1DAUGHTER(S) - HEALTHY. MOTHER - BREAST CANCERFATHER - LUNG CANCERBROTHER - DM. SOCIAL HISTORY GENERAL: TOBACCO USE ARE YOU A:NONSMOKER LATEX QUESTIONNAIRE LATEX ALLERGY : HAVE YOU EVER DEVELOPED ANY TYPE OF REACTION AFTER HANDLING LATEX PRODUCTS SUCH RUBBER GLOVES, CONDOMS, DIAPHRAGMS, BALLOONS, SOCKS, OR UNDERWEAR?NO LATEX ALLERGY : HAVE YOU EVER DEVELOPED ANY TYPE OF REACTION DURING OR AFTER DENTAL APPOINTMENT, VAGINAL/RECTAL EXAMINATION, SURGICAL PROCEDURE, OR ANY OTHER EXPOSURE?NO DATE ASKED : 11/16/2018 LATEX RISK : HAVE YOU EVER HAD ANY DIFFICULTY BREATHING OR HIVES AFTER EATING OR HANDLING ANY FRUITS, OR VEGETABLES; SUCH KIWI, BANANAS, STONE FRUITS, OR CHESTNUTSNO LATEX RISK : DO YOU HAVE A PREVIOUS PERSONAL HISTORY OF MORE THAN NINE SURGERIES, SPINA BIFIDA, OR REPEATED CATHERIZATIONS? NO LATEX RISK : ARE YOU FREQUENTLY EXPOSED TO LATEX PRODUCTS IN YOUR OCCUPATION?NO ALCOHOL SCREENING DID YOU HAVE A DRINK CONTAINING ALCOHOL IN THE PAST YEAR?NO POINTS0 INTERPRETATIONNEGATIVE RECREATIONAL DRUG USE DRUG USE?NO CAFFEINE CAFFEINE USE?YES 2-3 CUPS COFFEE/DAY, SEVERAL ICE TEA/DAY RESTORATION [id number] NONDENOMINATIONAL LANGUAGE LANGUAGES SPOKEN:UZBEK EDUCATION LEVEL OF EDUCATION:HIGH SCHOOL LEARNING BARRIERS / SPECIAL NEEDS BARRIERS TO LEARNING?NO HEARING IMPAIRED?NO VISION IMPAIRED?YES COGNITIVELY IMPAIRED?NO :CORRECTIVE LENSES READINESS TO LEARN?YES LEARNING PREFERENCES?NO LEARNING CAPABILITIES PRESENT?YES EMOTIONAL BARRIERS?NO SPECIAL DEVICES?YES :CANE, BRACE LEFT KNEE BRACE SENIOR SUSTAINABILITY CONSULTANT NEEDED?NO DOMESTIC VIOLENCE DO YOU FEEL SAFE IN YOUR ENVIRONMENT?YES OCCUPATION: DISABLED. DIET: REGULAR. EXERCISE: NO REGULAR EXERCISE DUE TO PAIN. MARITAL STATUS: . PAIN CLINIC PFS, CLERGY, PUBLIC HEALTH REFERRALS PFS REFERRAL NEEDED?NO CLERGY REFERRAL NEEDED?NO PUBLIC HEALTH REFERRAL NEEDED?NO WAS THE PROVIDER NOTIFIED OF ANY PERTINENT INFO?YES HAS THE PATIENT BEEN EDUCATED REGARDING HIS/HER PLAN OF CARE?YES HAS THE PATIENT BEEN EDUCATED REGARDING PAIN, THE RISK FOR PAIN, THE IMPORTANCE OF EFFECTIVE PAIN MANAGEMENT, AND THE PAIN ASSESSMENT PROCESS?YES ADVANCE DIRECTIVE ADVANCE DIRECTIVE DISCUSSED WITH PATIENT:YES PATIENT DECLINED HCP INFORMATION AT THIS TIME. 02/03/17 1410 REVIEWED. [id number] REVIEWED WITH PT LASREVIEWED WITH PATIENT 11/16/18 1312 JSREVIEWED WITH PATIENT 03/19/19 1313 JS. HOSPITALIZATION/MAJOR DIAGNOSTIC PROCEDURE SURGERY RELATED REVIEW OF SYSTEMS CONSTITUTIONAL: ANY RECENT FEVER OR ILLNESS NO . CHILLS NO . GASTROENTEROLOGY: BOWEL INCONTINENCE NO . ANY NEW CHANGE IN BOWEL CONTROL? NO . ABDOMINAL PAIN NO . CONSTIPATION NO . GENITOURINARY: ANY NEW CHANGE IN BLADDER CONTROL? NO . IS THERE A CHANCE YOU COULD BE ? NO . URINARY INCONTINENCE NO . CARDIOLOGY: CHEST PRESSURE NO . CHEST PAIN NO . RESPIRATORY: COUGH NO . SHORTNESS OF BREATH NO . VITAL SIGNS WT 237 LBS, HT 68 IN, BMI 36.03 INDEX, BP 179/87 MM HG, HR 87 /MIN, RR 16 /MIN, TEMP 98.4 F, OXYGEN SAT % 97, SAFE IN ENV? (Y/N) Y, REVIEWED BY: CARLOS. EXAMINATION GENERAL EXAMINATION: GENERALAWAKE,ALERT ,PLEAASANT . PSYCHAFFECT NORMAL . LUNGS:LUNG ISSA ARE CLEAR TO AUSCULTATION BILATERALLY. GOOD MOVEMENT OF AIR . HEART:S1, S2 IN A REGULAR RATE AND RHYTHM. NO SIGNIFICANT MURMURS, RUBS OR GALLOPS NOTED . 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 YES ARE THE PATIENT'S COMPLAINTS CONSISTENT WITH HIS/HER HISTORY OF THE INJURY/ILLNESS? YES IS THE PATIENT'S HISTORY OF THE INJURY/ILLNESS CONSISTENT WITH YOUR OBJECTIVE FINDING? YES WHAT IS THE PERCENTAGE OF TEMPORARY IMPAIRMENT? MODERATE TO MARKED = 66.7% IS THE PATIENT WORKING? NO DOCTOR ON SITE: [facility] [place] MD PROCEDURE CODES FA211 ESTABILISHED PATIENT [facility] CHARGE DISPOSITION & COMMUNICATION FOLLOW UP 6 MONTHS (REASON: W/C LBP/MED MGMNT) ELECTRONICALLY SIGNED BY ADELE SANDERSON ON 10/08/2019 AT 02:12 PM EDT DISCLAIMER : THIS IS A VISIT SUMMARY EXTRACTED FROM THE [employer] CHART. IT IS NOT A COPY OF THE [employer] PROGRESS NOTE. REGULO
== END ==
LOC: M PAIN 13:00
PROVIDERS: ATTEND Nurse Practitioner Family
DX: M96.1 Postlaminectomy syndrome, not elsewhere classified (principal)

== ENCOUNTER → 2020-05-14 | Outpatient (CLI) | payer OTHER ==
--- NOTE | 2020-05-15 23:32 | ECWPNPC ---
PATIENT NAME: CASH AYERS : 1955 GENDER: MALE VISIT DATE: 05/14/2020 DISCHARGE DATE: 05/14/20 1135 VISIT LOCKED DATE TIME: PHYSICIAN: ESTELA CONNOLLY RESOURCE: ESTELA CONNOLLY REASON FOR APPOINTMENT 1. W/C LOW BACK HISTORY OF PRESENT ILLNESS DEPRESSION SCREENING: PHQ-2 (2015 EDITION) LITTLE INTEREST OR PLEASURE IN DOING THINGS?NOT AT ALL FEELING DOWN, DEPRESSED, OR HOPELESS?NOT AT ALL TOTAL SCORE0 PAIN SCREENING: PATIENT HAS A COMPLAINT OF ACUTE OR CHRONIC PAIN :YES LOCATION OF PAIN:LOW BACK INTENSITY OF PAIN (SCALE OF 1 TO 10):9 WHAT DOES YOUR PAIN FEEL LIKE:BURNING, CONTINOUS, SHARP, STABBING, TENDER, THROBBING, SORE, SHOOTING DURATION:CONSTANT, STEADY, AWAKENS FROM SLEEP PAIN IS INCREASED BY:ACTIVITIES, PROLONGED STANDING PAIN IS DECREASED BY:OTHERS TREATMENT/MEDICATIONS USED TO MANAGE PAIN:NONE NOTHING PAIN CENTER INTAKE QUESTIONS: DO YOU HAVE A HISTORY OF MRSA? :NO DO YOU TAKE A BLOOD THINNERS? :NO DO YOU HAVE ANY BLEEDING DISORDERS? :NO ANY NEW NUMBNESS OR WEAKNESS IN YOUR LEGS OR ARMS? :NO ANY PACEMAKER,DEFIBRILLATOR, OR DORSAL COLUMN STIMULATOR? :YES DCS DO YOU HAVE ANY RASHES OR OPEN SORES? :NO ARE YOU ALLERGIC TO IV DYE? :NO ARE YOU DIABETIC? :YES ANY NEW PROBLEMS WITH YOUR MEDICATIONS? :NO HAVE YOU RECEIVED A VACCINE IN THE PAST 30 DAYS? :NO DO YOU PLAN TO RECEIVE A VACCINE IN THE NEXT 21 DAYS? :YES IF SO WHAT VACCINE AND WHEN? PATIENT WISHES TO RECEIVE COVID VACCINATION WHEN AVAILABLE. DO YOU NEED ANY PRESCRIPTION? :NO DO YOU TAKE ANY IMMUNOSUPPRESSIVE MEDICATIONS? :NO IS THERE A CHANCE YOU COULD BE ? :NO ARE YOU BREAST FEEDING? :NO GENERAL: BEING SEEN TODAY FOR SIX-MONTH FOLLOW-UP AND MEDICATION MANAGEMENT FOR PERSISTENT LOW BACK PAIN WITH RIGHT LEG RADICULAR SYMPTOMS. CURRENTLY USING CYMBALTA 60 MG TWICE A DAY AND FINDS THIS MEDICATION HELPFUL AT REDUCING PAIN AND KEEPING HIM FUNCTIONAL. DENIES ADVERSE SIDE EFFECTS WITH MEDICATION. CONTINUES TO HAVE SIGNIFICANT DISCOMFORT ALONG INCISIONAL AREA UPPER LUMBAR SPINE THAT RADIATES INTO THE PARASPINAL REGION ON BOTH SIDES. THIS HAS BEEN GOING ON FOR SEVERAL MONTHS. HE HAS LOST 70 POUNDS OVER THE PAST YEAR AND HARDWARE FOR DORSAL DORSAL COLUMN STIMULATOR SEEMS TO BE MORE PROMINENT IN THAT AREA AND VERY HYPERSENSITIVE TO ANY PRESSURE. REPORTING SEVERE DISRUPTION IN SLEEP DUE TO THE FACT THAT HE CAN'T LAY ON HIS BACK. HE DOES MUCH BETTER WHEN HE IS IN A SUPPORTED POSITION WITH HIS HEAD OF BED ELEVATED AND HIS FEET ELEVATED. UNFORTUNATELY HE DOES NOT HAVE AN ADJUSTABLE BED TO ACCOMMODATE THIS. I FEEL IT IS MEDICALLY NECESSARY TO REQUEST THIS FROM [employer]ENS[employer]. HE DOES NOT WANT DORSAL COLUMN STIMULATOR REMOVED IT IS PROVIDING SIGNIFICANT REDUCTION IN HIS PAIN ESPECIALLY IN HIS LEGS. -. FALL RISK SCREENING: SCREENING :NO FALLS REPORTED IN THE LAST YEAR NURSING NOTE: -. CURRENT MEDICATIONS TAKING TRESIBA FLEXTOUCH 100 UNIT/ML SOLUTION PEN-INJECTOR 144 UNITS SUBCUTANEOUS DAILY TAKING COREG 12.5 MG TABLET ORALLY BID TAKING CHOLECALCIFEROL 5000 UNIT CAPSULE ORALLY DAILY TAKING CINNAMON 500 MG CAPSULE ORALLY BID TAKING NOVOLOG FLEXPEN 100 UNIT/ML SOLUTION SUBCUTANEOUS SLIDING SCALE WITH MEALS TAKING TURMERIC 500 MG CAPSULE ORALLY TAKING TRULICITY 0.75 MG/0.5ML SOLUTION PEN-INJECTOR 1.5 DIRECTED SUBCUTANEOUS WEEKLY, NOTES: UNSURE OF STRENGTH TAKING TORSEMIDE 5 MG TABLET 1 TABLET ORALLY ONCE A DAY TAKING CYMBALTA 60 MG CAPSULE DELAYED RELEASE PARTICLES 1 CAPSULE ORALLY BID NOT-TAKING ASPIR-81 81 MG TABLET DELAYED RELEASE 1 TABLET ORALLY DAILY NOT-TAKING COLACE 100 MG CAPSULE 1 CAPSULE NEEDED ORALLY ONCE A DAY NOT-TAKING FUROSEMIDE 20 MG TABLET 1 TABLET ORALLY BID NOT-TAKING HYDROCHLOROTHIAZIDE 25 MG TABLET 1 TABLET ORALLY BID NOT-TAKING PERCOCET 7.5-325 MG TABLET 1 TABLET NEEDED ORALLY EVERY 4-6 HORS PRN PAIN MDD=6 MEDICATION LIST REVIEWED AND RECONCILED WITH THE PATIENT PAST MEDICAL HISTORY IDDM HTN CHRONIC LOW BACK PAIN DIABETIC NEUROPATHY PNEUMONIA KIDNEY STONES ALLERGIES FENTANYL: NAUSEA AND VOMITING - ALLERGY SULFA (FOR ALLERGY USE ONLY): HIVES - ALLERGY ALEX INHIBITOR (FOR ALLERGIES USE ONLY): THROAT CLOSES - ALLERGY PREGABALIN: EDEMA SOB - ALLERGY BUPRENORPHINE: UPSET STOMACH - ALLERGY CELEBREX: SKIN BLISTERS - ALLERGY SURGICAL HISTORY DOUBLE INGUINAL HERNIA 1985 EYE SURGERY 1960 EYE SURGERY 1985 BILATERAL CATERACATS 2014 BACK SURGERY 1996 BACK SURGERY 2004 SKIMCOAT OF EYES REMOVED 07/2019 FAMILY HISTORY FATHER: , DIAGNOSED WITH OTHER MALIGNANT NEOPLASM OF UNSPECIFIED SITE MOTHER: , OTHER MALIGNANT NEOPLASM OF UNSPECIFIED SITE 2 BROTHER(S) , 1 SISTER(S) . 1DAUGHTER(S) - HEALTHY. MOTHER - BREAST CANCERFATHER - LUNG CANCERBROTHER - DM. SOCIAL HISTORY GENERAL: TOBACCO USE ARE YOU A:NONSMOKER LATEX QUESTIONNAIRE LATEX ALLERGY : HAVE YOU EVER DEVELOPED ANY TYPE OF REACTION AFTER HANDLING LATEX PRODUCTS SUCH RUBBER GLOVES, CONDOMS, DIAPHRAGMS, BALLOONS, SOCKS, OR UNDERWEAR?NO LATEX ALLERGY : HAVE YOU EVER DEVELOPED ANY TYPE OF REACTION DURING OR AFTER DENTAL APPOINTMENT, VAGINAL/RECTAL EXAMINATION, SURGICAL PROCEDURE, OR ANY OTHER EXPOSURE?NO LATEX RISK : HAVE YOU EVER HAD ANY DIFFICULTY BREATHING OR HIVES AFTER EATING OR HANDLING ANY FRUITS, OR VEGETABLES; SUCH KIWI, BANANAS, STONE FRUITS, OR CHESTNUTSNO LATEX RISK : DO YOU HAVE A PREVIOUS PERSONAL HISTORY OF MORE THAN NINE SURGERIES, SPINA BIFIDA, OR REPEATED CATHERIZATIONS? NO LATEX RISK : ARE YOU FREQUENTLY EXPOSED TO LATEX PRODUCTS IN YOUR OCCUPATION?NO DATE ASKED : 05/14/2020 ALCOHOL SCREENING DID YOU HAVE A DRINK CONTAINING ALCOHOL IN THE PAST YEAR?NO POINTS0 INTERPRETATIONNEGATIVE RECREATIONAL DRUG USE DRUG USE?NO CAFFEINE CAFFEINE USE?YES 2-3 CUPS COFFEE/DAY, SEVERAL ICE TEA/DAY ANABAPTISM [id number] [employer] LANGUAGE LANGUAGES SPOKEN:CANADI[place] EDUCATION LEVEL OF EDUCATION:HIGH SCHOOL LEARNING BARRIERS / SPECIAL NEEDS CHANGE FROM LAST VISIT?NO BARRIERS TO LEARNING?NO HEARING IMPAIRED?NO VISION IMPAIRED?YES :CORRECTIVE LENSES COGNITIVELY IMPAIRED?NO READINESS TO LEARN?YES LEARNING PREFERENCES?NO LEARNING CAPABILITIES PRESENT?YES EMOTIONAL BARRIERS?NO SPECIAL DEVICES?YES :CANE, BRACE LEFT KNEE BRACE 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 DIET: REGULAR. EXERCISE: NO REGULAR EXERCISE DUE TO PAIN. MARITAL STATUS: . PAIN CLINIC PFS, CLERGY, PUBLIC HEALTH REFERRALS PFS REFERRAL NEEDED?NO CLERGY REFERRAL NEEDED?NO PUBLIC HEALTH REFERRAL NEEDED?NO WAS THE PROVIDER NOTIFIED OF ANY PERTINENT INFO?YES HAS THE PATIENT BEEN EDUCATED REGARDING HIS/HER PLAN OF CARE?YES HAS THE PATIENT BEEN EDUCATED REGARDING PAIN, THE RISK FOR PAIN, THE IMPORTANCE OF EFFECTIVE PAIN MANAGEMENT, AND THE PAIN ASSESSMENT PROCESS?YES ADVANCE DIRECTIVE ADVANCE DIRECTIVE DISCUSSED WITH PATIENT:YES PATIENT DECLINED HCP INFORMATION AT THIS TIME. 02/03/17 1410 REVIEWED. [id number] REVIEWED WITH PT LASREVIEWED WITH PATIENT 11/16/18 1312 JSREVIEWED WITH PATIENT 03/19/19 1313 JS. HOSPITALIZATION/MAJOR DIAGNOSTIC PROCEDURE SURGERY RELATED REVIEW OF SYSTEMS CONSTITUTIONAL: ANY RECENT FEVER NO . CHILLS NO . WEIGHT CHANGE OF UNKNOWN REASONS NO . GASTROENTEROLOGY: NEW UNEXPLAINABLE CHANGES IN BOWEL CONTROL NO . CONSTIPATION NO . GENITOURINARY: ANY NEW CHANGE IN BLADDER CONTROL? NO . NEUROLOGY: NEW ONSET DIZZINESS OR NEUROLOGICAL CHANGES NOT MENTIONED NO . NEW NUMBNESS OR PAIN PATTERNS NOT MENTIONED AND PERTINENT TO TODAY'S VISIT NO . CARDIOLOGY: NEW CHEST PRESSURE NO . NEW CHEST PAIN NO . RESPIRATORY: UNEXPLAINABLE COUGH NO . NEW SHORTNESS OF BREATH NO . BLOOD PRESSURE IS ELEVATED TODAY. PATIENT WILL TAKE HOME BLOOD PRESSURE READINGS AND REPORT TO [facility]. STATES THAT THEY ARE REDUCING HIS BLOOD PRESSURE MEDICATIONS DUE TO HIS SIGNIFICANT WEIGHT LOSS OVER THE PAST YEAR. VITAL SIGNS WT 231.6 LBS, HT 68 IN, BMI 35.21 INDEX, BP 202/102 MM HG, REPEAT BP 200/100 MANUAL BP LEFT SIDE, HR 94 /MIN, RR 18 /MIN, TEMP 98.1 F, OXYGEN SAT % 94, SAFE IN ENV? (Y/N) YES, REVIEWED BY: LULÚ SIGNS OBTAINED. REPEAT BP TAKEN WITH PATIENT LAYING FLAT ON LEFT SIDE. PROVIDER NOTIFIED. JACKY [place] MA. EXAMINATION GENERAL EXAMINATION: GENERALNO ACUTE DISTRESS, WELL NOURISHED AND HYDRATED. PSYCHAPPROPRIATE MOOD AND AFFECT . LUNGS:CLEAR TO AUSCULTATION BILATERALLY, NO WHEEZES, RHONCHI, RALES. HEART:NO MURMURS, REGULAR RATE AND RHYTHM. LUMBAR:MARKED TENDERNESS TO LIGHT TOUCH OVER UPPER LUMBAR INCISIONAL AREA. THERE IS A FIRM AREA OF HYPERSENSITIVITY WHICH CORRELATES WITH DORSAL COLUMN STIMULATOR HARDWARE AND WIRING. WHEN THIS AREA IS PALPATED PATIENT STATES HE HAS SHOCKING FEELING IN HIS LEGS. . ASSESSMENTS POST LAMINECTOMY SYNDROME - M96.1 (PRIMARY) TREATMENT POST LAMINECTOMY SYNDROME NOTES: REQUEST ADJUSTABLE BED FROM [employer]. THIS WILL AID IN POSITIONING SO PATIENT CAN LAY ON HIS BACK FOR SLEEP AND AIDE WITH PAIN CONTROL. CONTINUE HOME EXERCISE AND STRETCHING. PROCEDURE CODES FA211 ESTABILISHED PATIENT [facility] FACILITY CHARGE DISPOSITION & COMMUNICATION FOLLOW UP 6 MONTHS (REASON: FOLLOW-UP ON WORK[employer] COMP REQUEST FOR ADJUSTABLE BED/MEDICATION MANAGEMENT/LOW BACK PAIN WITH RIGHT LEG RADICULOPATHY) ELECTRONICALLY SIGNED BY ADELE SANDERSON ON 05/15/2020 AT 10:55 AM EST DISCLAIMER : THIS IS A VISIT SUMMARY EXTRACTED FROM THE [employer] CHART. IT IS NOT A COPY OF THE [employer] PROGRESS NOTE. REGULO
== END ==
LOC: M PAIN 11:00
PROVIDERS: ATTEND Nurse Practitioner Family
DX: M96.1 Postlaminectomy syndrome, not elsewhere classified (principal); E11.40 Type 2 diabetes mellitus with diabetic neuropathy, unspecified; Z96.89 Presence of other specified functional implants; Z88.2 Allergy status to sulfonamides; Z88.5 Allergy status to narcotic agent; Z88.8 Allergy status to other drugs, medicaments and biological substances; Z79.4 Long term (current) use of insulin; Z79.899 Other long term (current) drug therapy

== ENCOUNTER → 2020-11-11 | Outpatient (CLI) | payer OTHER ==
[~2020-11-11] MED LIST changes: -OXYC1TAB15 PO; +OXYC7.5T3 PO
--- NOTE | 2020-11-13 15:35 | ECWPNPC ---
PATIENT NAME: CASH AYERS : 1955 GENDER: MALE VISIT DATE: 11/11/2020 DISCHARGE DATE: 11/11/20 1404 VISIT LOCKED DATE TIME: PHYSICIAN: ESTELA CONNOLLY RESOURCE: ESTELA CONNOLLY REASON FOR APPOINTMENT 1. FOLLOW-UP ON WORK[employer] REQUEST FOR ADJUSTABLE BED/MEDICATION MANAGEMENT/LOW BACK PAIN WITH LEFT LEG RADICULOPATHY HISTORY OF PRESENT ILLNESS DEPRESSION SCREENING: PHQ-2 (2015 EDITION) LITTLE INTEREST OR PLEASURE IN DOING THINGS?NOT AT ALL FEELING DOWN, DEPRESSED, OR HOPELESS?NOT AT ALL TOTAL SCORE0 GENERAL: HERE FOR FOLLOW-UP AND MEDICATION MANAGEMENT OF LOW BACK PAIN WITH LEFT LEG RADICULOPATHY. THIS IS A WORK-RELATED INJURY. WILL BE STARTING HOME DIALYSIS IN THE NEAR FUTURE. REPORTS DORSAL COLUMN STIMULATOR IS WORKING GREAT FOR HIS PAIN. FINDS CYMBALTA HELPFUL. THIS IS A WORK-RELATED INJURY. -. FALL RISK SCREENING: SCREENING MULTPY FALLS THIS YEAR NO MAJOR INJURIES , PATIENT STATED HE DID NOT GO THE ER ANY OF FALLS. PAIN SCREENING: PATIENT HAS A COMPLAINT OF ACUTE OR CHRONIC PAIN :YES LOCATION OF PAIN:LOW BACK, LEG(S) LEFT INTENSITY OF PAIN (SCALE OF 1 TO 10):9 WHAT DOES YOUR PAIN FEEL LIKE:ACHING, BURNING, STABBING, TENDER, THROBBING, SORE, SHOOTING DURATION:CONTINOUS, CONSTANT, ALL DAY PAIN IS INCREASED BY:ACTIVITIES PAIN IS DECREASED BY:OTHERS STUMPLATER NURSING NOTE: -. PAIN CENTER INTAKE QUESTIONS: DO YOU HAVE A HISTORY OF MRSA? :NO DO YOU TAKE A BLOOD THINNERS? :NO DO YOU HAVE ANY BLEEDING DISORDERS? :NO ANY NEW NUMBNESS OR WEAKNESS IN YOUR LEGS OR ARMS? :NO ANY PACEMAKER,DEFIBRILLATOR, OR DORSAL COLUMN STIMULATOR? :YES DCS DO YOU HAVE ANY RASHES OR OPEN SORES? :NO ARE YOU ALLERGIC TO IV DYE? :NO ARE YOU DIABETIC? :YES ANY NEW PROBLEMS WITH YOUR MEDICATIONS? :NO HAVE YOU RECEIVED A VACCINE IN THE PAST 30 DAYS? :NO DO YOU PLAN TO RECEIVE A VACCINE IN THE NEXT 21 DAYS? :NO DO YOU NEED ANY PRESCRIPTION? :NO DO YOU TAKE ANY IMMUNOSUPPRESSIVE MEDICATIONS? :NO IS THERE A CHANCE YOU COULD BE ? :NO ARE YOU BREAST FEEDING? :NO CURRENT MEDICATIONS TAKING TRESIBA FLEXTOUCH 100 UNIT/ML SOLUTION PEN-INJECTOR 144 UNITS SUBCUTANEOUS DAILY TAKING COREG 12.5 MG TABLET ORALLY BID TAKING CHOLECALCIFEROL 5000 UNIT CAPSULE ORALLY DAILY TAKING CINNAMON 500 MG CAPSULE ORALLY BID TAKING NOVOLOG FLEXPEN 100 UNIT/ML SOLUTION SUBCUTANEOUS SLIDING SCALE WITH MEALS TAKING TURMERIC 500 MG CAPSULE ORALLY TAKING TORSEMIDE 5 MG TABLET 1 TABLET ORALLY ONCE A DAY TAKING CYMBALTA 60 MG CAPSULE DELAYED RELEASE PARTICLES 1 CAPSULE ORALLY BID NOT-TAKING TRULICITY 0.75 MG/0.5ML SOLUTION PEN-INJECTOR 1.5 DIRECTED SUBCUTANEOUS WEEKLY, NOTES: UNSURE OF STRENGTH NOT-TAKING ASPIR-81 81 MG TABLET DELAYED RELEASE 1 TABLET ORALLY DAILY NOT-TAKING COLACE 100 MG CAPSULE 1 CAPSULE NEEDED ORALLY ONCE A DAY NOT-TAKING FUROSEMIDE 20 MG TABLET 1 TABLET ORALLY BID NOT-TAKING HYDROCHLOROTHIAZIDE 25 MG TABLET 1 TABLET ORALLY BID NOT-TAKING PERCOCET 7.5-325 MG TABLET 1 TABLET NEEDED ORALLY EVERY 4-6 HORS PRN PAIN MDD=6 MEDICATION LIST REVIEWED AND RECONCILED WITH THE PATIENT PAST MEDICAL HISTORY IDDM HTN CHRONIC LOW BACK PAIN DIABETIC NEUROPATHY PNEUMONIA KIDNEY STONES MODERNA 1ST 07/04/2020 2ND: 08/01/2020 MULTPY FALLS THIS YEAR NO MAJOR INJURIES , PATIENT STATED HE DID NOT GO THE ER ANY OF FALLS. ALLERGIES FENTANYL: NAUSEA AND VOMITING - ALLERGY SULFA (FOR ALLERGY USE ONLY): HIVES - ALLERGY ALEX INHIBITOR (FOR ALLERGIES USE ONLY): THROAT CLOSES - ALLERGY PREGABALIN: EDEMA SOB - ALLERGY BUPRENORPHINE: UPSET STOMACH - ALLERGY CELEBREX: SKIN BLISTERS - ALLERGY SURGICAL HISTORY DOUBLE INGUINAL HERNIA 1985 EYE SURGERY 1960 EYE SURGERY 1985 BILATERAL CATERACATS 2014 BACK SURGERY 1996 BACK SURGERY 2004 SKIMCOAT OF EYES REMOVED 07/2019 BELLY BUTTON HERNIA 10/2020 CATHETER PUT IN FOR KIDNEY 10/2020 SOCIAL HISTORY GENERAL: TOBACCO USE ARE YOU A:NONSMOKER NEVER SMOKER LATEX QUESTIONNAIRE LATEX ALLERGY : HAVE YOU EVER DEVELOPED ANY TYPE OF REACTION AFTER HANDLING LATEX PRODUCTS SUCH RUBBER GLOVES, CONDOMS, DIAPHRAGMS, BALLOONS, SOCKS, OR UNDERWEAR?NO LATEX ALLERGY : HAVE YOU EVER DEVELOPED ANY TYPE OF REACTION DURING OR AFTER DENTAL APPOINTMENT, VAGINAL/RECTAL EXAMINATION, SURGICAL PROCEDURE, OR ANY OTHER EXPOSURE?NO LATEX RISK : HAVE YOU EVER HAD ANY DIFFICULTY BREATHING OR HIVES AFTER EATING OR HANDLING ANY FRUITS, OR VEGETABLES; SUCH KIWI, BANANAS, STONE FRUITS, OR CHESTNUTSNO LATEX RISK : DO YOU HAVE A PREVIOUS PERSONAL HISTORY OF MORE THAN NINE SURGERIES, SPINA BIFIDA, OR REPEATED CATHERIZATIONS? NO LATEX RISK : ARE YOU FREQUENTLY EXPOSED TO LATEX PRODUCTS IN YOUR OCCUPATION?NO DATE ASKED : 11/11/2020 ALCOHOL USE: NO. ALCOHOL SCREENING DID YOU HAVE A DRINK CONTAINING ALCOHOL IN THE PAST YEAR?NO POINTS0 INTERPRETATIONNEGATIVE RECREATIONAL DRUG USE DRUG USE?NO CAFFEINE CAFFEINE USE?YES 2-3 CUPS COFFEE/DAY, SEVERAL ICE TEA/DAY JAINISM [id number] JEW LANGUAGE LANGUAGES SPOKEN:MALDIVIAN EDUCATION LEVEL OF EDUCATION:HIGH SCHOOL LEARNING BARRIERS / SPECIAL NEEDS CHANGE FROM LAST VISIT?NO BARRIERS TO LEARNING?NO HEARING IMPAIRED?YES VISION IMPAIRED?YES :CORRECTIVE LENSES COGNITIVELY IMPAIRED?NO READINESS TO LEARN?YES LEARNING PREFERENCES?NO LEARNING CAPABILITIES PRESENT?YES EMOTIONAL BARRIERS?NO SPECIAL DEVICES?YES :CANE, BRACE LEFT KNEE BRACE 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 DIET: REGULAR. EXERCISE: NO REGULAR EXERCISE DUE TO PAIN. MARITAL STATUS: . - PFS REFERRAL NEEDED?NO CLERGY REFERRAL NEEDED?NO PUBLIC HEALTH REFERRAL NEEDED?NO WAS THE PROVIDER NOTIFIED OF ANY PERTINENT INFO?YES HAS THE PATIENT BEEN EDUCATED REGARDING HIS/HER PLAN OF CARE?YES HAS THE PATIENT BEEN EDUCATED REGARDING PAIN, THE RISK FOR PAIN, THE IMPORTANCE OF EFFECTIVE PAIN MANAGEMENT, AND THE PAIN ASSESSMENT PROCESS?YES ADVANCE DIRECTIVE ADVANCE DIRECTIVE DISCUSSED WITH PATIENT:YES PATIENT DECLINED HCP INFORMATION AT THIS TIME. 02/03/17 1410 REVIEWED. [id number] REVIEWED WITH PT LASREVIEWED WITH PATIENT 11/16/18 1312 JSREVIEWED WITH PATIENT 03/19/19 1313 JS. HOSPITALIZATION/MAJOR DIAGNOSTIC PROCEDURE SURGERY RELATED REVIEW OF SYSTEMS CONSTITUTIONAL: ANY RECENT FEVER NO . CHILLS NO . WEIGHT CHANGE OF UNKNOWN REASONS NO . GASTROENTEROLOGY: NEW UNEXPLAINABLE CHANGES IN BOWEL CONTROL NO . CONSTIPATION NO . GENITOURINARY: ANY NEW CHANGE IN BLADDER CONTROL? NO . NEUROLOGY: NEW ONSET DIZZINESS OR NEUROLOGICAL CHANGES NOT MENTIONED NO . NEW NUMBNESS OR PAIN PATTERNS NOT MENTIONED AND PERTINENT TO TODAY'S VISIT NO . CARDIOLOGY: NEW CHEST PRESSURE NO . PATIENT DENIES NO . RESPIRATORY: UNEXPLAINABLE COUGH NO . NEW SHORTNESS OF BREATH NO . BLOOD PRESSURE IS ELEVATED TODAY. PATIENT WILL TAKE HOME BLOOD PRESSURE READINGS AND REPORT TO [facility]. STATES THAT THEY ARE REDUCING HIS BLOOD PRESSURE MEDICATIONS DUE TO HIS SIGNIFICANT WEIGHT LOSS OVER THE PAST YEAR. VITAL SIGNS WT 242 LBS, HT 68 IN, BMI 36.79 INDEX, BP 192/ MM HG, HR 73 /MIN, RR 18 /MIN, TEMP 98.1 F, OXYGEN SAT % 96%, SAFE IN ENV? (Y/N) YEST.DONAVON HERNANDEZ. EXAMINATION GENERAL EXAMINATION: GENERALAWAKE,ALERT ,PLEAASANT . PSYCHAFFECT NORMAL . LUNGS:LUNG ISSA ARE CLEAR TO AUSCULTATION BILATERALLY. GOOD MOVEMENT OF AIR . HEART:S1, S2 IN A REGULAR RATE AND RHYTHM. NO SIGNIFICANT MURMURS, RUBS OR GALLOPS NOTED . ASSESSMENTS POST LAMINECTOMY SYNDROME - M96.1 (PRIMARY) TREATMENT POST LAMINECTOMY SYNDROME REFILL CYMBALTA CAPSULE DELAYED RELEASE PARTICLES, 60 MG, 1 CAPSULE, ORALLY, BID, 30 DAYS, 60 CAPSULE, REFILLS 5 PROCEDURES PN WORKMANS' COMP OPINION IN YOUR OPINION, WAS THE INCIDENT THAT THE PATIENT DESCRIBED THE COMPETENT MEDICAL CAUSE OF THIS INJURY/ILLNESS? YES ARE THE PATIENT'S COMPLAINTS CONSISTENT WITH HIS/HER HISTORY OF THE INJURY/ILLNESS? YES IS THE PATIENT'S HISTORY OF THE INJURY/ILLNESS CONSISTENT WITH YOUR OBJECTIVE FINDING? YES WHAT IS THE PERCENTAGE OF TEMPORARY IMPAIRMENT? MODERATE TO MARKED = 66.7% IS THE PATIENT WORKING? NO DOCTOR ON SITE: ONUR BIRMINGHAM MD , ONUR BIRMINGHAM MD PROCEDURE CODES FA211 ESTABILISHED PATIENT [facility] FACILITY CHARGE DISPOSITION & COMMUNICATION FOLLOW UP 6 MONTHS (REASON: LOW BACK PAIN/LEFT LEG PAIN/MEDICATION MANAGEMENT/WORKMEN'S COMP.) ELECTRONICALLY SIGNED BY ADELE SANDERSON ON 11/12/2020 AT 09:19 AM EDT DISCLAIMER : THIS IS A VISIT SUMMARY EXTRACTED FROM THE [employer] CHART. IT IS NOT A COPY OF THE [employer] PROGRESS NOTE. REGULO
== END ==
LOC: M PAIN 13:30
PROVIDERS: ATTEND Nurse Practitioner Family
DX: M96.1 Postlaminectomy syndrome, not elsewhere classified (principal); E11.40 Type 2 diabetes mellitus with diabetic neuropathy, unspecified; Z96.89 Presence of other specified functional implants; Z88.2 Allergy status to sulfonamides; Z88.5 Allergy status to narcotic agent; Z88.8 Allergy status to other drugs, medicaments and biological substances; Z79.4 Long term (current) use of insulin; Z79.899 Other long term (current) drug therapy

== ENCOUNTER → 2021-06-22 | Outpatient (REF) | LOC: M PLAIMG 14:03 | PROVIDERS: ATTEND Internal Medicine | DX: R06.02 Shortness of breath (principal) ==

== ENCOUNTER → 2021-08-11 | Outpatient (CLI) | payer OTHER | LOC: M PAIN 13:45 | PROVIDERS: ATTEND Anesthesiology | DX: M96.1 Postlaminectomy syndrome, not elsewhere classified (principal); E11.40 Type 2 diabetes mellitus with diabetic neuropathy, unspecified; Z96.89 Presence of other specified functional implants; Z88.2 Allergy status to sulfonamides; Z88.5 Allergy status to narcotic agent; Z88.8 Allergy status to other drugs, medicaments and biological substances; Z79.4 Long term (current) use of insulin; Z79.899 Other long term (current) drug therapy ==

== ENCOUNTER → 2021-08-11 | Outpatient (REF) | payer OTHER | LOC: M CARPUL 08:21 → EDSTATUS 08:30 | DX: I35.8 Other nonrheumatic aortic valve disorders (principal); I31.3 Pericardial effusion (noninflammatory); I42.2 Other hypertrophic cardiomyopathy; I51.9 Heart disease, unspecified ==

== ENCOUNTER → 2022-04-01 | Outpatient (CLI) | payer OTHER | LOC: M PAIN 13:00 | PROVIDERS: ATTEND Anesthesiology | DX: M96.1 Postlaminectomy syndrome, not elsewhere classified (principal); G89.29 Other chronic pain; E11.40 Type 2 diabetes mellitus with diabetic neuropathy, unspecified; I10 Essential (primary) hypertension; Z96.89 Presence of other specified functional implants; Z88.2 Allergy status to sulfonamides; Z88.5 Allergy status to narcotic agent; Z88.8 Allergy status to other drugs, medicaments and biological substances; Z79.4 Long term (current) use of insulin; Z79.899 Other long term (current) drug therapy ==

== ENCOUNTER → 2023-06-06 | Outpatient (CLI) | payer OTHER | LOC: M PAIN 11:15 | PROVIDERS: ATTEND Nurse Practitioner Family | DX: M96.1 Postlaminectomy syndrome, not elsewhere classified (principal); G89.29 Other chronic pain; I10 Essential (primary) hypertension; M54.50 Low back pain, unspecified; E11.40 Type 2 diabetes mellitus with diabetic neuropathy, unspecified; Z79.4 Long term (current) use of insulin; Z79.899 Other long term (current) drug therapy; Z88.2 Allergy status to sulfonamides; Z88.5 Allergy status to narcotic agent; Z88.8 Allergy status to other drugs, medicaments and biological substances ==

== ENCOUNTER → 2023-09-05 | Outpatient (CLI) | payer OTHER | LOC: M PAIN 10:15 | PROVIDERS: ATTEND Nurse Practitioner Family | DX: M96.1 Postlaminectomy syndrome, not elsewhere classified (principal); Z79.899 Other long term (current) drug therapy; Z88.2 Allergy status to sulfonamides; Z88.5 Allergy status to narcotic agent; Z88.8 Allergy status to other drugs, medicaments and biological substances ==

== ENCOUNTER → 2023-12-07 | Outpatient (CLI) | payer OTHER | LOC: M PAIN 11:15 | PROVIDERS: ATTEND Nurse Practitioner Family | DX: M96.1 Postlaminectomy syndrome, not elsewhere classified (principal); G89.29 Other chronic pain; I12.0 Hypertensive chronic kidney disease with stage 5 chronic kidney disease or end stage renal disease; M54.50 Low back pain, unspecified; E11.40 Type 2 diabetes mellitus with diabetic neuropathy, unspecified; Z79.4 Long term (current) use of insulin; Z79.899 Other long term (current) drug therapy; Z88.2 Allergy status to sulfonamides; Z88.5 Allergy status to narcotic agent; Z88.8 Allergy status to other drugs, medicaments and biological substances ==

== ENCOUNTER → 2024-05-02 | Outpatient (CLI) | payer OTHER | LOC: M PAIN 14:45 | PROVIDERS: ATTEND Nurse Practitioner Family | DX: M96.1 Postlaminectomy syndrome, not elsewhere classified (principal); G89.29 Other chronic pain; Z79.4 Long term (current) use of insulin; Z79.899 Other long term (current) drug therapy; Z80.1 Family history of malignant neoplasm of trachea, bronchus and lung; Z80.3 Family history of malignant neoplasm of breast; Z80.8 Family history of malignant neoplasm of other organs or systems; Z88.2 Allergy status to sulfonamides; Z88.5 Allergy status to narcotic agent; Z88.8 Allergy status to other drugs, medicaments and biological substances ==